=== PATIENT | male | born 1935 | race African-American/Black ===

== ENCOUNTER 2016-11-12 12:25 | Inpatient (IN) ==
[2016-11-12 12:58] LABS: Basophils % 0.1 % (0.0-0.8); Eosinophils % 0.3 % (0.00-10.9); Hematocrit 44.4 VOL% (42.0-52.0); Hemoglobin 14.1 GM/DL (14.0-18.0); Immature Granulocytes % 0.4 %; Immature Granulocytes Absolute 0.04 #; Lymphocytes # 0.4 10*3/uL (1.4-4.0); Lymphocytes % 3.9 % (21.2-54.2); Mean Corpuscular HGB Conc 31.8 GM/DL (32-36); Mean Corpuscular Hemoglobin 29 PG (27-34); Mean Corpuscular Volume 91.9 FL (87-102); Mean Platelet Volume 12.4 FL (9.6-12.0); Monocytes # 0.7 10*3/uL (0.11-0.8); Monocytes % 7.2 % (1.7-12.7); NRBC # 0.03 10*3/uL; Neutrophils # 8.7 10*3/uL (1.4-7.4); Neutrophils % 88.1 % (38.7-73.9); Platelet Count 130 T/CUMM (130-400); Red Blood Count 4.83 MC/CUMM (3.8-5.5); Red Cell Distribution Width 16.9 % (9.3-17.3); White Blood Count 9.9 T/CUMM (4-12)
[2016-11-12] MEDS ORDERED: SODIUM CHLORIDE 0.9% 1,500 ML IV ONE (12:59)
--- NOTE | 2016-11-12 13:06 | XRay Report ---
XR chest 1V portable Indication: Altered level of consciousness. Fever. Comparison: Chest x-ray 01/05/2013 Technique: Portable AP chest was performed. Findings: Right-sided pleural effusion is resolved. The right lung demonstrates minimal residual reticular and linear interstitial markings and perhaps minimal bronchiectasis within the right infrahilar lung. Lungs otherwise appear clear for degree of inspiration. Bones and soft tissues appear stable. Impression: 1. Improved appearance of the right lower chest with resolution of right-sided pleural effusion and minimal residual stranding interstitial markings that may in part reflect scarring. 2. Minimal bronchiectasis is suggested within the right infrahilar lung. 11/12/2016 1:02 PM PROCEDURE INTERPRETED AT [facility] DEPARTMENT OF RADIOLOGY Final Report Signed by: Dr. Pascual Ca
--- NOTE | 2016-11-12 13:22 | CT Report ---
CT head/brain wo con Indication: Altered level of consciousness. Comparison: CT brain 12/02/2012. Technique: CT of the brain was performed without administration of intravenous contrast. The CT examination was performed using one or more of the following dose reduction techniques: Automatic exposure control, adjustment of the mA and kV according to patient size, use of acute or iterative reconstruction techniques. Findings: There is no evidence of acute intracranial mass, hemorrhage, or infarction. Large focus of low attenuation involving cortex and subcortical white matter of the left parietal lobe is present with minimal to no ex vacuo dilatation of the left lateral ventricle. Additional more focal area of subcortical white matter hypoattenuation involving parietal cortex is present. Generalized cerebral atrophy is present. Areas of decreased attenuation within the periventricular white matter and cerebral white matter are present which could be compatible with microvascular ischemia. The basal cisterns are patent. No significant abnormality is demonstrated to involve the posterior fossa or cerebellum. Orbits and globes demonstrate no evidence of acute pathology. Bilateral cataracts are suggested. The paranasal sinuses are clear. No significant abnormality is demonstrated to involve the mastoid air cells. The calvarium and overlying soft tissues demonstrate no evidence of acute pathology. Impression: 1. 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 Generalized atrophy and findings compatible with microvascular ischemia additionally remain present. 11/12/2016 1:12 PM PROCEDURE INTERPRETED AT [facility] DEPARTMENT OF RADIOLOGY Final Report Signed by: Dr. Pascual Ca
--- NOTE | 2016-11-12 13:26 | XRay Report ---
XR foot 2V RT Indication: Discomfort involving second toe. Comparison: None. Technique: AP and lateral images of the right foot were submitted. Findings: There is no evidence of acute pathology affecting the bony structure of the right foot. Soft tissues appear intact. Extensive arterial calcifications present throughout the interdigital branches of the arteries as well as lower anterior posterior tibial arteries and dorsalis pedis artery. Impression: 1. No acute osseous findings are demonstrated. 2. Extensive atherosclerotic calcification is present throughout the lower leg and foot. 11/12/2016 1:23 PM PROCEDURE INTERPRETED AT [facility] DEPARTMENT OF RADIOLOGY Final Report Signed by: Dr. Pascual Ca
[2016-11-12 13:34] LABS: Albumin 3.2 G/DL (3.4-5.0); Calcium 9.3 MG/DL (8.5-10.1); Magnesium 2.8 MG/DL (1.8-2.4); Osmolality,Calculated 318.7 MOS/KG (273-304); Potassium 4.3 MMOL/L (3.5-5.1); Total Protein 6.8 G/DL (6.4-8.3)
[2016-11-12 13:35] LABS: Lactic Acid 3.3 MMOL/L (0.4-2.0)
[2016-11-12] MEDS ORDERED: PIPERACILLIN/TAZOBACTAM 3,375 MG VIAL IV ONE (13:36)
[2016-11-12] MEDS: PIPERACILLIN/TAZOBACTAM 3,375 MG in SODIUM CHLORIDE 0.9% 100 ML IV SCH ×2 (13:40→21:04)
--- NOTE | 2016-11-12 13:44 | Emergency Department Note ---
Fernanda Fields Brittany, am scribing for, and in the presence of, John Cortes MD 13:18. Sophia Fields Phillip K, MD, personally performed the services described in this documentation, ascribed by Elana Michael in my presence, and it is both accurate and complete 344 . Arrival - Arrival Chief Complaint: Altered Mental Status Stated Complaint: altered LOC/fever ED Nursing Triage Note: Brought in by EMS, [facility] for further evaluation of altered LOC and fever-unknown onset. Nursing staff reports that they found patient slumped over in his wheelchair, but are unsure of how long he has been like this. Family reports patient was normal last night. Mode of Arrival: Stretcher Limitations: Altered Mental Status Source: Family Time Seen by Provider: 11/12/16 12:45 - History of Present Illness HPI Narrative: This will be limited secondary to pt's current mental status and dementia. This is an 81 y/o black male,who presents to the ED by EMS for further neurological evaluation. His family reports pt is a current resident of [facility]. Per halfway staff, pt was found slumped over in his wheelchair. The halfway staff is unsure of how long pt was this way. His family reports pt' s Last Known Well Time was last night. senior living staff report a fever which started last night. Pt's family denies a cough. His family states 2 weeks ago, pt had a debridment of the right great toe at [facility]. No other complaints/pain in the ED at this time. Pt has a PMHx of dementia, HI, CAD, COPD, PE, and renal failure. Pt denies a surgical Hx. Pt denies a family medical Hx. Pt denies a social Hx. Onset (ago): hour(s) (Started earlier this morning) Consistency: constant Severity: moderate, severe Allergies/Adverse Reactions: Allergies Allergy/AdvReac Type Severity Reaction Status Date / Time No Known Allergies Allergy Verified 11/03/16 09:39 Review of System - Review of System 12 point system: reviewed and no additional remarkable complaints except as stated - Review of System Constitutional: Present: fever Respiratory: Absent: cough Neurological: Present: other (AMS) Medical,Surgical,& Family Hx - Medical History Cardio: History of: CAD, [place] Neurology: History of: Dementia Respiratory: History of: COPD, Pulmonary Embolism - Social History Smoking Status: Unknown if ever smoked Frequency of Alcohol Use: Unknown Type of Drug Use: Unknown Exam Vital Signs: Vital Signs Temperature 101.3 F H 11/12/16 12:33 Pulse Rate 89 11/12/16 12:33 Respiratory Rate 19 11/12/16 12:33 Blood Pressure 81/42 11/12/16 12:33 O2 Sat by Pulse Oximetry 99 11/12/16 12:33 - General General appearance: in no apparent distress, other (Does not follow commands) - Head Head exam: Present: atraumatic, normocephalic, normal inspection - Eye Eye exam: Present: normal appearance, PERRL, EOMI. Absent: nystagmus, miosis, mydriasis - ENT ENT exam: Present: mucous membranes dry, TM's normal bilaterally, normal external ear exam - Neck Neck exam: Present: normal inspection, full ROM, trachea midline. Absent: tenderness, meningismus, lymphadenopathy, thyromegaly - Chest Chest inspection: Present: normal inspection, symmetric chest wall rise. Absent : tenderness, rash, abscess - Respiratory Respiratory exam: Present: rales (Rales noted in the right base) - Cardiovascular Cardiovascular exam: Present: regular rate, normal rhythm, normal heart sounds. Absent: murmur, rubs, gallop, clicks, JVD - Abdominal Exam Abdominal exam: Present: soft, normal bowel sounds. Absent: distention, tenderness, guarding, rebound, rigidity - Rectal Exam Rectal exam: Present: deferred - Extremities Exam Extremities exam: Present: normal capillary refill, other (Ulcer noted to the dorsal middle index toe, as well as a dark discoloration noted to the plantar aspect of the right foot. ) - Back Exam Back exam: Present: normal inspection, full ROM. Absent: tenderness, muscle spasm, rashes - Neurological Exam Neurological exam: Absent: motor sensory deficit - Psychiatric Psychiatric exam: Present: normal affect, normal mood. Absent: depressed, agitated, anxious, flat affect, manic - Skin Skin exam: Present: warm, dry, intact, normal color. Absent: rash, cyanosis, diaphoresis, erythema, pallor, mottled Results - Labs CBC & BMP: 11/12/16 12:48 11/12/16 12:48 Lab Results: I have reviewed the patients labs Labs: Laboratory Tests 11/12/16 11/12/16 12:48 12:48 WBC 9.9 RBC 4.83 Hgb 14.1 Hct 44.4 MCV 91.9 MCH 29 MCHC 31.8 L RDW 16.9 Plt Count 130 MPV 12.4 H Neut % (Auto) 88.1 H Lymph % (Auto) 3.9 L Washburn % (Auto) 7.2 Eos % (Auto) 0.3 Baso % (Auto) 0.1 Neut # (Auto) 8.7 H Lymph # (Auto) 0.4 L [place]burn # (Auto) 0.7 Eos # (Auto) 0.0 Baso # (Auto) 0.0 Immature Gran % 0.4 Nucleated RBC % 0.3 Immature Gran # 0.04 Nucleated RBCs # 0.03 Sodium 152 H Potassium 4.3 Chloride 113 H Carbon Dioxide 31 Anion Gap 12.3 BUN 61 H Creatinine 2.70 H GFR Calculation 22 BUN/Creatinine Ratio 22.00 H Glucose 115 H Calculated Osmolality 318.7 H Lactic Acid 3.3 H Calcium 9.3 Magnesium 2.8 H Total Bilirubin 2.00 H AST 45 H ALT 49 Alkaline Phosphatase 151 H Total Protein 6.8 Albumin 3.2 L Globulin 3.6 H Albumin/Globulin Ratio 0.8 L - Diagnostic Findings Procedure: Chest x-ray: report reviewed by me (Improved appearance of the right lower chest with resolution of right-sided pleural effusion and minimal residual stranding interstitial markings that may in part reflect scarring. 2. Minimal bronchiectasis is suggested with the right infrahilar lung. ), CT: report reviewed by me (Head CT: 1. Remote infarcts involving the left parietal lobe and right parietal lobe have changed little since the comparison study. Generalized atrophy and findings compatible with microvascular ischemia additionally remain present. ), X-ray: report reviewed by me (Right foot X-ray: No acute osseous findings are demonstrated. 2. Extensive atherosclertoic calcification is present throughtout the lower leg and foot. ) Disposition Clinical Impression: Sepsis, Hypernatremia, Altered mental status, Ulcer of left second toe Case discussed with: patient, patient's family Disposition: Still a Patient Condition: Guarded Additional Instructions: Admit to the hospitalist service for IV fluids and antibiotics Sepsis - Sepsis Classification of Sepsis: Sepsis
[2016-11-12 13:54] LABS: Band Neutrophils 2 % (0-10); Hypochromasia 2+; Lymphocytes 2 % (20-55); Microcytosis Slight; Platelet Estimate Decreased; Segmented Neutrophils 89 % (50-85); Total Cells Counted 100
[2016-11-12 14:09] LABS: Apearance,Urine CLEAR (Clear); Bilirubin,Urine Negative (Negative); Blood, Urine Negative (Negative); Glucose,Urine (UA) Negative (Negative); Hyaline Casts,Urine 5 /LPF (0-3); Ketones,Urine Negative (Negative); Mucus,Urine Occasional /LPF (Occasional); Nitrite,Urine Negative (Negative); Protein,Urine Negative; RBC,Urine 1 /HPF (0-4); Squamous Epithelial Cell,Urine Occasional /HPF (0-10); Urine Color Yellow (Yellow); Urine Specific Gravity 1.011 (1.001-1.035); WBC,Urine 1 /HPF (0-6)
[2016-11-12] MEDS: DOPamine 800 MG/250 ML PREMIX IV SCH (15:06)
[2016-11-12] MEDS ORDERED: DOPamine 800 MG/250 ML PREMIX IV ONE (15:06)
--- NOTE | 2016-11-12 15:12 | XRay Report ---
History: Line placement Date: 11/12/2016 at 3:01 PM Study: Chest x-ray AP portable Comparison exam: 11/12/2016 at 12:21 PM The right IJ central line is well positioned with its tip at the atriocaval junction level. There is no pneumothorax. There is mild cardiomegaly. The mediastinal contour is unchanged. The pulmonary vasculature is not engorged. The lungs are unchanged with some mild subsegmental atelectasis in right lung base. There is no gross pleural effusion. Osseous structures are unchanged. Impression: There is no evidence of pneumothorax following placement of the right IJ central line. Otherwise unchanged from the earlier study PROCEDURE INTERPRETED AT [facility] DEPARTMENT OF RADIOLOGY Final Report Signed by: Dr. Venus Hoffman
--- NOTE | 2016-11-12 15:14 | Event Note ---
Central line procedure note-placement of internal jugular triple-lumen catheter. The patient is an 81-year-old -[place] male with sepsis and hypotension. A triple-lumen IJ was placed using maximum barrier precautions. The patient was seen and examined. The site was marked. A timeout was taken. The patient's identity, procedure, consent and location were identified. The patient was prepped and draped in sterile fashion. Local anesthesia was given with 1% lidocaine plain. The internal jugular vein was accessed and the guide wire placed without difficulty. After using the tissue dilator, the triple lumen catheter was placed over the wire and the wire removed intact. All ports were flushed with normal saline and functioned well. The central line was secured with the enclosed suture. A chest x-ray was reviewed by me to confirm placement. The patient tolerated the procedure well. The nurse will place the appropriate dressing according to the hospital protocols.
[2016-11-12] MEDS ORDERED: SODIUM CHLORIDE 0.9% 1,000 ML IV STA (15:24)
--- NOTE | 2016-11-12 15:24 | Hospitalist History & Physical ---
<Luis Daniel Hernández - Last Filed: 11/12/16 15:55> Assessment and Plan (1) Altered mental status Status: Acute Assessment and plan: Admit to ICU for close monitoring. Pt. is septic and has dementia. Sepsis etiology unclear. Blood cultures obtained, CXR obtained. Repeat bmp, cbc, lactic acid, ammonia in am. Current Visit: Yes (2) Hypernatremia Status: Acute Assessment and plan: Pt. receiving IVF. Will recheck in am. Current Visit: Yes (3) Sepsis Status: Acute Assessment and plan: Admit to ICU for close monitoring. Pt was hypotensive with fever. Sepsis protocol in place. IVF hydration. Blood culture obtained stat. CXR performed ( RLL). Check pt/inr, cbc, lactic acid in am. Urine obtained. Current Visit: Yes Qualifiers: Sepsis type: sepsis due to unspecified organism Qualified Code(s): A41.9 - Sepsis, unspecified organism (4) Ulcer of left second toe Status: Acute Assessment and plan: Consult wound care to evaluate. Culture wound to r/o any infection source Current Visit: Yes Qualifiers: Non-pressure ulcer stage: unspecified non-pressure ulcer stage Qualified Code(s): L97.529 - Non-pressure chronic ulcer of other part of left foot with unspecified severity (5) Acute kidney injury superimposed on chronic kidney disease Status: Acute Assessment and plan: Pt's bun/creatinine are 61/2.70. Pt. has received fluid boluses in ED. Will recheck labs in am. Monitor strict I&Os for patient. [place] cath has been instructed. Current Visit: Yes (6) Hyperbilirubinemia Status: Acute Assessment and plan: Recheck lab in am. Obtain abdominal US. Current Visit: Yes (7) RLL pneumonia Status: Acute Assessment and plan: CXR revealed pneumonia. Pt. will be treated with Levaquin and Zosyn. Continous pulse ox monitoring. Current Visit: Yes Qualifiers: Pneumonia type: due to unspecified organism Qualified Code(s): J18.1 - Lobar pneumonia, unspecified organism (8) Dementia Status: Chronic Assessment and plan: Chronic issue. Restart medications. Current Visit: Yes Qualifiers: Dementia type: Alzheimer's disease History of Present Illness History of present illness: Mr. Jensen is a 81 year old black male with a history of htn, afib, CHF, [place], stroke, dementia, and renal failure that presents to the ED via EMS for further evaluation of altered mental status. The patient is a resident at the [facility]. He has been a resident there since last January when one of his granddaughters (who is POA) was unable to handle his care. Pt. was found at the facility this morning "slumped over" in a wheelchair and EMS was called. His granddaughters are present at bedside and report that his condition today is significantly different from his normal state. They report that the patient ambulates independently and is alert. On examination in the ED, pt is clearly altered. He is arousable but not very responsive. Facial expressions exhibit pain when assessed but pt is unable to verbalize location. Pt. is also noted to be hypotensive (systolic in 70s) with a fever noted above 100. CXR revealed right lower pneumonia. Significant labs are Na 152, bun and creatinine of 61/ 2.7 (respectively), lactic acid 3.3, and a Bilirubin 2. Urine is clean. Patient' s case was discussed with Dr. Hernandez and the patient will be admitted to the hospitalist service and placed in the ICU for close monitoring. Home Medications Medication Instructions Recorded Confirmed Type Acetaminophen 650 mg PO Q4H PRN 11/12/16 11/12/16 History Albuterol Sulfate [Proair Hfa] 2 puffs INH Q4H PRN 11/12/16 11/12/16 History Aspirin EC Tab 81 mg PO DAILY 11/12/16 11/12/16 History Dextromethorph/Quinidine 20-10 1 capsule PO BID 11/12/16 11/12/16 History [Nuedexta] Digoxin Tab [Lanoxin Tab] 0.125 mg PO 1200 11/12/16 11/12/16 History Donepezil HCl [Donepezil HCl] 10 mg PO BEDTIME 11/12/16 11/12/16 History Ferrous Sulfate 325 mg PO BID 11/12/16 11/12/16 History Fluticasone/Salmeterol 250-50 2 puff INH BID 11/12/16 11/12/16 History [Advair 250-50] Furosemide [Furosemide] 80 mg PO BID 11/12/16 11/12/16 History HydrOXYzine PAMOATE CAP [Vistaril 50 mg PO Q1H PRN 11/12/16 11/12/16 History Cap] Magnesium Hydroxide Susp [Milk of 30 ml PO DAILY 11/12/16 11/12/16 History Magnesia] Memantine HCl [Namenda XR] 28 mg PO BEDTIME 11/12/16 11/12/16 History Metoprolol Tartrate Tab [Lopressor 12.5 mg PO BID 11/12/16 11/12/16 History Tab] Multivit-Min/FA/Lycopen/Lutein 1 each PO DAILY 11/12/16 11/12/16 History [Centrum Silver Tablet] Nitroglycerin [Nitro-Bid 2% Oint] 1 applic TOP 0800,1400 11/12/16 11/12/16 History Omeprazole 20 mg PO DAILY 11/12/16 11/12/16 History Sacubitril/Valsartan [Entresto 49 1 tablet PO BID 11/12/16 11/12/16 History mg-51 mg Tablet] Simvastatin [Simvastatin] 10 mg PO BEDTIME 11/12/16 11/12/16 History Warfarin Sodium [Warfarin Sodium] 3 mg PO SUTUTHSA 11/12/16 11/12/16 History Warfarin Sodium [Warfarin Sodium] 4 mg PO MOWEFR 11/12/16 11/12/16 History Allergies Allergy/AdvReac Type Severity Reaction Status Date / Time No Known Allergies Allergy Verified 11/03/16 09:39 Medical,Surgical,& Family Hx - Medical History Cardio: History of: CAD, IL Neurology: History of: Dementia Respiratory: History of: COPD, Pulmonary Embolism - Social History Smoking Status: Unknown if ever smoked Frequency of Alcohol Use: Unknown Type of Drug Use: Unknown Marital Status: Unknown 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 Absent: laceration to eyelids Pupils: Present: ROHINI - Neck Neck exam: Present: normal inspection - Respiratory Respiratory exam: Present: other (coarse) - Cardiovascular Cardiovascular exam: Present: regular rate and rhythm. Absent: JVD - GI/Abdominal GI/Abdominal exam: Present: normal bowel sounds, tenderness, soft - Extremities Exam Extremities exam: Present: other. Absent: edema - Expanded Right Lower Foot/Toe exam: Present: tenderness (2nd toe where ulcer is located) - Neurological Exam Neurological exam: Present: altered, other. Absent: alert - Psychiatric Psychiatric exam: Present: other (unable to fully assess due to mental status) - Skin Skin exam: Present: warm, dry, other (pt has open wound to 2nd toe on right toe) Results - Labs CBC & BMP: 11/12/16 12:48 11/12/16 12:48 Lab Results: I have reviewed the past 24 hour labs Sepsis - Sepsis Classification of Sepsis: Sepsis - Physical Exam Respiratory exam: decreased breath sounds, other (coarse) Capillary Refill: Less Than 3 Seconds Peripheral pulses: Radial (L): 3+/4+, Radial (R): 3+/4+, Dorsalis Pedis (L) PM: 3+/4+, Dorsalis Pedis (R) PM: 3+/4+, Posterior Tibialis (L): 3+/4+, Posterior Tibialis (R): 3+/4+ Cardiovascular exam: regular rate and rhythm Skin exam: normal color <Rui Hernandez - Last Filed: 11/17/16 10:10> Assessment and Plan - Time spent with patient Time spent with patient: Greater than 30 minutes (1) RLL pneumonia Status: Acute Current Visit: Yes Qualifiers: Pneumonia type: due to unspecified organism Qualified Code(s): J18.1 - Lobar pneumonia, unspecified organism (2) Lactic acidosis Status: Acute Current Visit: Yes (3) Metabolic encephalopathy Status: Acute Current Visit: Yes (4) Dementia Status: Chronic Current Visit: Yes Qualifiers: Dementia type: Alzheimer's disease (5) Hyperbilirubinemia Status: Acute Current Visit: Yes (6) Sepsis Status: Acute Current Visit: Yes Qualifiers: Sepsis type: sepsis due to unspecified organism Qualified Code(s): A41.9 - Sepsis, unspecified organism (7) Hypernatremia Status: Acute Current Visit: Yes (8) Ulcer of left second toe Status: Acute Current Visit: Yes Qualifiers: Non-pressure ulcer stage: unspecified non-pressure ulcer stage Qualified Code(s): L97.529 - Non-pressure chronic ulcer of other part of left foot with unspecified severity (9) Acute kidney injury superimposed on chronic kidney disease Problem details: Improving BUN and creatinine. Monitor BUN/Cr in am. Status: Acute Current Visit: Yes History of Present Illness Chief complaint: altered mental status History of present illness: Mr. Jensen is a 81 year old male that resides at the alf due to history of dementia. He was found with altered mental status, leaning over in the chair. He was last seen well yesterday. He had complained of not feeling well but had no specific complaints. In the emergency department he is accompanied by his granddaughters who are involved in his daily care. One granddaughter works at the alf the other granddaughter is a brim plater here at the hospital. They report that despite his dementia he ambulates and converses without difficulty. Today he has a significantly altered and minimally responsive. There is no lateralizing deficit noted. He is being admitted with sepsis. A source has not yet presented itself. His urine does not look infected. He does have evidence of right lower lobe pneumonia. I have personally seen and examined this patient today. I agree with the above note as prepared by the advanced practice provider. I agree with the assessment and plan. The patient was seen with Luis Daniel Hernández NP in the emergency department in room 8. The patient is a full code. His granddaughter is his legal power of commercial litigation attorney and surrogate decision maker. His home medications have been reviewed and reconciled. 12 point system: reviewed and no additional remarkable complaints except as stated Exam - Constitutional Vitals: Period Temp Pulse Resp BP Sys/Grimm Pulse Ox Last 24 Hr 101.3 F-101.3 F 85-93 19-25 73-81/40-43 90-99 Results - Labs CBC & BMP: 11/17/16 04:10 11/17/16 04:15 Lab Results: I have reviewed the past 24 hour labs Sepsis - Sepsis Classification of Sepsis: Sepsis Sepsis documentation within 6 hours of presentation: fluid change - Physical Exam Respiratory exam: decreased breath sounds Capillary Refill: Less Than 3 Seconds Peripheral pulses: Radial (L): 3+/4+, Radial (R): 3+/4+, Dorsalis Pedis (L) PM: 3+/4+, Dorsalis Pedis (R) PM: 3+/4+, Posterior Tibialis (L): 3+/4+, Posterior Tibialis (R): 3+/4+ Cardiovascular exam: regular rate and rhythm Skin exam: normal color
[2016-11-12] MEDS ORDERED: LACTULOSE 20 GM/30 ML UDCUP PO PRN (15:52)
[2016-11-12] MEDS ORDERED: ALBUTEROL 2.5 MG/3 ML NEB RESP TX PRN ×2 (15:52→19:00)
[2016-11-12] MEDS ORDERED: LEVOFLOXACIN INJ 500 MG in PREMIX 1 EACH IV SCH (15:52)
[2016-11-12] MEDS ORDERED: ONDANSETRON 4 MG/2 ML VIAL IV PRN (15:52)
[2016-11-12 16:23] LABS: INR 1.9; PT Patient Result 20.6 SECS
--- NOTE | 2016-11-12 16:38 | Ultrasound Report ---
History: Abdominal pain Date: 11/12/2016 Study: Abdominal ultrasound complete Comparison exam: No previous abdominal ultrasound Real-time ultrasound images are captured and archived. The IVC is patent. The abdominal aorta is normal, though the distal aorta is obscured by bowel gas. There is hepatopedal flow in the portal vein. The liver measures normal length of 13.8 cm and is without focal mass. There is no abnormal intrahepatic biliary dilatation. The common bile duct measures 6.5 mm diameter. Numerous highly echogenic foci with posterior acoustic shadowing compatible with gallstones are noted in the lumen of the gallbladder. The pancreas appears normal. There is no renal abnormality. The right kidney measures 9.0 cm length; the left kidney measures 9.2 cm. The spleen measures 84 x 25 x 32 mm and is without focal mass lesion. Impression: Cholelithiasis without wall thickening or sonographic Gregg sign. PROCEDURE INTERPRETED AT [facility] DEPARTMENT OF RADIOLOGY Final Report Signed by: Dr. eVnus Hoffman
[2016-11-12] MEDS: PANTOPRAZOLE 40 MG VIAL IV SCH (16:50)
[2016-11-12 17:05] LABS: Lactic Acid 2.1 MMOL/L (0.4-2.0)
[2016-11-12] MEDS ORDERED: SODIUM CHLORIDE 0.9% 1,000 ML IV ONE (17:36)
[2016-11-12] MEDS: SODIUM CHLORIDE 0.9% 1,000 ML IV SCH (18:53)
[2016-11-12] MEDS ORDERED: NOREPINEPHRINE 4 MG/4 ML VIAL IV ONE (19:40)
[2016-11-12] MEDS: NOREPINEPHRINE 8 MG in SODIUM CHLORIDE 0.9% 242 ML IV SCH (19:42)
[2016-11-12] MEDS: SIMVASTATIN 10 MG TABLET PO SCH (21:04)
[2016-11-12] MEDS: DONEPEZIL 10 MG TABLET PO SCH (21:04)
[2016-11-12] MEDS: MEMANTINE 10 MG TABLET PO SCH (21:04)
[2016-11-12] MEDS: FLUTICASONE/SALMETEROL 250-50 DISKUS 14 DOSE INH SCH ×2 (21:08→21:27)
[2016-11-12] MEDS: ACETAMINOPHEN 325 MG TABLET PO PRN (23:38)
[2016-11-13 03:01] LABS: ABG Base Excess 0.4 MMOL/L (-2.5-2.5); ABG HCO3 24.8 MMOL/L (20-26); ABG Oxygen Saturation 98.6 % (95-100); ABG PCO2 28.8 MM HG (35-48); ABG PH 7.501 (7.35-7.45); ABG TCO2 19.6 MMOL/L (23-27); Allen Test Positive
[2016-11-13 03:12] LABS: Basophils % 0.2 % (0.0-0.8); Hematocrit 40.3 VOL% (42.0-52.0); Hemoglobin 12.5 GM/DL (14.0-18.0); Immature Granulocytes % 1.1 %; Immature Granulocytes Absolute 0.18 #; Lymphocytes # 1.2 10*3/uL (1.4-4.0); Lymphocytes % 7.3 % (21.2-54.2); Mean Corpuscular Hemoglobin 29 PG (27-34); Mean Corpuscular Volume 93.5 FL (87-102); Mean Platelet Volume 11.7 FL (9.6-12.0); Neutrophils # 13.4 10*3/uL (1.4-7.4); Neutrophils % 79.4 % (38.7-73.9); Platelet Count 154 T/CUMM (130-400); Red Blood Count 4.31 MC/CUMM (3.8-5.5); Red Cell Distribution Width 17.2 % (9.3-17.3); White Blood Count 16.9 T/CUMM (4-12)
[2016-11-13 03:26] LABS: INR 2.7
[2016-11-13 03:27] LABS: PT Patient Result 30.5 SECS
[2016-11-13 03:43] LABS: Osmolality,Calculated 322.2 MOS/KG (273-304)
[2016-11-13 03:49] LABS: Band Neutrophils 4 % (0-10); Lymphocytes 9 % (20-55); Metamyelocytes 3 %; Myelocytes 1 %; Segmented Neutrophils 74 % (50-85)
[2016-11-13 03:51] LABS: Lactic Acid 2.9 MMOL/L (0.4-2.0); Ovalocytes 1+; Platelet Estimate Adequate
[2016-11-13 03:52] LABS: Total Cells Counted 100
[2016-11-13 03:55] LABS: Risk Ratio 1.38; Thyroid Stimulating Hormone 0.707 uIU/ml (0.358-3.74)
[2016-11-13] MEDS: PIPERACILLIN/TAZOBACTAM 3,375 MG in SODIUM CHLORIDE 0.9% 100 ML IV SCH ×3 (05:40→21:14)
--- NOTE | 2016-11-13 06:02 | XRay Report ---
XR chest 1V portable Indication: Shortness of breath Comparison: Chest x-ray 11/12/2016 Technique: Portable AP chest was performed. Findings: New opacity in the lower right chest suggests developing infectious process. The interstitial pattern is minimally prominent within the lower chest bilaterally. This pattern of interstitial opacification has changed little since comparison. The upper lungs are clear. Chest otherwise demonstrates no change. Impression: 1. Infectious process is suggested within the lower right chest. Emphysematous changes are not excluded. 11/13/2016 5:59 AM PROCEDURE INTERPRETED AT [facility] DEPARTMENT OF RADIOLOGY Final Report Signed by: Dr. Pascual Ca
[2016-11-13] MEDS: ACETAMINOPHEN 325 MG TABLET PO PRN ×2 (06:20→21:13)
[2016-11-13] MEDS: SODIUM CHLORIDE 0.9% 1,000 ML IV SCH ×2 (07:47→18:42)
[2016-11-13] MEDS: NOREPINEPHRINE 8 MG in SODIUM CHLORIDE 0.9% 242 ML IV SCH ×2 (07:49→12:53)
[2016-11-13] MEDS: ASPIRIN CHEW 81 MG TABLET PO SCH (08:09)
[2016-11-13] MEDS: FLUTICASONE/SALMETEROL 250-50 DISKUS 14 DOSE INH SCH ×2 (08:09→21:15)
[2016-11-13] MEDS: MEMANTINE 10 MG TABLET PO SCH ×2 (08:09→21:14)
[2016-11-13] MEDS ORDERED: ASPIRIN EC 81 MG TABLET PO SCH (09:00)
--- NOTE | 2016-11-13 09:35 | Physician Query Form ---
CLICK EDIT DOCUMENT TO SELECT QUERY ANSWER --> OK --> SIGN Heidy Henry RN Clinical Worm Sorter W) [phone] (f) [phone] [email or web address]: Make your selection(s) from the choices in EACH section by typing an "x" and enter comments in the comment section. Please use your independent medical judgment in providing your response. This request does not imply that any particular answer is desired or expected. CLINICAL INDICATORS: (Providers should not edit this section) Based on documentation of "Acute sepsis" "Lactic acidosis" "Acute kidney injury on CKD" BP of 81/42. IJ triple lumen catheter placed. Treated with IV Levophed and NS boluses. Please clarify which, if any, of the following is the etiology of the above symptoms and treatment rendered: ( ) Sepsis due to a localized infection, please specify infection: ( ) Severe Sepsis (sepsis with acute organ failure) - Please specify type acute organ failure: (X ) Septic Shock (severe sepsis with hypotension) ( ) SIRS of noninfectious origin ( ) Sepsis due to a device, implant or graft, please specify: ( ) Localized infection only, without systemic illness, please specify infection : ( ) Bacteremia (abnormal lab finding only, does not indicate systemic illness) ( ) Other condition, please specify: ( ) Clinically unable to determine Criteria for Sepsis (SIRS due to an infection) should be based on 2 or more of the following being present: Temperature > 101F or < 96.8F WBC > 12,000 or < 4,000, or > 10% bands Tachycardia HR > 90 beats/minute Tachypnea RR > 20 breaths/minute or PaCO2 > 32mmHg Lactate level > 2.0 mmol/L (>4 is equivalent to severe sepsis) Altered Mental Status Mottling of skin or prolonged capillary refill Non-diabetic hyperglycemia (blood sugar >120 mg/dl) Other evidence of acute organ failure associated with sepsis ( severe sepsis) COMMENTS: PLEASE ALSO DOCUMENT RESPONSE IN PROGRESS NOTES AND/OR DISCHARGE SUMMARY Use of terms such as suspected, likely, or probable (associated with a specific diagnosis that is being evaluated, monitored, or treated as if it exists) are acceptable and can be restated in the discharge summary if not ruled out. MTDD
--- NOTE | 2016-11-13 09:40 | Physician Query Form ---
CLICK EDIT DOCUMENT TO SELECT QUERY ANSWER --> OK --> SIGN Heidy Henry RN Clinical Natural Sciences Professor W) [phone] (f) [phone] [email or web address] PROVIDERS: Make your selection(s) from the choices in EACH section by typing an "x" and enter comments in the comment section. Please use your independent medical judgment in providing your response. This request does not imply that any particular answer is desired or expected. CLINICAL INDICATORS: (Providers should not edit this section) Based on documentation of "Altered mental status" "Chronic dementia" "Acute sepsis" "Acute hypernatremia" "Acute kidney injury" "Acute hypernatremia" serum sodium as high as 156. Treated with NS boluses, IV Zosyn, and IV Levaquin. ACUITY: ( ) Acute ( X) Acute on Chronic ( ) Chronic ( ) Clinically unable to determine NATURE: ( ) Delirium due to general medical condition ( ) Dementia ( ) Encephalopathy ( ) Unconscious ( X) Transient level of awareness ( ) Comatose ( ) Locked-in State ( ) Persistent Vegetative State ( ) Other, please specify: ( ) Clinically unable to determine Please indicate the underlying cause of the altered mental status (CHECK ALL THAT APPLY): ( X) Baseline dementia ( ) Alzheimer's disease ( ) Parkinson's disease ( ) Lewy body dementia ( ) Acute stroke ( ) Late effect of stroke ( ) Reactive (from emotional stress, psychological trauma) ( ) Due to narcotics/other drugs ( ) Post procedural delirium ( ) Transient ischemic attack ( ) Generalized cerebral edema ( ) Normal pressure hydrocephalus ( ) Psychiatric illness ( X) Other, please specify: sepsis ( ) Clinically unable to determine Please indicate if there is an infection, sepsis, dehydration or specific organ failure that is causing the dementia. Be specific with clarifying the relationship between that process and the mental status change. COMMENTS: PLEASE ALSO DOCUMENT RESPONSE IN PROGRESS NOTES AND/OR DISCHARGE SUMMARY Use of terms such as suspected, likely, or probable (associated with a specific diagnosis that is being evaluated, monitored, or treated as if it exists) are acceptable and can be restated in the discharge summary if not ruled out. MTDD
--- NOTE | 2016-11-13 09:55 | Gastrointestinal Consult Note ---
<Ada Chavez - Last Filed: 11/13/16 09:40> Assessment and Plan (1) Elevated LFTs Status: Acute Assessment and plan: 11/13-One day history of changes in mental status from baseline, admitted with findings of sepsis, pneumonia and elevated LFT and cholelithiasis with dilated CBD on US. Febrile with gram positive cocci on preliminary wound culture. Currently on pressor support. Plan and addendum to follow by Dr Tavarez. Current Visit: Yes History of Present Illness Chief complaint: Elevated LFT, cholelithiasis History of present illness: Mr. Jensen is a 81 year old male who was admitted to the hospital with changes in mental status. Pt is unable to provide history therefore information is obtained from chart review and nursing staff. He has a prior history of CVA, heart failure, HTN. Pt lives in a [facility] where he is reported to have been active and ambulating, independent in many of his ADLs despite his history of dementia. He was noted as of last on Thursday to be in his usual state of health however on yesterday he was found slumped over in his chair and was minimally responsive. He was brought to our facility for further evaluation. He was found on admission to have sepsis as well as RLL pneumonia. Pt has a wound to his left second toe as well that has been receiving wound care with no outward evidence of infection however today his preliminary culture is noted to show gram positive cocci, which nursing staff states the wound was cleaned well prior to culturing. He has ran up to 104 temp overnight however this is down to 98 at present. He is also noted to be on pressor support with Levophed and Dopamine. He was found also on admission to have elevated LFT with bilirubin at 2 and AST 45, alk phos 151. His last known LFT was checked in September of this year with no elevated results. Lactic acid is 2.9. He was on Coumadin prior to admission for atrial fibrillation however this is currently held with INR at 2.7. He also has leukocytosis at 16.9. Ultrasound shows cholelithiasis with several possible stones in the gallbladder lumen. CBD also noted at 6.5mm with no evidence of cholecystitis. Home Medications Medication Instructions Recorded Confirmed Type Acetaminophen 650 mg PO Q4H PRN 11/12/16 11/12/16 History Albuterol Sulfate [Proair Hfa] 2 puffs INH Q4H PRN 11/12/16 11/12/16 History Aspirin EC Tab 81 mg PO DAILY 11/12/16 11/12/16 History Dextromethorph/Quinidine 20-10 1 capsule PO BID 11/12/16 11/12/16 History [Nuedexta] Digoxin Tab [Lanoxin Tab] 0.125 mg PO 1200 11/12/16 11/12/16 History Donepezil HCl [Donepezil HCl] 10 mg PO BEDTIME 11/12/16 11/12/16 History Ferrous Sulfate 325 mg PO BID 11/12/16 11/12/16 History Fluticasone/Salmeterol 250-50 2 puff INH BID 11/12/16 11/12/16 History [Advair 250-50] Furosemide [Furosemide] 80 mg PO BID 11/12/16 11/12/16 History HydrOXYzine PAMOATE CAP [Vistaril 50 mg PO Q1H PRN 11/12/16 11/12/16 History Cap] Magnesium Hydroxide Susp [Milk of 30 ml PO DAILY 11/12/16 11/12/16 History Magnesia] Memantine HCl [Namenda XR] 28 mg PO BEDTIME 11/12/16 11/12/16 History Metoprolol Tartrate Tab [Lopressor 12.5 mg PO BID 11/12/16 11/12/16 History Tab] Multivit-Min/FA/Lycopen/Lutein 1 each PO DAILY 11/12/16 11/12/16 History [Centrum Silver Tablet] Nitroglycerin [Nitro-Bid 2% Oint] 1 applic TOP 0800,1400 11/12/16 11/12/16 History Omeprazole 20 mg PO DAILY 11/12/16 11/12/16 History Sacubitril/Valsartan [Entresto 49 1 tablet PO BID 11/12/16 11/12/16 History mg-51 mg Tablet] Simvastatin [Simvastatin] 10 mg PO BEDTIME 11/12/16 11/12/16 History Warfarin Sodium [Warfarin Sodium] 3 mg PO SUTUTHSA 11/12/16 11/12/16 History Warfarin Sodium [Warfarin Sodium] 4 mg PO MOWEFR 11/12/16 11/12/16 History Allergies Allergy/AdvReac Type Severity Reaction Status Date / Time No Known Allergies Allergy Verified 11/03/16 09:39 Medical,Surgical,& Family Hx - Medical History Cardio: History of: Cardiac Dysrhythmia (A. Fib), CHF, CAD, Hypertension, [place] Neurology: History of: Cerebrovascular Accident, Dementia HEENT: History of: Dental Problems (Missing uppers and lowers), Glaucoma Endocrine: History of: Dyslipidemia No history of: Diabetes Mellitus (IDDM), Diabetes Mellitus (NIDDM), Thyroid Disorder Respiratory: History of: COPD, Pulmonary Embolism Renal: History of: Renal Failure - Surgical History HEENT Surgeries: Patient denies: Tonsilectomy & Adenoidectomy Abdominal Surgeries: Patient denies: Appendectomy, Cholecystectomy - Social History Smoking Status: Unknown if ever smoked Frequency of Alcohol Use: Unknown Type of Drug Use: Unknown ROS unobtainable: due to mental status Exam - Constitutional Vitals: Period Temp Pulse Resp BP Sys/Grimm Pulse Ox Last 24 Hr 98.0 F-104.3 F 75-118 1-30 55-122/28-75 90-100 General appearance: no acute distress, under weight - Head Head exam: Present: normal inspection, normocephalic - Eye Eye exam: Present: other (lids and conjunctiva unremarkable). Absent: scleral icterus - ENT ENT exam: Present: normal exam, normal oropharynx - Neck Neck exam: Present: normal inspection - Respiratory Respiratory exam: Present: clear to auscultation bilaterally. Absent: rales, rhonchi, wheezes - Cardiovascular Cardiovascular exam: Present: regular rate and rhythm. Absent: diastolic murmur , JVD, systolic murmur - GI/Abdominal GI/Abdominal exam: Present: normal bowel sounds, soft. Absent: ascites, distended, mass, organomegaly, tenderness - Extremities Exam Extremities exam: Present: normal inspection, full ROM - Back Exam Back exam: Present: normal inspection - Neurological Exam Neurological exam: Present: alert, altered - Psychiatric Psychiatric exam: Present: normal affect, normal mood - Skin Skin exam: Present: normal color, warm, dry Results - Labs CBC & BMP: 11/13/16 03:00 11/13/16 03:00 Lab Results: I have reviewed the past 24 hour labs <Michelet Tavarez - Last Filed: 11/13/16 18:04> History of Present Illness History of present illness: Mr. Jensen is a 81 year old male Exam - Constitutional Vitals: Period Temp Pulse Resp BP Sys/Grimm Pulse Ox Last 24 Hr 98.0 F-104.3 F 75-124 1-30 55-130/28-76 90-97 Results - Labs CBC & BMP: 11/13/16 03:00 11/13/16 03:00
--- NOTE | 2016-11-13 14:33 | ECHO Report ---
Xavier Jensen Exam Date: 11/13/2016 07:30 Referring Physician: Technologist: Trinidad Jarrell RDCS Age: 81 Ht (in): 66 Wt (lb): 110 Gender: M Exam Location: [facility] Echo Indications: Altered mental status, RLL pneumonia, Lactic acidosis, Metabolic encephalopathy, Dementia, Sepsis, COPD, CAD, Hyperbilirubinemia, Hypernatremia, Chronic kidney disease, unspecified BP: 82 / 37 HR: 76 Rhythm: Atrial fibrillation Technical Quality: IMPRESSIONS Normal left ventricular cavity size. Mild concentric hypertrophy. Abnormal septal motion, with normal systolic thickening. Estimated left ventricular ejection fraction 50%. Grade 3 diastolic dysfunction. Severe right atrial enlargement. Moderate left atrial enlargement. Mitral annular calcification. Thickened mitral valve. Mild mitral insufficiency. Aortic valve sclerosis, without stenosis. Mild aortic valve regurgitation. Moderate tricuspid regurgitation. Severe pulmonary hypertension. Mild pulmonic valve insufficiency. MEASUREMENTS (Male / Female) Normal Values 2D ECHO LV Diastolic Diameter PLAX 4.5 cm 4.2 - 5.9 / 3.9 - 5.3 cm LV Systolic Diameter PLAX 3.3 cm LV Fractional Shortening PLAX 28.6 % IVS Diastolic Thickness 1.1 cm 0.6 - 1.0 / 0.6 - 0.9 cm LVPW Diastolic Thickness 1.1 cm 0.6 - 1.0 / 0.6 - 0.9 cm RV Internal Dim ED PLAX 3.8 cm Aortic Root Diameter 3.6 cm LA Systolic Diameter LX 4.5 cm 3.0 - 4.0 / 2.7 - 3.8 cm DOPPLER TR Peak Velocity 448.0 cm/s TR Peak Gradient 80.3 mmHg FINDINGS Left Ventricle Normal left ventricular cavity size. Mild concentric hypertrophy. Abnormal septal motion, with normal systolic thickening. Estimated left ventricular ejection fraction 50%. Grade 3 diastolic dysfunction. Right Ventricle Mildly dilated right ventricle, with normal systolic function. Right Atrium Severely increased right atrial size. Left Atrium Moderately dilated left atrium. Mitral Valve Mitral annular calcification. Thickened mitral valve. Mild concentric insufficiency, no stenosis. Aortic Valve Aortic valve sclerosis, without stenosis. Mild aortic valve regurgitation. Tricuspid Valve Morphologically normal tricuspid valve. Moderate tricuspid valve regurgitation. Tricuspid regurgitation velocities suggest a PAP of 80 mmHg plus RA pressure. Pulmonic Valve Morphologically normal pulmonic valve. Mild pulmonary valve regurgitation. Pericardium Normal pericardium without effusion. Aorta Normal ascending aorta dimension. Sumeet Lorie (Electronically Signed) Final Date: 13 November 2016 14:32
[2016-11-13] MEDS: PANTOPRAZOLE 40 MG VIAL IV SCH (15:55)
[2016-11-13] MEDS: LEVOFLOXACIN INJ 250 MG in PREMIX 1 EACH IV SCH (16:18)
[2016-11-13] MEDS: DOPamine 800 MG/250 ML PREMIX IV SCH (16:37)
--- NOTE | 2016-11-13 17:43 | Hospitalist Progress Note ---
Assessment and Plan - Time spent with patient Time spent with patient: Greater than 30 minutes (1) HCAP (healthcare-associated pneumonia) Status: Acute Current Visit: Yes (2) Metabolic encephalopathy Status: Acute Current Visit: Yes (3) Dementia Status: Acute Current Visit: Yes (4) Toe ulcer Problem details: Left dorsal second toe distal segment Status: Chronic Current Visit: Yes (5) Acute kidney injury superimposed on chronic kidney disease Status: Acute Current Visit: Yes Hospitalist: Subjective Interval history: Patient is an 81-year-old black male resident of a local correction. alf staff reported that patient was less responsive than usual. They arrange for transfer to this hospital for additional testing. Patient has a history of dementia. His baseline cognitive ability and physical function are not well documented. Patient's granddaughter is his surrogate for medical decision- making she is an employee of this hospital. I am trying to arrange a family meeting tomorrow to review patient's current status and clarify treatment goals. Exam - Constitutional Vitals: Period Temp Pulse Resp BP Sys/Grimm Pulse Ox Last 24 Hr 98.0 F-104.3 F 75-124 1-30 55-130/28-76 90-97 General appearance: under weight - Head Head exam: Present: normal inspection - Neck Neck exam: Absent: meningismus, tenderness - Respiratory Respiratory exam: Present: clear to auscultation bilaterally, decreased breath sounds. Absent: rales, wheezes - Cardiovascular Cardiovascular exam: Present: regular rate and rhythm - GI/Abdominal GI/Abdominal exam: Present: hypoactive bowel sounds, soft. Absent: mass, rebound - Extremities Exam Extremities exam: Present: normal inspection. Absent: calf tenderness, edema - Expanded Right Lower Lower leg exam: Present: normal inspection. Absent: palpable cord (Right second toe dorsal surface distal segment ulcer) - Neurological Exam Neurological exam: Present: other (Arousable; patient answers simple questions and can follow simple instructions) - Psychiatric Psychiatric exam: Present: other (Sleepy) - Skin Skin exam: Present: normal color, dry Results - Labs CBC & BMP: 11/13/16 03:00 11/13/16 03:00
[2016-11-13] MEDS: NOREPINEPHRINE 16 MG in SODIUM CHLORIDE 0.9% 234 ML IV SCH (18:00)
[2016-11-13] MEDS: DONEPEZIL 10 MG TABLET PO SCH (21:13)
[2016-11-13] MEDS: SIMVASTATIN 10 MG TABLET PO SCH (21:14)
[2016-11-14] MEDS: ACETAMINOPHEN 325 MG TABLET PO PRN ×2 (01:12→05:37)
[2016-11-14] MEDS: NOREPINEPHRINE 16 MG in SODIUM CHLORIDE 0.9% 234 ML IV SCH ×3 (01:12→20:10)
[2016-11-14 03:24] LABS: ABG Base Excess 1.3 MMOL/L (-2.5-2.5); ABG HCO3 25.6 MMOL/L (20-26); ABG Oxygen Saturation 99.2 % (95-100); ABG PCO2 24.4 MM HG (35-48); ABG PH 7.564 (7.35-7.45); ABG TCO2 19.1 MMOL/L (23-27)
[2016-11-14] MEDS: PIPERACILLIN/TAZOBACTAM 3,375 MG in SODIUM CHLORIDE 0.9% 100 ML IV SCH ×3 (04:26→20:32)
[2016-11-14 05:23] LABS: Basophils # 0.1 10*3/uL (0.0-0.2); Basophils % 0.2 % (0.0-0.8); Eosinophils % 0.1 % (0.00-10.9); Hematocrit 40.5 VOL% (42.0-52.0); Hemoglobin 12.2 GM/DL (14.0-18.0); Immature Granulocytes % 6.4 %; Immature Granulocytes Absolute 1.64 #; Lymphocytes # 1.3 10*3/uL (1.4-4.0); Lymphocytes % 5.2 % (21.2-54.2); Mean Corpuscular HGB Conc 30.1 GM/DL (32-36); Mean Corpuscular Hemoglobin 29 PG (27-34); Mean Corpuscular Volume 95.7 FL (87-102); Mean Platelet Volume 12.9 FL (9.6-12.0); Monocytes # 2.8 10*3/uL (0.11-0.8); Monocytes % 10.9 % (1.7-12.7); Neutrophils # 19.9 10*3/uL (1.4-7.4); Neutrophils % 77.2 % (38.7-73.9); Platelet Count 128 T/CUMM (130-400); Red Blood Count 4.23 MC/CUMM (3.8-5.5); Red Cell Distribution Width 17.2 % (9.3-17.3); White Blood Count 25.8 T/CUMM (4-12)
[2016-11-14 06:15] LABS: Calcium 8.3 MG/DL (8.5-10.1); Magnesium 2.5 MG/DL (1.8-2.4); Potassium 3.8 MMOL/L (3.5-5.1)
[2016-11-14 06:19] LABS: Band Neutrophils 29 % (0-10); Lymphocytes 6 % (20-55); Metamyelocytes 5 %; Myelocytes 2 %; Platelet Estimate Adequate; Segmented Neutrophils 51 % (50-85); Total Cells Counted 100
--- NOTE | 2016-11-14 06:47 | XRay Report ---
XR chest 1V portable Indication: Shortness of breath Comparison: Chest x-ray 11/13/2016 Technique: Portable AP chest was performed. Findings: Emphysematous changes of the lungs are suggested. The heart size is stable. Right IJ central venous catheter is stable. Small right-sided pleural effusion is not excluded. This been interval partial clearing of lung parenchyma within the mid to lateral aspect of the right lung base. Bones and soft tissues appear stable. Impression: 1. Some improvement in the appearance of the lower right lung parenchyma is suggested. Small right-sided pleural effusion is not excluded. 11/14/2016 6:44 AM PROCEDURE INTERPRETED AT [facility] DEPARTMENT OF RADIOLOGY Final Report Signed by: Dr. Pascual Ca
[2016-11-14] MEDS: ASPIRIN CHEW 81 MG TABLET PO SCH (09:20)
[2016-11-14] MEDS: FLUTICASONE/SALMETEROL 250-50 DISKUS 14 DOSE INH SCH ×2 (09:20→20:32)
[2016-11-14] MEDS: MEMANTINE 10 MG TABLET PO SCH ×2 (09:20→20:32)
--- NOTE | 2016-11-14 09:39 | Gastrointestinal Progress Note ---
<Ada Chavez Janis - Last Filed: 11/14/16 09:36> Assessment and Plan (1) Elevated LFTs Status: Acute Assessment and plan: 11/14-no repeat LFTs today. Continued fever and elevation in WBCs noted. Gram- negative rods on preliminary UA. No complaints of pain. Recheck LFTs today continue to monitor at present time. Plan an addendum to follow by Dr. Tavarez. 11/13-One day history of changes in mental status from baseline, admitted with findings of sepsis, pneumonia and elevated LFT and cholelithiasis with dilated CBD on US. Febrile with gram positive cocci on preliminary wound culture. Currently on pressor support. Plan and addendum to follow by Dr Tavarez. Current Visit: Yes Gastroenterology - PN: Subj Interval history: CC: Elevated LFTs Patient is seen, sitting up in bed, easily arouses to verbal stimuli. He states he is feeling well today and denies any abdominal pain. He continued to run fever throughout the night up to 102.6. He remains on Levophed for pressor support at this time. He is noted on his preliminary UA at this time as well to have gram-negative rods noted. Abdomen is soft, nontender. WBCs have increased at 25,000. No repeat LFTs noted today. ROS: Denies shortness of breath or chest pain Exam (Progress Note) - Constitutional Vitals: Period Temp Pulse Resp BP Sys/Grimm Pulse Ox Last 24 Hr 98.6 F-102.6 F 79-402 12-32 71-148/41-84 91-100 General appearance: normal weight, no acute distress - Head Head exam: Present: normal inspection, normocephalic - Eye Eye exam: Present: other (Lids and conjunctivae unremarkable). Absent: scleral icterus - ENT ENT exam: Present: normal exam, normal oropharynx - Neck Neck exam: Present: normal inspection - Respiratory Respiratory exam: Present: clear to auscultation bilaterally. Absent: rales, rhonchi, wheezes - Cardiovascular Cardiovascular exam: Present: regular rate and rhythm. Absent: diastolic murmur , JVD, systolic murmur - GI/Abdominal GI/Abdominal exam: Present: normal bowel sounds, soft. Absent: ascites, distended, mass, organomegaly, tenderness - Extremities Exam Extremities exam: Present: normal inspection, full ROM - Back Exam Back exam: Present: normal inspection - Neurological Exam Neurological exam: Present: alert, altered - Psychiatric Psychiatric exam: Present: normal affect, normal mood - Skin Skin exam: Present: normal color, warm, dry Results - Labs CBC & BMP: 11/14/16 04:00 11/14/16 04:35 Lab Results: I have reviewed the past 24 hour labs <Michelet Tavarez - Last Filed: 11/14/16 15:30> Exam (Progress Note) - Constitutional Vitals: Period Temp Pulse Resp BP Sys/Grimm Pulse Ox Last 24 Hr 98.1 F-102.6 F 82-402 12-32 66-148/40-84 90-100 Results - Labs CBC & BMP: 11/14/16 04:00 11/14/16 04:35
[2016-11-14 10:14] LABS: Albumin 2.4 G/DL (3.4-5.0); Bilirubin,Direct 1.4 MG/DL (0.0-0.20); Bilirubin,Indirect 0.5 MG/DL (0.0-1.0); Bilirubin,Total 1.9 MG/DL (0.2-1.0); Total Protein 5.5 G/DL (6.4-8.3)
[2016-11-14] MEDS: SODIUM CHLORIDE 0.9% 1,000 ML IV SCH ×2 (12:45→20:12)
--- NOTE | 2016-11-14 13:11 | Hospitalist Progress Note ---
Assessment and Plan - Time spent with patient Time spent with patient: Greater than 30 minutes Time spent discussing smoking cessation with patient: (Conference with patient' s granddaughter to review current status and clarify treatment goals. Also clarify advanced directives.) (1) HCAP (healthcare-associated pneumonia) Problem details: Worsening leukocytosis. Gram-positive cocci reported in right second toe wound. E. coli growth and urine culture. No growth in 11/12/2016 blood cultures. Patient is receiving Levaquin and Zosyn empiric antibiotic therapy. Status: Acute Current Visit: Yes (2) Metabolic encephalopathy Status: Acute Current Visit: Yes (3) Dementia Status: Acute Current Visit: Yes (4) Toe ulcer Problem details: Left dorsal second toe distal segment. Wound management strategies reviewed. Status: Chronic Current Visit: Yes (5) Acute kidney injury superimposed on chronic kidney disease Status: Acute Current Visit: Yes (6) Septic shock Problem details: Patient requires IV fluid hydration and pressor agents for blood pressure support. He required Levophed and dopamine all day yesterday. Dopamine has been weaned and he is maintaining systolic above 90 receiving low flow levophed only. Status: Acute Current Visit: Yes (7) Cholelithiasis Problem details: Moderate common bile duct dilatation reported on ultrasound exam (6.5 mm). Gallbladder wall thickening not reported. Status: Acute Current Visit: Yes (8) Stroke Problem details: Remote infarcts reported on head CT scan without IV contrast. These involve left parietal lobe and right parietal lobe similar changes reported on brain CT 12/02/2012. Status: Chronic Current Visit: Yes Hospitalist: Subjective Interval history: Patient is more somnolent less responsive today compared with yesterday's exam. He appears to be sleeping and does not follow simple commands. Exam - Constitutional Vitals: Period Temp Pulse Resp BP Sys/Grimm Pulse Ox Last 24 Hr 98.1 F-102.6 F 80-402 12-32 66-148/40-84 90-100 General appearance: no acute distress, under weight - Head Head exam: Present: normal inspection - ENT ENT exam: Present: other (Right internal jugular catheter insertion site remains clean and dry) - Respiratory Respiratory exam: Present: clear to auscultation bilaterally. Absent: accessory muscle use, rales, wheezes - Cardiovascular Cardiovascular exam: Present: regular rate and rhythm. Absent: carotid bruit - GI/Abdominal GI/Abdominal exam: Present: normal bowel sounds, soft. Absent: tenderness - Extremities Exam Extremities exam: Present: normal inspection. Absent: edema - Neurological Exam Neurological exam: Present: other (Spontaneous limb movement) - Psychiatric Psychiatric exam: Absent: agitated - Skin Skin exam: Present: normal color, warm, dry. Absent: rash Results - Labs CBC & BMP: 11/14/16 04:00 11/14/16 04:35
[2016-11-14] MEDS ORDERED: DIGOXIN 0.5 MG/2 ML AMP IV ONE (13:24)
--- NOTE | 2016-11-14 14:15 | EKG Report ---
Stationary ECG Study [facility] Test Date: 11/14/2016 2:14:30 PM Pat Name: JAD ARGUELLES Department: Room: 126 Gender: M Installation Drafter: ABBY : 1935 Requested by: Denia Langston Order Number: [id number] Reading MD: LISA SHARMA Intervals [place] Rate: 118 P: 999 OK: 0 QRS: 118 QRSD: 94 T: 0 QT: 187 QTc: 257 Interpretive Statements Atypical atrial flutter with variable conduction and rate dependent aberrancy LOW QRS VOLTAGE IN EXTREMITY LEADS Electronically Signed On 11-14-16 14:16:43 CDT by LISA SHARMA [id number]
[2016-11-14] MEDS ORDERED: POTASSIUM CHLORIDE RIDER 10 MEQ in PREMIX 1 EACH IV PRN (14:43)
[2016-11-14] MEDS ORDERED: POTASSIUM CHLORIDE RIDER 20 MEQ in PREMIX 1 EACH IV PRN (14:43)
[2016-11-14] MEDS ORDERED: DEXTROSE 5% IV ONE (16:06)
[2016-11-14] MEDS ORDERED: AMIODARONE IV ONE (16:06)
[2016-11-14] MEDS ORDERED: AMIODARONE 150 MG/3 ML VIAL ONE ×2 (16:09→16:10)
[2016-11-14] MEDS: DOPamine 800 MG/250 ML PREMIX IV SCH ×2 (16:45→18:09)
[2016-11-14] MEDS: LEVOFLOXACIN INJ 250 MG in PREMIX 1 EACH IV SCH (17:48)
[2016-11-14] MEDS: PANTOPRAZOLE 40 MG VIAL IV SCH (17:48)
[2016-11-14] MEDS: AMIODARONE INJ 450 MG in DEXTROSE 5% 241 ML IV SCH (20:12)
[2016-11-14] MEDS: DONEPEZIL 10 MG TABLET PO SCH (20:32)
[2016-11-14] MEDS: SIMVASTATIN 10 MG TABLET PO SCH (20:32)
[2016-11-15] MEDS: AMIODARONE INJ 450 MG in DEXTROSE 5% 241 ML IV SCH ×3 (02:44→18:19)
[2016-11-15] MEDS: ACETAMINOPHEN 325 MG TABLET PO PRN ×4 (05:00→20:05)
[2016-11-15] MEDS: PIPERACILLIN/TAZOBACTAM 3,375 MG in SODIUM CHLORIDE 0.9% 100 ML IV SCH ×3 (05:00→20:05)
[2016-11-15 05:33] LABS: Basophils # 0.1 10*3/uL (0.0-0.2); Basophils % 0.2 % (0.0-0.8); Eosinophils # 0.1 10*3/uL (0.0-0.87); Eosinophils % 0.4 % (0.00-10.9); Immature Granulocytes % 0.8 %; Immature Granulocytes Absolute 0.18 #; Lymphocytes # 1.4 10*3/uL (1.4-4.0); Lymphocytes % 6.4 % (21.2-54.2); Mean Corpuscular HGB Conc 29.3 GM/DL (32-36); Mean Corpuscular Hemoglobin 29 PG (27-34); Mean Corpuscular Volume 98.3 FL (87-102); Mean Platelet Volume 11.8 FL (9.6-12.0); Monocytes # 1.7 10*3/uL (0.11-0.8); Monocytes % 7.8 % (1.7-12.7); NRBC # 0.02 10*3/uL; Neutrophils # 18.6 10*3/uL (1.4-7.4); Neutrophils % 84.4 % (38.7-73.9); Platelet Count 114 T/CUMM (130-400); Red Blood Count 4.24 MC/CUMM (3.8-5.5); Red Cell Distribution Width 16.7 % (9.3-17.3); White Blood Count 22.1 T/CUMM (4-12)
[2016-11-15 05:41] LABS: Hematocrit 40.8 VOL% (42.0-52.0); Hemoglobin 12.5 GM/DL (14.0-18.0)
[2016-11-15 06:28] LABS: Calcium 8.3 MG/DL (8.5-10.1); Magnesium 2.3 MG/DL (1.8-2.4); Osmolality,Calculated 327.7 MOS/KG (273-304); Potassium 4.5 MMOL/L (3.5-5.1)
[2016-11-15 07:49] LABS: Band Neutrophils 8 % (0-10); Hypochromasia 1+; Lymphocytes 7 % (20-55); Myelocytes 2 %; Platelet Estimate Decreased; Segmented Neutrophils 79 % (50-85); Total Cells Counted 100
[2016-11-15] MEDS: MEMANTINE 10 MG TABLET PO SCH ×2 (09:00→20:05)
[2016-11-15] MEDS: ASPIRIN CHEW 81 MG TABLET PO SCH (09:00)
[2016-11-15] MEDS: FLUTICASONE/SALMETEROL 250-50 DISKUS 14 DOSE INH SCH ×2 (09:00→20:06)
--- NOTE | 2016-11-15 12:44 | Hospitalist Progress Note ---
Assessment and Plan (1) HCAP (healthcare-associated pneumonia) Problem details: Worsening leukocytosis. MRSE growth reported in right second toe wound culture 11/12/2016. E. coli growth in 11/12/2016 urine culture. No growth in 11/12/2016 blood cultures. Patient is receiving Levaquin and Zosyn empiric antibiotic therapy. Patient's condition is worsening. He is less responsive. Leukocytosis persists. Fever continues. Status: Acute Current Visit: Yes (2) Metabolic encephalopathy Status: Acute Current Visit: Yes (3) Dementia Status: Acute Current Visit: Yes (4) Toe ulcer Problem details: Left dorsal second toe distal segment. Wound management strategies reviewed. Status: Chronic Current Visit: Yes (5) Acute kidney injury superimposed on chronic kidney disease Problem details: Improving BUN and creatinine. Today measures 39 and 1.9 respectively. Status: Acute Current Visit: Yes (6) Septic shock Problem details: Patient requires IV fluid hydration and pressor agents for blood pressure support. He required Levophed and dopamine all day 11/13/16. Yesterday patient received Levophed only. Today patient is receiving dopamine only to maintain systolic blood pressure consistently above 90 mmHg. Status: Acute Current Visit: Yes (7) Cholelithiasis Problem details: Moderate common bile duct dilatation reported on ultrasound exam (6.5 mm). Gallbladder wall thickening not reported. Low clinical suspicion for acute cholecystitis. Status: Acute Current Visit: Yes (8) Stroke Problem details: Remote infarcts reported on head CT scan without IV contrast. These involve left parietal lobe and right parietal lobe similar changes reported on brain CT 12/02/2012. Status: Chronic Current Visit: Yes (9) Tachycardia Problem details: Likely related to sepsis. Patient has alternated rhythm between MAT A flutter ST and atrial fibrillation. His ventricular rate is better controlled today. Yesterday he received an IV digoxin dose and IV amiodarone loading dose and infusion. Status: Acute Current Visit: Yes Hospitalist: Subjective Interval history: Patient is unresponsive this morning. I reviewed his clinical status, treatment plan, and patient's poor prognosis with several family members at patient's bedside morning. Exam - Constitutional Vitals: Period Temp Pulse Resp BP Sys/Grimm Pulse Ox Last 24 Hr 97.7 F-101.4 F 77-124 13-29 76-131/38-72 92-100 General appearance: under weight - Head Head exam: Present: normal inspection - Neck Neck exam: Present: other (No resistance to passive neck flexion or hyperextension). Absent: meningismus - Respiratory Respiratory exam: Present: decreased breath sounds. Absent: rales, wheezes - Cardiovascular Cardiovascular exam: Present: regular rate and rhythm - GI/Abdominal GI/Abdominal exam: Present: hypoactive bowel sounds, soft. Absent: distended, rebound - Extremities Exam Extremities exam: Absent: edema - Neurological Exam Neurological exam: Present: other (Unresponsive) - Skin Skin exam: Present: warm, dry. Absent: rash Results - Labs CBC & BMP: 11/15/16 05:20 11/15/16 05:20
[2016-11-15] MEDS: DOPamine 800 MG/250 ML PREMIX IV SCH ×2 (13:22→18:19)
[2016-11-15] MEDS: PANTOPRAZOLE 40 MG VIAL IV SCH (15:46)
[2016-11-15] MEDS: LEVOFLOXACIN INJ 250 MG in PREMIX 1 EACH IV SCH (15:47)
[2016-11-15] MEDS: NOREPINEPHRINE 16 MG in SODIUM CHLORIDE 0.9% 234 ML IV SCH (18:18)
[2016-11-15] MEDS: SODIUM CHLORIDE 0.9% 1,000 ML IV SCH (18:22)
[2016-11-15] MEDS: SIMVASTATIN 10 MG TABLET PO SCH (20:05)
[2016-11-15] MEDS: DONEPEZIL 10 MG TABLET PO SCH (20:05)
[2016-11-16] MEDS: AMIODARONE INJ 450 MG in DEXTROSE 5% 241 ML IV SCH (00:25)
[2016-11-16] MEDS: PIPERACILLIN/TAZOBACTAM 3,375 MG in SODIUM CHLORIDE 0.9% 100 ML IV SCH ×3 (05:22→20:29)
--- NOTE | 2016-11-16 09:22 | Hospitalist Progress Note ---
Assessment and Plan - Time spent with patient Time spent with patient: Greater than 30 minutes (1) Septic shock Problem details: 11/16/16: Off IV levophed, but still on IV dopamin. Continue IV antibiotics and IVF. Status: Acute Current Visit: Yes (2) Metabolic encephalopathy Status: Acute Current Visit: Yes (3) HCAP (healthcare-associated pneumonia) Problem details: 11/16/16: Mental status appeared to be no significant change when compared to yesterday. Continue current IV antibiotics treatment regimen. Consult ID in am. Per Dr. Langston's note on 11/15/16: Worsening leukocytosis. MRSE growth reported in right second toe wound culture 11/12/2016. E. coli growth in 11/12/2016 urine culture. No growth in 11/12/2016 blood cultures. Patient is receiving Levaquin and Zosyn empiric antibiotic therapy. Patient's condition is worsening. He is less responsive. Leukocytosis persists. Fever continues. Status: Acute Current Visit: Yes (4) Acute kidney injury superimposed on chronic kidney disease Problem details: Improving BUN and creatinine. Monitor BUN/Cr in am. Status: Acute Current Visit: Yes (5) Elevated LFTs Status: Acute Assessment and plan: Monitor LFP in am. Current Visit: Yes (6) Dementia Status: Acute Current Visit: Yes (7) Toe ulcer Problem details: Left dorsal second toe distal segment. Wound management strategies reviewed. Status: Chronic Current Visit: Yes (8) Cholelithiasis Problem details: Moderate common bile duct dilatation reported on ultrasound exam (6.5 mm). Gallbladder wall thickening not reported. Low clinical suspicion for acute cholecystitis. Status: Acute Current Visit: Yes Hospitalist: Subjective Interval history: No overnight acute event. On IV pressor and IV antibiotics. Has Pneumonia,and R 2nd toe wound. No fever or diarrhea. Exam - Constitutional Vitals: Period Temp Pulse Resp BP Sys/Grimm Pulse Ox Last 24 Hr 97.5 F-101.1 F 57-118 11-74 76-124/38-72 92-100 Exam: GENERAL: Lying in bed supine. Can use hands to squeeze my hand. HEENT: Pupils equally round and reactive to light, conjunctivae clear. TMs marcos and translucent. Normal lips, teeth and gums. NECK: Supple without mass. HEART: RRR, no murmur. CHEST: Normal shape, fair air movement, no retractions. CV: RRR, no murmurs, 2+ peripheral pulses LUNGS: Decreased breath sound at b/l lower lobes. ABDOMEN: Soft, nontender, and no hepatosplenomegaly. SKIN: No rash or edema. Pale. NEURO: Awake. Can follow very simple command. Results - Labs CBC & BMP: 11/15/16 05:20 11/15/16 05:20
[2016-11-16] MEDS: ASPIRIN CHEW 81 MG TABLET PO SCH (09:52)
[2016-11-16] MEDS: MEMANTINE 10 MG TABLET PO SCH ×2 (09:52→20:29)
[2016-11-16] MEDS: FLUTICASONE/SALMETEROL 250-50 DISKUS 14 DOSE INH SCH ×2 (09:53→20:30)
[2016-11-16] MEDS: PANTOPRAZOLE 40 MG VIAL IV SCH (15:52)
[2016-11-16] MEDS: LEVOFLOXACIN INJ 250 MG in PREMIX 1 EACH IV SCH (15:53)
[2016-11-16] MEDS: NOREPINEPHRINE 16 MG in SODIUM CHLORIDE 0.9% 234 ML IV SCH (17:30)
[2016-11-16] MEDS: DOPamine 800 MG/250 ML PREMIX IV SCH (18:11)
[2016-11-16] MEDS: SODIUM CHLORIDE 0.9% 1,000 ML IV SCH (18:46)
[2016-11-16] MEDS: SIMVASTATIN 10 MG TABLET PO SCH (20:29)
[2016-11-16] MEDS: DONEPEZIL 10 MG TABLET PO SCH (20:29)
[2016-11-16] MEDS: ACETAMINOPHEN 325 MG TABLET PO PRN (20:30)
[2016-11-17] MEDS: AMIODARONE INJ 450 MG in DEXTROSE 5% 241 ML IV SCH ×2 (04:46→20:19)
[2016-11-17 05:19] LABS: Basophils % 0.2 % (0.0-0.8); Eosinophils # 0.6 10*3/uL (0.0-0.87); Eosinophils % 6.8 % (0.00-10.9); Hematocrit 38.8 VOL% (42.0-52.0); Hemoglobin 11.6 GM/DL (14.0-18.0); Immature Granulocytes Absolute 0.08 #; Lymphocytes # 1.3 10*3/uL (1.4-4.0); Lymphocytes % 15.2 % (21.2-54.2); Mean Corpuscular HGB Conc 29.9 GM/DL (32-36); Mean Corpuscular Hemoglobin 29 PG (27-34); Mean Platelet Volume 12.4 FL (9.6-12.0); Monocytes # 1.2 10*3/uL (0.11-0.8); Monocytes % 14.3 % (1.7-12.7); NRBC # 0.03 10*3/uL; Neutrophils # 5.1 10*3/uL (1.4-7.4); Neutrophils % 62.5 % (38.7-73.9); Platelet Count 112 T/CUMM (130-400); Red Blood Count 3.96 MC/CUMM (3.8-5.5); Red Cell Distribution Width 15.7 % (9.3-17.3); White Blood Count 8.2 T/CUMM (4-12)
[2016-11-17] MEDS: PIPERACILLIN/TAZOBACTAM 3,375 MG in SODIUM CHLORIDE 0.9% 100 ML IV SCH ×3 (05:40→20:17)
[2016-11-17 05:53] LABS: Calcium 7.8 MG/DL (8.5-10.1); Magnesium 2.4 MG/DL (1.8-2.4); Osmolality,Calculated 310.4 MOS/KG (273-304)
[2016-11-17 05:56] LABS: Albumin 1.9 G/DL (3.4-5.0); Bilirubin,Direct 0.9 MG/DL (0.0-0.20); Bilirubin,Indirect 0.5 MG/DL (0.0-1.0); Bilirubin,Total 1.4 MG/DL (0.2-1.0); Total Protein 5.1 G/DL (6.4-8.3)
[2016-11-17] MEDS: FLUTICASONE/SALMETEROL 250-50 DISKUS 14 DOSE INH SCH ×2 (10:07→20:18)
[2016-11-17] MEDS: ASPIRIN CHEW 81 MG TABLET PO SCH (10:08)
[2016-11-17] MEDS: LANSOPRAZOLE ODT 30 MG TABLET PER TUBE SCH (10:08)
[2016-11-17] MEDS: MEMANTINE 10 MG TABLET PO SCH ×2 (10:15→20:18)
--- NOTE | 2016-11-17 10:17 | Hospitalist Progress Note ---
Assessment and Plan (1) RLL pneumonia Status: Acute Assessment and plan: - Time spent with patient Time spent with patient: Greater than 30 minutes (1) Septic shock Problem details: 11/16/16: Off levophed, but still on IV dopamine. Continue IV antibiotics and IVF. Status: Acute Current Visit: Yes (2) Metabolic encephalopathy Status: Acute Current Visit: Yes (3) HCAP (healthcare-associated pneumonia) Problem details: 11/16/16: Mental status has improved when compared to yesterday. Continue current IV antibiotics treatment regimen. Per Dr. Langston's note on 11/15/16: Worsening leukocytosis. MRSE growth reported in right second toe wound culture 11/12/2016. E. coli growth in 11/12/2016 urine culture. No growth in 11/12/2016 blood cultures. Patient is receiving Levaquin and Zosyn empiric antibiotic therapy. Status: Acute Current Visit: Yes (4) Acute kidney injury superimposed on chronic kidney disease Problem details: Improving BUN and creatinine. Monitor BUN/Cr in am. Status: Acute Current Visit: Yes (5) Elevated LFTs Status: Acute Assessment and plan: Monitor LFT's in am. Current Visit: Yes (6) Dementia Status: Acute Current Visit: Yes (7) Toe ulcer Problem details: Left dorsal second toe distal segment. Wound management strategies reviewed. Status: Chronic Current Visit: Yes (8) Cholelithiasis Problem details: Moderate common bile duct dilatation reported on ultrasound exam (6.5 mm). Gallbladder wall thickening not reported. Low clinical suspicion for acute cholecystitis. Status: Acute Current Visit: Yes Current Visit: Yes Qualifiers: Pneumonia type: due to unspecified organism Qualified Code(s): J18.1 - Lobar pneumonia, unspecified organism (2) Lactic acidosis Status: Acute Current Visit: Yes (3) Metabolic encephalopathy Status: Acute Current Visit: Yes (4) Dementia Status: Chronic Current Visit: Yes Qualifiers: Dementia type: Alzheimer's disease (5) Hyperbilirubinemia Status: Acute Current Visit: Yes (6) Sepsis Status: Acute Current Visit: Yes Qualifiers: Sepsis type: sepsis due to unspecified organism Qualified Code(s): A41.9 - Sepsis, unspecified organism (7) Hypernatremia Status: Acute Current Visit: Yes (8) Ulcer of left second toe Status: Acute Current Visit: Yes Qualifiers: Non-pressure ulcer stage: unspecified non-pressure ulcer stage Qualified Code(s): L97.529 - Non-pressure chronic ulcer of other part of left foot with unspecified severity (9) Acute kidney injury superimposed on chronic kidney disease Problem details: Improving BUN and creatinine. Monitor BUN/Cr in am. Status: Acute Current Visit: Yes Hospitalist: Subjective Interval history: Patient seen and examined. No acute events overnight. Case discussed with nursing staff. Labs reviewed. Patient is improving. He remains on dopamine at 8 mcg per minute. He is awake and alert and responsive. He was pleasant and cooperative. Exam - Constitutional Vitals: Period Temp Pulse Resp BP Sys/Grimm Pulse Ox Last 24 Hr 98.1 F-99.5 F 71-112 11-35 79-130/43-78 91-100 Exam: Constitutional System: No distress. No tremulousness. Head: Normocephalic, atraumatic. Ears, Nose and Throat System: No pain or tenderness. No epistaxis or discharge Eyes System: Pupils equal, round, and reactive. Extraocular muscles intact. Neck: Supple, without adenopathy, No jugular venous distention. No thyromegaly, neck mass, or prior surgery apparent. Respiratory System: Chest rhonchi right lower lobe to auscultation. Cardiovascular System: Heart with regular rate and rhythm. No murmur. GI System: Abdomen soft, nontender. Normo active bowel sounds present. Musculoskeletal System: limbs with no pedal edema. Full distal pulses. Heel protectors on. Bandage to the ulcerated second toe intact. Neurological System: No discernable sensory deficit. No aphasia Psychiatric System: Conversation is rational. Patient is hard of hearing. Results - Labs CBC & BMP: 11/17/16 04:10 11/17/16 04:15 Lab Results: I have reviewed the past 24 hour labs - Diagnostic Findings Procedure: Chest x-ray: image reviewed by me, report reviewed by me
--- NOTE | 2016-11-17 10:24 | Gastrointestinal Progress Note ---
<Ada Chavez Janis - Last Filed: 11/17/16 10:17> Assessment and Plan (1) Elevated LFTs Status: Acute Assessment and plan: 11/17-LFTs are trending down slowly at this time. No complaints of abdominal pain. NG tube is in place to start tube feedings following dietitian consult. Afebrile. Continue to monitor present time. Plan an addendum to follow by Dr. Tavarez. 11/14-no repeat LFTs today. Continued fever and elevation in WBCs noted. Gram- negative rods on preliminary UA. No complaints of pain. Recheck LFTs today continue to monitor at present time. Plan an addendum to follow by Dr. Tavarez. 11/13-One day history of changes in mental status from baseline, admitted with findings of sepsis, pneumonia and elevated LFT and cholelithiasis with dilated CBD on US. Febrile with gram positive cocci on preliminary wound culture. Currently on pressor support. Plan and addendum to follow by Dr Tavarez. Current Visit: Yes Gastroenterology - PN: Subj Interval history: CC: Elevated LFTs Patient is seen, more awake and alert sitting up in bed. He is denying abdominal pain, nausea or vomiting at this time. States he is resting comfortably. He is noted to be off Levophed however continues on dopamine at this time. An NG tube has been placed at this time so that patient can start tube feedings. Appears they are currently waiting dietitian consultation prior to starting these. Abdomen is soft, nontender. Patient's bilirubin is noted to be trending downward at 1.4 with transaminases trending downward as well. His leukocytosis is improved with WBCs 8000. ROS: Denies shortness of breath or chest pain Exam (Progress Note) - Constitutional Vitals: Period Temp Pulse Resp BP Sys/Grimm Pulse Ox Last 24 Hr 98.1 F-99.5 F 71-112 11-35 79-130/43-78 91-100 General appearance: no acute distress, under weight - Head Head exam: Present: normal inspection, normocephalic - Eye Eye exam: Present: other (Lids and conjunctivae are unremarkable). Absent: scleral icterus - ENT ENT exam: Present: normal exam, normal oropharynx - Neck Neck exam: Present: normal inspection - Respiratory Respiratory exam: Present: clear to auscultation bilaterally. Absent: rales, rhonchi, wheezes - Cardiovascular Cardiovascular exam: Present: regular rate and rhythm. Absent: diastolic murmur , JVD, systolic murmur - GI/Abdominal GI/Abdominal exam: Present: normal bowel sounds, soft. Absent: ascites, distended, mass, organomegaly, tenderness - Extremities Exam Extremities exam: Present: normal inspection, full ROM - Back Exam Back exam: Present: normal inspection - Neurological Exam Neurological exam: Present: alert, oriented X3 - Psychiatric Psychiatric exam: Present: normal affect, normal mood - Skin Skin exam: Present: normal color, warm, dry Results - Labs CBC & BMP: 11/17/16 04:10 11/17/16 04:15 Lab Results: I have reviewed the past 24 hour labs <Michelet Tavarez - Last Filed: 11/17/16 18:00> Exam (Progress Note) - Constitutional Vitals: Period Temp Pulse Resp BP Sys/Grimm Pulse Ox Last 24 Hr 98.1 F-98.9 F 71-103 11-25 76-157/39-139 91-100 Results - Labs CBC & BMP: 11/17/16 04:10 11/17/16 04:15
--- NOTE | 2016-11-17 10:56 | Infectious Disease Consult ---
Assessment and Plan (1) Acute kidney injury superimposed on chronic kidney disease Problem details: Improving BUN and creatinine. Monitor BUN/Cr in am. Status: Acute Assessment and plan: Acute on chronic renal insufficiency likely due to hypotension. Renal function improved since admission. Current Visit: Yes (2) Altered mental status Status: Acute Current Visit: Yes (3) Dementia Status: Acute Current Visit: Yes (4) RLL pneumonia Status: Acute Assessment and plan: Healthcare associated pneumonia involving right lower lobe. X-ray reports improving infiltrate on current antibiotics, that is Zosyn and levofloxacin. Plan is to continue current therapy. Current Visit: Yes Qualifiers: Pneumonia type: due to unspecified organism Qualified Code(s): J18.1 - Lobar pneumonia, unspecified organism (5) Toe ulcer Problem details: Left dorsal second toe distal segment. Wound management strategies reviewed. Status: Chronic Assessment and plan: At least stage III ulcer to right second toe. MRSE cultured which may or may not be a colonizer. Patient may have underlying peripheral vascular disease. Recommendations: Local wound care is most important. Patient is on levofloxacin for the pneumonia and this will cover the MRSE as well. Current Visit: Yes (6) Bacteriuria Status: Acute Assessment and plan: 2000 CFU's of E. coli with a negative urinalysis. This is asymptomatic bacteriuria. Treatment is not indicated. Current Visit: Yes (7) Hypotension Status: Acute Assessment and plan: Patient has persisting hypotension on vasopressors. Not sure if cardiogenic, hypovolemic or septic. Patient's blood cultures have been negative, fever and leukocytosis have resolved, so doubt sepsis as a cause. We will continue to monitor closely and follow blood cultures on the finalized. Current Visit: Yes History of Present Illness Chief complaint: Positive urine culture, positive wound culture History of present illness: History obtained from review of records as patient is confused. Mr. Jensen is a 81 year old male with dementia who resides in a residential. He was admitted to hospital 5 days ago after he was found slumped over in his wheelchair. He is noted to be febrile on and off since admission and is required vasopressor support due to persistent hypotension. Patient was found to have an ulcer over the dorsum of the right second toe and it was cultured and came up positive for MRSE. Urine cultures on admission also positive. I am asked to assist with management. Home Medications Medication Instructions Recorded Confirmed Type Acetaminophen 650 mg PO Q4H PRN 11/12/16 11/12/16 History Albuterol Sulfate [Proair Hfa] 2 puffs INH Q4H PRN 11/12/16 11/12/16 History Aspirin EC Tab 81 mg PO DAILY 11/12/16 11/12/16 History Dextromethorph/Quinidine 20-10 1 capsule PO BID 11/12/16 11/12/16 History [Nuedexta] Digoxin Tab [Lanoxin Tab] 0.125 mg PO 1200 11/12/16 11/12/16 History Donepezil HCl [Donepezil HCl] 10 mg PO BEDTIME 11/12/16 11/12/16 History Ferrous Sulfate 325 mg PO BID 11/12/16 11/12/16 History Fluticasone/Salmeterol 250-50 2 puff INH BID 11/12/16 11/12/16 History [Advair 250-50] Furosemide [Furosemide] 80 mg PO BID 11/12/16 11/12/16 History HydrOXYzine PAMOATE CAP [Vistaril 50 mg PO Q1H PRN 11/12/16 11/12/16 History Cap] Magnesium Hydroxide Susp [Milk of 30 ml PO DAILY 11/12/16 11/12/16 History Magnesia] Memantine HCl [Namenda XR] 28 mg PO BEDTIME 11/12/16 11/12/16 History Metoprolol Tartrate Tab [Lopressor 12.5 mg PO BID 11/12/16 11/12/16 History Tab] Multivit-Min/FA/Lycopen/Lutein 1 each PO DAILY 11/12/16 11/12/16 History [Centrum Silver Tablet] Nitroglycerin [Nitro-Bid 2% Oint] 1 applic TOP 0800,1400 11/12/16 11/12/16 History Omeprazole 20 mg PO DAILY 11/12/16 11/12/16 History Sacubitril/Valsartan [Entresto 49 1 tablet PO BID 11/12/16 11/12/16 History mg-51 mg Tablet] Simvastatin [Simvastatin] 10 mg PO BEDTIME 11/12/16 11/12/16 History Warfarin Sodium [Warfarin Sodium] 3 mg PO SUTUTHSA 11/12/16 11/12/16 History Warfarin Sodium [Warfarin Sodium] 4 mg PO MOWEFR 11/12/16 11/12/16 History Allergies Allergy/AdvReac Type Severity Reaction Status Date / Time No Known Allergies Allergy Verified 11/03/16 09:39 ROS unobtainable: due to mental status Medical,Surgical,& Family Hx - Medical History Cardio: History of: Cardiac Dysrhythmia (A. Fib), CHF, CAD, Hypertension, CT Neurology: History of: Cerebrovascular Accident, Dementia HEENT: History of: Dental Problems (Missing uppers and lowers), Glaucoma Endocrine: History of: Dyslipidemia No history of: Diabetes Mellitus (IDDM), Diabetes Mellitus (NIDDM), Thyroid Disorder Respiratory: History of: COPD, Pulmonary Embolism Renal: History of: Renal Failure - Surgical History HEENT Surgeries: Patient denies: Tonsilectomy & Adenoidectomy Abdominal Surgeries: Patient denies: Appendectomy, Cholecystectomy - Social History Smoking Status: Unknown if ever smoked Frequency of Alcohol Use: Unknown Type of Drug Use: Unknown Infectious Disease Exam H&P - Constitutional Vitals: Vital Signs Temp Pulse Resp BP Pulse Ox 98.1 F 92 H 17 99/61 96 11/17/16 08:00 11/17/16 09:00 11/17/16 09:00 11/17/16 09:00 11/17/16 09:00 Intake and Output 11/16/16 11/17/16 11/17/16 23:59 07:59 15:59 Intake Total 288 / 288 100 / 100 240 / 240 Output Total 685 / 685 470 / 470 110 / 110 Balance -397 / -397 -370 / -370 130 / 130 Intake: IV 288 / 288 100 / 100 DOPamine 800 MG/250 ML800 138 / 138 mg In 250 ml @ 5 MCG/KG/ MIN 4.676 mls/hr IV TITRATE CARL[facility] Rx#: [id number] Levaquin Inj 250 mg In 50 / 50 Premix 1 Each @ 100 mls/ hr IV Q24H CARLOS Rx#: [id number] Zosyn 3,375 mg In Ns 100 100 / 100 100 / 100 ml @ 25 mls/hr IV Q8H CARLOS Rx#:[id number] Oral 240 / 240 Output: Urine 585 / 585 470 / 470 110 / 110 Stool 100 / 100 Other: Tube Feeding 200 200 200 Voiding Method Indwelling Catheter Indwelling Catheter # Bowel Movements 0 0 Weight 54.476 kg Patient Weight 11/17/16 23:59 Weight 54.476 kg Exam: General: Patient chronically ill looking, arousable and says a few words, he is quite thin HEENT: Mucous membranes pink and moist, anicteric acyanotic, ROHINI, no oral exudates but mouth very dry Neck: Supple, no thyroid gland enlargement Respiratory system: Breath sounds vesicular, no crepitations or wheezes Cardiovascular: Normal S1 and S2, no murmurs appreciated Abdomen: Normal bowel sounds, soft nontender throughout, no organomegaly or mass Genitourinary: No suprapubic pain or bladder distention, clear urine from [place] catheter Extremities: no edema, also noted to dorsum of right second toe with serous drainage, that toe is diffusely hyperpigmented Skin: No rash Reports - Labs CBC & BMP: 11/17/16 04:10 11/17/16 04:15 Labs: Laboratory Results - last 24 hr 11/17/16 11/17/16 11/17/16 04:10 04:15 04:15 WBC 8.2 D RBC 3.96 Hgb 11.6 L Hct 38.8 L MCV 98.0 MCH 29 MCHC 29.9 L RDW 15.7 Plt Count 112 L MPV 12.4 H Neut % (Auto) 62.5 Lymph % (Auto) 15.2 L Grimes % (Auto) 14.3 H Eos % (Auto) 6.8 Baso % (Auto) 0.2 Neut # (Auto) 5.1 Lymph # (Auto) 1.3 L Grimes # (Auto) 1.2 H Eos # (Auto) 0.6 Baso # (Auto) 0.0 Immature Gran % 1.0 Nucleated RBC % 0.4 Immature Gran # 0.08 Nucleated RBCs # 0.03 Sodium 154 H Potassium 4.0 Chloride 119 H Carbon Dioxide 29 Anion Gap 10.0 BUN 32 H Creatinine 1.20 GFR Calculation 60 BUN/Creatinine Ratio 26.00 H Glucose 79 Calculated Osmolality 310.4 H Calcium 7.8 L Magnesium 2.4 Total Bilirubin 1.40 H Direct Bilirubin 0.90 H Indirect Bilirubin 0.5 AST 42 H ALT 31 Alkaline Phosphatase 118 H Total Protein 5.1 L Albumin 1.9 L - Diagnostic Findings Procedure: Chest x-ray: image reviewed by me, report reviewed by me (Small infiltrate in right lung base)
[2016-11-17] MEDS: LEVOFLOXACIN INJ 250 MG in PREMIX 1 EACH IV SCH (17:42)
[2016-11-17] MEDS: SODIUM CHLORIDE 0.9% 1,000 ML IV SCH (18:00)
[2016-11-17] MEDS: NOREPINEPHRINE 16 MG in SODIUM CHLORIDE 0.9% 234 ML IV SCH (19:46)
[2016-11-17] MEDS: DONEPEZIL 10 MG TABLET PO SCH (20:18)
[2016-11-17] MEDS: SIMVASTATIN 10 MG TABLET PO SCH (20:18)
[2016-11-18] MEDS: DOPamine 800 MG/250 ML PREMIX IV SCH ×2 (05:37→21:11)
[2016-11-18] MEDS: PIPERACILLIN/TAZOBACTAM 3,375 MG in SODIUM CHLORIDE 0.9% 100 ML IV SCH ×3 (06:12→21:03)
[2016-11-18 06:13] LABS: Albumin 1.9 G/DL (3.4-5.0); Calcium 7.6 MG/DL (8.5-10.1); Osmolality,Calculated 309.6 MOS/KG (273-304); Potassium 3.9 MMOL/L (3.5-5.1)
[2016-11-18 06:15] LABS: Magnesium 2.5 MG/DL (1.8-2.4); Phosphorous 2.1 MG/DL (2.5-4.9); Prealbumin 7.2 MG/DL (20-40)
[2016-11-18 06:51] LABS: Basophils % 0.4 % (0.0-0.8); Eosinophils # 0.5 10*3/uL (0.0-0.87); Eosinophils % 6.6 % (0.00-10.9); Hematocrit 36.9 VOL% (42.0-52.0); Hemoglobin 10.9 GM/DL (14.0-18.0); Immature Granulocytes Absolute 0.08 #; Lymphocytes # 1.2 10*3/uL (1.4-4.0); Mean Corpuscular HGB Conc 29.5 GM/DL (32-36); Mean Corpuscular Hemoglobin 29 PG (27-34); Mean Corpuscular Volume 97.9 FL (87-102); Mean Platelet Volume 12.7 FL (9.6-12.0); Monocytes # 1.3 10*3/uL (0.11-0.8); Monocytes % 15.6 % (1.7-12.7); NRBC # 0.02 10*3/uL; Neutrophils # 5.1 10*3/uL (1.4-7.4); Neutrophils % 62.4 % (38.7-73.9); Platelet Count 123 T/CUMM (130-400); Red Blood Count 3.77 MC/CUMM (3.8-5.5); Red Cell Distribution Width 15.8 % (9.3-17.3); White Blood Count 8.2 T/CUMM (4-12)
[2016-11-18 07:17] LABS: Band Neutrophils 1 % (0-10); Eosinophils 4 % (0-10); Hypochromasia 1+; Lymphocytes 13 % (20-55); Platelet Estimate Adequate; Segmented Neutrophils 69 % (50-85); Total Cells Counted 100
--- NOTE | 2016-11-18 09:59 | Gastrointestinal Progress Note ---
<Ada Chavez Janis - Last Filed: 11/18/16 09:56> Assessment and Plan (1) Elevated LFTs Status: Acute Assessment and plan: 11/18-LFTs essentially unchanged with bilirubin trending down slightly at 1.0. Tolerating tube feedings at present time. Continue to monitor. Plan addendum follow Dr. Tavarez 11/17-LFTs are trending down slowly at this time. No complaints of abdominal pain. NG tube is in place to start tube feedings following dietitian consult. Afebrile. Continue to monitor present time. Plan an addendum to follow by Dr. Tavarez. 11/14-no repeat LFTs today. Continued fever and elevation in WBCs noted. Gram- negative rods on preliminary UA. No complaints of pain. Recheck LFTs today continue to monitor at present time. Plan an addendum to follow by Dr. Tavarez. 11/13-One day history of changes in mental status from baseline, admitted with findings of sepsis, pneumonia and elevated LFT and cholelithiasis with dilated CBD on US. Febrile with gram positive cocci on preliminary wound culture. Currently on pressor support. Plan and addendum to follow by Dr Tavarez. Current Visit: Yes Gastroenterology - PN: Subj Interval history: CC: Elevated LFTs Patient is seen, awake and alert receiving his morning routine care by nursing staff. He is denying any pain at present time. He has had tube feedings initiated he is tolerating these well. BMS system noted to be in place with dark brown runny stool. Abdomen is soft, nontender. LFTs with mild changes at present time however bilirubin is down at 1.0. ROS: Denies shortness of breath or chest pain Exam (Progress Note) - Constitutional Vitals: Period Temp Pulse Resp BP Sys/Grimm Pulse Ox Last 24 Hr 98.0 F-98.7 F 65-115 11-25 76-119/39-85 88-100 General appearance: normal weight, no acute distress - Head Head exam: Present: normal inspection, normocephalic - Eye Eye exam: Present: other (Lids and conjunctive are unremarkable). Absent: scleral icterus - ENT ENT exam: Present: normal exam, normal oropharynx - Neck Neck exam: Present: normal inspection - Respiratory Respiratory exam: Present: clear to auscultation bilaterally. Absent: rales, rhonchi, wheezes - Cardiovascular Cardiovascular exam: Present: regular rate and rhythm. Absent: diastolic murmur , JVD, systolic murmur - GI/Abdominal GI/Abdominal exam: Present: normal bowel sounds, soft. Absent: ascites, distended, mass, organomegaly, tenderness - Extremities Exam Extremities exam: Present: normal inspection, full ROM - Back Exam Back exam: Present: normal inspection - Neurological Exam Neurological exam: Present: alert, oriented X3 - Psychiatric Psychiatric exam: Present: normal affect, normal mood - Skin Skin exam: Present: normal color, warm, dry Results - Labs CBC & BMP: 11/18/16 04:10 11/18/16 04:10 Lab Results: I have reviewed the past 24 hour labs <Michelet Tavarez - Last Filed: 11/18/16 11:34> Exam (Progress Note) - Constitutional Vitals: Period Temp Pulse Resp BP Sys/Grimm Pulse Ox Last 24 Hr 98.0 F-98.7 F 65-115 11-25 79-119/43-85 88-100 Results - Labs CBC & BMP: 11/18/16 04:10 11/18/16 04:10
[2016-11-18] MEDS: LANSOPRAZOLE ODT 30 MG TABLET PER TUBE SCH (10:22)
[2016-11-18] MEDS: ASPIRIN CHEW 81 MG TABLET PO SCH (10:22)
[2016-11-18] MEDS: MEMANTINE 10 MG TABLET PO SCH ×2 (10:23→21:02)
[2016-11-18] MEDS: FLUTICASONE/SALMETEROL 250-50 DISKUS 14 DOSE INH SCH ×2 (10:24→21:11)
[2016-11-18] MEDS: WARFARIN 3 MG TABLET PO SCH (10:50)
[2016-11-18] MEDS: SODIUM CHLORIDE 0.45% 1,000 ML IV SCH (10:58)
[2016-11-18] MEDS: LEVOFLOXACIN INJ 500 MG in PREMIX 1 EACH IV SCH (11:04)
--- NOTE | 2016-11-18 14:03 | Hospitalist Progress Note ---
Assessment and Plan (1) RLL pneumonia Status: Acute Assessment and plan: - Time spent with patient Time spent with patient: Greater than 30 minutes (1) Septic shock Problem details: 11/16/16: Off levophed, but still on IV dopamine. Continue IV antibiotics and IVF. Dopamine dose reduced to 2 mcg/min. Continue to wean until off Status: Acute Current Visit: Yes (2) Metabolic encephalopathy resolved Status: Acute Current Visit: Yes (3) HCAP (healthcare-associated pneumonia) Problem details: 11/16/16: Mental status has improved when compared to yesterday. Continue current IV antibiotics treatment regimen. Per Dr. Langston's note on 11/15/16: Worsening leukocytosis. MRSE growth reported in right second toe wound culture 11/12/2016. E. coli growth in 11/12/2016 urine culture. No growth in 11/12/2016 blood cultures. Patient is receiving Levaquin and Zosyn empiric antibiotic therapy. Repeat chest x-ray to evaluate right lower lobe pneumonia Status: Acute Current Visit: Yes (4) Acute kidney injury superimposed on chronic kidney disease Problem details: Improving BUN and creatinine. Monitor BUN/Cr in am. Status: Acute Current Visit: Yes (5) Elevated LFTs Status: Acute Assessment and plan: Monitor LFT's in am. Bilirubin is improving. Hold Zocor. Current Visit: Yes (6) Dementia Status: Acute Current Visit: Yes (7) Toe ulcer Problem details: Left dorsal second toe distal segment. Wound management strategies reviewed. Status: Chronic Current Visit: Yes (8) Cholelithiasis Problem details: Moderate common bile duct dilatation reported on ultrasound exam (6.5 mm). Gallbladder wall thickening not reported. Low clinical suspicion for acute cholecystitis. Status: Acute Current Visit: Yes Current Visit: Yes Qualifiers: Pneumonia type: due to unspecified organism Qualified Code(s): J18.1 - Lobar pneumonia, unspecified organism (2) Lactic acidosis Status: Acute Current Visit: Yes (3) Metabolic encephalopathy Status: Acute Current Visit: Yes (4) Dementia Status: Chronic Current Visit: Yes Qualifiers: Dementia type: Alzheimer's disease (5) Hyperbilirubinemia Status: Acute Current Visit: Yes (6) Sepsis Status: Acute Current Visit: Yes Qualifiers: Sepsis type: sepsis due to unspecified organism Qualified Code(s): A41.9 - Sepsis, unspecified organism (7) Hypernatremia Status: Acute Current Visit: Yes (8) Ulcer of left second toe Status: Acute Current Visit: Yes Qualifiers: Non-pressure ulcer stage: unspecified non-pressure ulcer stage Qualified Code(s): L97.529 - Non-pressure chronic ulcer of other part of left foot with unspecified severity (9) Acute kidney injury superimposed on chronic kidney disease Problem details: Improving BUN and creatinine. Monitor BUN/Cr in am. Status: Acute Current Visit: Yes Hospitalist: Subjective Interval history: Patient seen and examined. No acute events overnight. Case discussed with nursing staff. Labs reviewed. Patient continues to improve. Case discussed with Dr. Fierro on rounds Exam - Constitutional Vitals: Period Temp Pulse Resp BP Sys/Grimm Pulse Ox Last 24 Hr 98.0 F-98.7 F 65-103 11-24 79-119/36-85 88-100 Exam: Constitutional System: No distress. No tremulousness. Head: Normocephalic, atraumatic. Ears, Nose and Throat System: No pain or tenderness. No epistaxis or discharge Eyes System: Pupils equal, round, and reactive. Extraocular muscles intact. Neck: Supple, without adenopathy, No jugular venous distention. No thyromegaly, neck mass, or prior surgery apparent. Respiratory System: Chest rhonchi right lower lobe to auscultation. Cardiovascular System: Irregular rate and rhythm. GI System: Abdomen soft, nontender. Normo active bowel sounds present. Musculoskeletal System: limbs with no pedal edema. Full distal pulses. Heel protectors on. Bandage to the ulcerated second toe intact. Neurological System: No discernable sensory deficit. No aphasia Psychiatric System: Conversation is rational. Patient is hard of hearing. Results - Labs CBC & BMP: 11/18/16 04:10 11/18/16 04:10 Lab Results: I have reviewed the past 24 hour labs - Diagnostic Findings Procedure: Chest x-ray: image reviewed by me, report reviewed by me
[2016-11-18] MEDS: DIGOXIN 0.125 MG TABLET PO SCH (15:22)
--- NOTE | 2016-11-18 16:44 | Infectious Disease Progress ---
Assessment and Plan (1) Acute kidney injury superimposed on chronic kidney disease Problem details: Improving BUN and creatinine. Monitor BUN/Cr in am. Status: Acute Assessment and plan: Acute on chronic renal insufficiency likely due to hypotension. Renal function improved since admission. Current Visit: Yes (2) Altered mental status Status: Acute Current Visit: Yes (3) Dementia Status: Acute Current Visit: Yes (4) RLL pneumonia Status: Acute Assessment and plan: Healthcare associated pneumonia involving right lower lobe. X-ray reports improving infiltrate on current antibiotics, that is Zosyn and levofloxacin. Plan is to continue current therapy for total of about 7 days. Current Visit: Yes Qualifiers: Pneumonia type: due to unspecified organism Qualified Code(s): J18.1 - Lobar pneumonia, unspecified organism (5) Toe ulcer Problem details: Left dorsal second toe distal segment. Wound management strategies reviewed. Status: Chronic Assessment and plan: At least stage III ulcer to right second toe. MRSE cultured which may or may not be a colonizer. Patient may have underlying peripheral vascular disease. Recommendations: Continue local wound care Current Visit: Yes (6) Bacteriuria Status: Acute Assessment and plan: 2000 CFU's of E. coli with a negative urinalysis. This is asymptomatic bacteriuria. Treatment is not indicated. Current Visit: Yes (7) Hypotension Status: Acute Assessment and plan: Hypertension better today patient almost off pressors. We will continue to monitor closely and follow blood cultures on the finalized. Current Visit: Yes Infectious Disease - PN: Subj Interval history: Patient was seen this morning, no acute events over the past 24 hours. No fever. He indicates that he is feeling fine. Infectious Disease Exam (PN) - Constitutional Vitals: Temp Pulse Resp BP Pulse Ox 98.1 F 87 16 114/73 93 L 11/18/16 15:00 11/18/16 15:22 11/18/16 16:00 11/18/16 15:15 11/18/16 15:15 General appearance: normal weight, no acute distress Exam: General appearance: no acute distress - Eye Eye exam: Present: EOMI. no icterus Pupils: Present: ROHINI - ENT ENT exam: no oral exudates - Respiratory Respiratory exam: vesicular BS, no crepitations or wheezes - Cardiovascular Cardiovascular exam: regular rate and rhythm, no murmurs - GI/Abdominal GI/Abdominal exam: normal bowel sounds, soft, non-tender, no organomegaly or mass - Extremities Exam Extremities exam: no edema - Skin Skin exam: no rash Results - Labs CBC & BMP: 11/18/16 04:10 11/18/16 04:10 Lab Results: I have reviewed the past 24 hour labs (Stool 3 negative for C. difficile)
[2016-11-18] MEDS: DONEPEZIL 10 MG TABLET PO SCH (21:02)
[2016-11-18] MEDS: FERROUS SULFATE 325 MG TABLET PO SCH (21:02)
[2016-11-19 04:46] LABS: Basophils % 0.2 % (0.0-0.8); Eosinophils # 0.5 10*3/uL (0.0-0.87); Eosinophils % 4.4 % (0.00-10.9); Hematocrit 32.3 VOL% (42.0-52.0); Immature Granulocytes % 1.2 %; Immature Granulocytes Absolute 0.13 #; Lymphocytes # 1.3 10*3/uL (1.4-4.0); Lymphocytes % 12.8 % (21.2-54.2); Mean Corpuscular Hemoglobin 30 PG (27-34); Mean Corpuscular Volume 95.6 FL (87-102); Mean Platelet Volume 12.3 FL (9.6-12.0); Monocytes # 1.2 10*3/uL (0.11-0.8); Monocytes % 11.8 % (1.7-12.7); Neutrophils # 7.3 10*3/uL (1.4-7.4); Neutrophils % 69.6 % (38.7-73.9); Platelet Count 163 T/CUMM (130-400); Red Blood Count 3.38 MC/CUMM (3.8-5.5); Red Cell Distribution Width 15.5 % (9.3-17.3); White Blood Count 10.4 T/CUMM (4-12)
[2016-11-19 04:58] LABS: Calcium 7.6 MG/DL (8.5-10.1); Magnesium 2.4 MG/DL (1.8-2.4); Osmolality,Calculated 301.3 MOS/KG (273-304)
[2016-11-19 05:24] LABS: Hypochromasia 1+
[2016-11-19 05:26] LABS: Ovalocytes Slight
[2016-11-19 05:27] LABS: Microcytosis Slight; Platelet Estimate Adequate
[2016-11-19] MEDS: PIPERACILLIN/TAZOBACTAM 3,375 MG in SODIUM CHLORIDE 0.9% 100 ML IV SCH ×3 (05:45→21:31)
[2016-11-19] MEDS: DOPamine 800 MG/250 ML PREMIX IV SCH ×2 (06:18→16:54)
[2016-11-19] MEDS: FERROUS SULFATE 325 MG TABLET PO SCH ×2 (09:25→21:30)
[2016-11-19] MEDS: ASPIRIN CHEW 81 MG TABLET PO SCH (09:25)
[2016-11-19] MEDS: MEMANTINE 10 MG TABLET PO SCH ×2 (09:25→21:30)
[2016-11-19] MEDS: LANSOPRAZOLE ODT 30 MG TABLET PER TUBE SCH (09:26)
[2016-11-19] MEDS: LEVOFLOXACIN INJ 500 MG in PREMIX 1 EACH IV SCH (09:33)
[2016-11-19] MEDS: FLUTICASONE/SALMETEROL 250-50 DISKUS 14 DOSE INH SCH ×2 (09:34→21:31)
[2016-11-19] MEDS ORDERED: SODIUM CHLORIDE 0.9% 500 ML IV ONE (10:00)
--- NOTE | 2016-11-19 11:21 | Infectious Disease Progress ---
Assessment and Plan (1) Acute kidney injury superimposed on chronic kidney disease Problem details: Improving BUN and creatinine. Monitor BUN/Cr in am. Status: Acute Assessment and plan: Acute on chronic renal insufficiency likely due to hypotension. Renal function improved since admission. Current Visit: Yes (2) Altered mental status Status: Acute Current Visit: Yes (3) Dementia Status: Acute Current Visit: Yes (4) RLL pneumonia Status: Acute Assessment and plan: Healthcare associated pneumonia involving right lower lobe with improving infiltrate on current antibiotics, that is Zosyn and levofloxacin. Plan is to continue current therapy for total of about 7 days. Current Visit: Yes Qualifiers: Pneumonia type: due to unspecified organism Qualified Code(s): J18.1 - Lobar pneumonia, unspecified organism (5) Toe ulcer Problem details: Left dorsal second toe distal segment. Wound management strategies reviewed. Status: Chronic Assessment and plan: At least stage III ulcer to right second toe. MRSE cultured which may or may not be a colonizer. Patient may have underlying peripheral vascular disease. Recommendations: Continue local wound care Current Visit: Yes (6) Bacteriuria Status: Acute Assessment and plan: 2000 CFU's of E. coli with a negative urinalysis. This is asymptomatic bacteriuria. Treatment is not indicated. Current Visit: Yes (7) Hypotension Status: Acute Assessment and plan: Hypotension better, patient still on a little dopamine. Blood cultures came back negative. Current Visit: Yes Infectious Disease - PN: Subj Interval history: Patient more lethargic today, no fever. Infectious Disease Exam (PN) - Constitutional Vitals: Temp Pulse Resp BP Pulse Ox 98 F 92 H 15 92/48 96 11/19/16 08:00 11/19/16 10:15 11/19/16 10:00 11/19/16 10:15 11/19/16 10:00 General appearance: normal weight, no acute distress Exam: General appearance: Lethargic, barely opens eyes with stimulation - Eye Eye exam: Present: EOMI. no icterus Pupils: Present: ROHINI - Respiratory Respiratory exam: vesicular BS, no crepitations or wheezes - Cardiovascular Cardiovascular exam: regular rate and rhythm, no murmurs - GI/Abdominal GI/Abdominal exam: normal bowel sounds, soft, non-tender, no organomegaly or mass - Extremities Exam Extremities exam: no edema, clean ulcer to right second toe - Skin Skin exam: no rash Results - Labs CBC & BMP: 11/19/16 04:00 11/19/16 04:00 Lab Results: I have reviewed the past 24 hour labs
--- NOTE | 2016-11-19 12:16 | Hospitalist Progress Note ---
Assessment and Plan (1) RLL pneumonia Status: Acute Assessment and plan: - Time spent with patient Time spent with patient: Greater than 30 minutes (1) Septic shock Problem details: 11/16/16: Off levophed, but still on IV dopamine. Continue IV antibiotics and IVF. Dopamine dose reduced to 2 mcg/min. Continue to wean until off Status: Acute Current Visit: Yes (2) Metabolic encephalopathy resolved Status: Acute Current Visit: Yes (3) HCAP (healthcare-associated pneumonia) Problem details: 11/16/16: Mental status has improved when compared to yesterday. Continue current IV antibiotics treatment regimen. Per Dr. Lagnston's note on 11/15/16: Worsening leukocytosis. MRSE growth reported in right second toe wound culture 11/12/2016. E. coli growth in 11/12/2016 urine culture. No growth in 11/12/2016 blood cultures. Patient is receiving Levaquin and Zosyn empiric antibiotic therapy. Repeat chest x-ray to evaluate right lower lobe pneumonia Status: Acute Current Visit: Yes (4) Acute kidney injury superimposed on chronic kidney disease Problem details: Improving BUN and creatinine. Monitor BUN/Cr in am. Status: Acute Current Visit: Yes (5) Elevated LFTs Status: Acute Assessment and plan: Monitor LFT's in am. Bilirubin is improving. Hold Zocor. Current Visit: Yes (6) Dementia Status: Acute Current Visit: Yes (7) Toe ulcer Problem details: Left dorsal second toe distal segment. Wound management strategies reviewed. Status: Chronic Current Visit: Yes (8) Cholelithiasis Problem details: Moderate common bile duct dilatation reported on ultrasound exam (6.5 mm). Gallbladder wall thickening not reported. Low clinical suspicion for acute cholecystitis. Status: Acute Current Visit: Yes Current Visit: Yes Qualifiers: Pneumonia type: due to unspecified organism Qualified Code(s): J18.1 - Lobar pneumonia, unspecified organism (2) Lactic acidosis Status: Resolved Current Visit: Yes (3) Metabolic encephalopathy Status: Resolved Current Visit: Yes (4) Dementia Status: Chronic Current Visit: Yes Qualifiers: Dementia type: Alzheimer's disease (5) Hyperbilirubinemia Status: Resolved Current Visit: Yes (6) Sepsis Status: Resolved Current Visit: Yes Qualifiers: Sepsis type: sepsis due to unspecified organism Qualified Code(s): A41.9 - Sepsis, unspecified organism (7) Hypernatremia Status: Resolved Current Visit: Yes (8) Ulcer of left second toe Status: Chronic Current Visit: Yes Qualifiers: Non-pressure ulcer stage: unspecified non-pressure ulcer stage Qualified Code(s): L97.529 - Non-pressure chronic ulcer of other part of left foot with unspecified severity (9) Acute kidney injury superimposed on chronic kidney disease Problem details: Improving BUN and creatinine. Monitor BUN/Cr in am. Status: Resolved Current Visit: Yes Hospitalist: Subjective Interval history: Patient seen and examined. No acute events overnight. Case discussed with nursing staff. Labs reviewed. Remains on low-dose dopamine Exam - Constitutional Vitals: Period Temp Pulse Resp BP Sys/Grimm Pulse Ox Last 24 Hr 97.8 F-99.3 F 77-96 12-28 75-119/32-78 89-100 Exam: Constitutional System: No distress. No tremulousness. Head: Normocephalic, atraumatic. Ears, Nose and Throat System: No pain or tenderness. No epistaxis or discharge Eyes System: Pupils equal, round, and reactive. Extraocular muscles intact. Neck: Supple, without adenopathy, No jugular venous distention. No thyromegaly, neck mass, or prior surgery apparent. Respiratory System: Chest rhonchi right lower lobe to auscultation. Cardiovascular System: Irregular rate and rhythm. GI System: Abdomen soft, nontender. Normo active bowel sounds present. Musculoskeletal System: limbs with no pedal edema. Full distal pulses. Heel protectors on. Bandage to the ulcerated second toe intact. Neurological System: No discernable sensory deficit. No aphasia Psychiatric System: Patient is hard of hearing. Results - Labs CBC & BMP: 11/19/16 04:00 11/19/16 04:00 Lab Results: I have reviewed the past 24 hour labs
[2016-11-19] MEDS: SODIUM CHLORIDE 0.45% 1,000 ML IV SCH (12:40)
[2016-11-19] MEDS: DIGOXIN 0.125 MG TABLET PO SCH (13:41)
[2016-11-19] MEDS: DONEPEZIL 10 MG TABLET PO SCH (21:30)
[2016-11-20 05:15] LABS: Basophils % 0.2 % (0.0-0.8); Eosinophils # 0.3 10*3/uL (0.0-0.87); Eosinophils % 2.4 % (0.00-10.9); Hematocrit 30.5 VOL% (42.0-52.0); Hemoglobin 9.4 GM/DL (14.0-18.0); Immature Granulocytes % 1.5 %; Immature Granulocytes Absolute 0.19 #; Lymphocytes # 1.4 10*3/uL (1.4-4.0); Lymphocytes % 10.9 % (21.2-54.2); Mean Corpuscular HGB Conc 30.8 GM/DL (32-36); Mean Corpuscular Hemoglobin 30 PG (27-34); Mean Corpuscular Volume 95.6 FL (87-102); Mean Platelet Volume 11.2 FL (9.6-12.0); Monocytes # 1.1 10*3/uL (0.11-0.8); Monocytes % 9.1 % (1.7-12.7); Neutrophils # 9.5 10*3/uL (1.4-7.4); Neutrophils % 75.9 % (38.7-73.9); Platelet Count 196 T/CUMM (130-400); Red Blood Count 3.19 MC/CUMM (3.8-5.5); Red Cell Distribution Width 15.3 % (9.3-17.3); White Blood Count 12.5 T/CUMM (4-12)
[2016-11-20 05:52] LABS: Calcium 7.6 MG/DL (8.5-10.1); Magnesium 2.5 MG/DL (1.8-2.4); Osmolality,Calculated 294.8 MOS/KG (273-304); Potassium 3.9 MMOL/L (3.5-5.1)
[2016-11-20] MEDS: PIPERACILLIN/TAZOBACTAM 3,375 MG in SODIUM CHLORIDE 0.9% 100 ML IV SCH ×3 (05:59→21:29)
[2016-11-20 06:12] LABS: Hypochromasia 2+; Lymphocytes 11 % (20-55); Microcytosis 1+; Platelet Estimate Adequate; Polychromasia Slight; Segmented Neutrophils 85 % (50-85); Target Cells Slight; Total Cells Counted 100
[2016-11-20] MEDS: LANSOPRAZOLE ODT 30 MG TABLET PER TUBE SCH (10:17)
[2016-11-20] MEDS: FERROUS SULFATE 325 MG TABLET PO SCH ×2 (10:18→21:29)
[2016-11-20] MEDS: FLUTICASONE/SALMETEROL 250-50 DISKUS 14 DOSE INH SCH ×2 (10:18→21:30)
[2016-11-20] MEDS: ASPIRIN CHEW 81 MG TABLET PO SCH (10:18)
[2016-11-20] MEDS: MEMANTINE 10 MG TABLET PO SCH ×2 (10:18→21:29)
--- NOTE | 2016-11-20 10:18 | Hospitalist Progress Note ---
Assessment and Plan (1) RLL pneumonia Status: Acute Assessment and plan: - Time spent with patient Time spent with patient: Greater than 30 minutes (1) Septic shock Problem details: 11/16/16: Off levophed, but still on IV dopamine. Continue IV antibiotics and IVF. Dopamine dose reduced to 2 mcg/min. Continue to wean until off Status: Acute Current Visit: Yes (2) Metabolic encephalopathy resolved Status: Acute Current Visit: Yes (3) HCAP (healthcare-associated pneumonia) Problem details: 11/16/16: Mental status has improved when compared to yesterday. Continue current IV antibiotics treatment regimen. Per Dr. Langston's note on 11/15/16: Worsening leukocytosis. MRSE growth reported in right second toe wound culture 11/12/2016. E. coli growth in 11/12/2016 urine culture. No growth in 11/12/2016 blood cultures. Patient is receiving Levaquin and Zosyn empiric antibiotic therapy. Repeat chest x-ray to evaluate right lower lobe pneumonia Status: Acute Current Visit: Yes (4) Acute kidney injury superimposed on chronic kidney disease Problem details: Improving BUN and creatinine. Monitor BUN/Cr in am. Status: Acute Current Visit: Yes (5) Elevated LFTs Status: Acute Assessment and plan: Monitor LFT's in am. Bilirubin is improving. Hold Zocor. Current Visit: Yes (6) Dementia Status: Acute Current Visit: Yes (7) Toe ulcer Problem details: Left dorsal second toe distal segment. Wound management strategies reviewed. Status: Chronic Current Visit: Yes (8) Cholelithiasis Problem details: Moderate common bile duct dilatation reported on ultrasound exam (6.5 mm). Gallbladder wall thickening not reported. Low clinical suspicion for acute cholecystitis. Status: Acute Current Visit: Yes Current Visit: Yes Qualifiers: Pneumonia type: due to unspecified organism Qualified Code(s): J18.1 - Lobar pneumonia, unspecified organism (2) Lactic acidosis Status: Resolved Current Visit: Yes (3) Metabolic encephalopathy Status: Resolved Current Visit: Yes (4) Dementia Status: Chronic Current Visit: Yes Qualifiers: Dementia type: Alzheimer's disease (5) Hyperbilirubinemia Status: Resolved Current Visit: Yes (6) Sepsis Status: Resolved Current Visit: Yes Qualifiers: Sepsis type: sepsis due to unspecified organism Qualified Code(s): A41.9 - Sepsis, unspecified organism (7) Hypernatremia Status: Resolved Current Visit: Yes (8) Ulcer of left second toe Status: Chronic Current Visit: Yes Qualifiers: Non-pressure ulcer stage: unspecified non-pressure ulcer stage Qualified Code(s): L97.529 - Non-pressure chronic ulcer of other part of left foot with unspecified severity (9) Acute kidney injury superimposed on chronic kidney disease Problem details: Improving BUN and creatinine. Monitor BUN/Cr in am. Status: Resolved Current Visit: Yes Hospitalist: Subjective Interval history: Patient seen and examined. No acute events overnight. Case discussed with nursing staff. Labs reviewed. Remains on dopamine at 4 mcgs per minute. Exam - Constitutional Vitals: Period Temp Pulse Resp BP Sys/Grimm Pulse Ox Last 24 Hr 97 F-99.9 F 83-108 12-21 68-134/32-64 94-100 Exam: Constitutional System: No distress. No tremulousness. Head: Normocephalic, atraumatic. Ears, Nose and Throat System: No pain or tenderness. No epistaxis or discharge Eyes System: Pupils equal, round, and reactive. Extraocular muscles intact. Neck: Supple, without adenopathy, No jugular venous distention. No thyromegaly, neck mass, or prior surgery apparent. Respiratory System: Chest rhonchi right lower lobe to auscultation. Cardiovascular System: Irregular rate and rhythm. GI System: Abdomen soft, nontender. Normo active bowel sounds present. Musculoskeletal System: limbs with no pedal edema. Full distal pulses. Heel protectors on. Bandage to the ulcerated second toe intact. Neurological System: No discernable sensory deficit. No aphasia Psychiatric System: Patient is hard of hearing. Results - Labs CBC & BMP: 11/20/16 04:30 11/20/16 04:30 Lab Results: I have reviewed the past 24 hour labs
[2016-11-20] MEDS: LEVOFLOXACIN INJ 500 MG in PREMIX 1 EACH IV SCH (10:22)
--- NOTE | 2016-11-20 10:24 | Gastrointestinal Progress Note ---
<SpencerjasperAda Janis - Last Filed: 11/20/16 10:18> Assessment and Plan (1) Elevated LFTs Status: Acute Assessment and plan: 11/20-No changes in current status. No c/o abd pain. Tolerating tube feedings. No recheck on LFT. Plan and addendum to follow by Dr Tavarez. 11/18-LFTs essentially unchanged with bilirubin trending down slightly at 1.0. Tolerating tube feedings at present time. Continue to monitor. Plan addendum follow Dr. Tavarez 11/17-LFTs are trending down slowly at this time. No complaints of abdominal pain. NG tube is in place to start tube feedings following dietitian consult. Afebrile. Continue to monitor present time. Plan an addendum to follow by Dr. Tavarez. 11/14-no repeat LFTs today. Continued fever and elevation in WBCs noted. Gram- negative rods on preliminary UA. No complaints of pain. Recheck LFTs today continue to monitor at present time. Plan an addendum to follow by Dr. Tavarez. 11/13-One day history of changes in mental status from baseline, admitted with findings of sepsis, pneumonia and elevated LFT and cholelithiasis with dilated CBD on US. Febrile with gram positive cocci on preliminary wound culture. Currently on pressor support. Plan and addendum to follow by Dr Tavarez. Current Visit: Yes Gastroenterology - PN: Subj Interval history: CC: Elevated LFTs, cholelithiasis Pt is seen awake and alert, lying in bed. States he is feeling about the same however complaining of chills. He is continuing with his tube feedings and tolerating this well. Nursing staff states they have been unable to keep him off the Dopamine and shortly after he is weaned it has to be restarted. Abdomen is soft, nontender. LFTs not rechecked today. ROS: Denies SOB or chest pain Exam (Progress Note) - Constitutional Vitals: Period Temp Pulse Resp BP Sys/Grimm Pulse Ox Last 24 Hr 97 F-99.9 F 83-108 12-21 68-134/32-64 94-100 General appearance: normal weight, no acute distress - Head Head exam: Present: normal inspection, normocephalic - Eye Eye exam: Present: other (lids and conjunctiva unremarakble). Absent: scleral icterus - ENT ENT exam: Present: normal exam, normal oropharynx - Neck Neck exam: Present: normal inspection - Respiratory Respiratory exam: Present: clear to auscultation bilaterally. Absent: rales, rhonchi, wheezes - Cardiovascular Cardiovascular exam: Present: regular rate and rhythm. Absent: diastolic murmur , JVD, systolic murmur - GI/Abdominal GI/Abdominal exam: Present: normal bowel sounds, soft. Absent: ascites, distended, mass, organomegaly, tenderness - Extremities Exam Extremities exam: Present: normal inspection, full ROM - Back Exam Back exam: Present: normal inspection - Neurological Exam Neurological exam: Present: alert, oriented X3 - Psychiatric Psychiatric exam: Present: normal affect, normal mood - Skin Skin exam: Present: normal color, warm, dry Results - Labs CBC & BMP: 11/20/16 04:30 11/20/16 04:30 Lab Results: I have reviewed the past 24 hour labs <Michelet Tavarez - Last Filed: 11/20/16 17:13> Exam (Progress Note) - Constitutional Vitals: Period Temp Pulse Resp BP Sys/Grimm Pulse Ox Last 24 Hr 98.4 F-100 F 81-108 13-21 68-122/32-64 97-100 Results - Labs CBC & BMP: 11/20/16 04:30 11/20/16 04:30
[2016-11-20] MEDS: WARFARIN 3 MG TABLET PO SCH (14:35)
[2016-11-20] MEDS: DIGOXIN 0.125 MG TABLET PO SCH (14:35)
[2016-11-20] MEDS: SODIUM CHLORIDE 0.45% 1,000 ML IV SCH (14:36)
--- NOTE | 2016-11-20 17:04 | Infectious Disease Progress ---
Assessment and Plan (1) Acute kidney injury superimposed on chronic kidney disease Problem details: Improving BUN and creatinine. Monitor BUN/Cr in am. Status: Resolved Assessment and plan: Acute on chronic renal insufficiency likely due to hypotension. Renal function almost normal now. Current Visit: Yes (2) Altered mental status Status: Acute Current Visit: Yes (3) Dementia Status: Acute Current Visit: Yes (4) RLL pneumonia Status: Acute Assessment and plan: Healthcare associated pneumonia involving right lower lobe with improving infiltrate on current antibiotics, that is Zosyn and levofloxacin. Plan is to continue current therapy for total of about 7 days. Current Visit: Yes Qualifiers: Pneumonia type: due to unspecified organism Qualified Code(s): J18.1 - Lobar pneumonia, unspecified organism (5) Toe ulcer Problem details: Left dorsal second toe distal segment. Wound management strategies reviewed. Status: Chronic Assessment and plan: At least stage III ulcer to right second toe. MRSE cultured which may or may not be a colonizer. Patient may have underlying peripheral vascular disease. Recommendations: Continue local wound care Current Visit: Yes (6) Bacteriuria Status: Acute Assessment and plan: 2000 CFU's of E. coli with a negative urinalysis. This is asymptomatic bacteriuria. Treatment is not indicated. Current Visit: Yes (7) Hypotension Status: Acute Assessment and plan: Hypotension better overall but patient still on a little dopamine. Blood cultures negative. Current Visit: Yes Infectious Disease - PN: Subj Interval history: Patient doing fair, dopamine stop last night but it was restarted again today. He has not had fever. Infectious Disease Exam (PN) - Constitutional Vitals: Temp Pulse Resp BP Pulse Ox 100 F H 83 19 95/39 99 11/20/16 15:30 11/20/16 15:30 11/20/16 15:00 11/20/16 15:30 11/20/16 15:00 General appearance: normal weight, no acute distress Exam: General appearance: A little more responsive today, try to talk but not able to understand him - Eye Eye exam: Present: EOMI. no icterus Pupils: Present: ROHINI - Respiratory Respiratory exam: vesicular BS, no crepitations or wheezes - Cardiovascular Cardiovascular exam: regular rate and rhythm, no murmurs - GI/Abdominal GI/Abdominal exam: normal bowel sounds, soft, non-tender, no organomegaly or mass - Extremities Exam Extremities exam: no edema, clean ulcer to right second toe - Skin Skin exam: no rash Results - Labs CBC & BMP: 11/20/16 04:30 11/20/16 04:30 Lab Results: I have reviewed the past 24 hour labs
[2016-11-20] MEDS: DOPamine 800 MG/250 ML PREMIX IV SCH (19:02)
[2016-11-20] MEDS: DONEPEZIL 10 MG TABLET PO SCH (21:29)
[2016-11-21 04:18] LABS: Basophils % 0.3 % (0.0-0.8); Eosinophils # 0.7 10*3/uL (0.0-0.87); Eosinophils % 4.8 % (0.00-10.9); Hematocrit 30.2 VOL% (42.0-52.0); Hemoglobin 9.5 GM/DL (14.0-18.0); Immature Granulocytes % 1.2 %; Immature Granulocytes Absolute 0.16 #; Lymphocytes # 1.5 10*3/uL (1.4-4.0); Lymphocytes % 11.1 % (21.2-54.2); Mean Corpuscular HGB Conc 31.5 GM/DL (32-36); Mean Corpuscular Hemoglobin 30 PG (27-34); Mean Corpuscular Volume 94.4 FL (87-102); Mean Platelet Volume 11.8 FL (9.6-12.0); Monocytes # 1.1 10*3/uL (0.11-0.8); Monocytes % 8.5 % (1.7-12.7); Neutrophils % 74.1 % (38.7-73.9); Platelet Count 229 T/CUMM (130-400); Red Cell Distribution Width 15.3 % (9.3-17.3); White Blood Count 13.5 T/CUMM (4-12)
[2016-11-21 04:50] LABS: Albumin 1.7 G/DL (3.4-5.0); Bilirubin,Total 0.8 MG/DL (0.2-1.0); Calcium 7.4 MG/DL (8.5-10.1); Osmolality,Calculated 284.4 MOS/KG (273-304); Potassium 4.4 MMOL/L (3.5-5.1); Total Protein 5.1 G/DL (6.4-8.3)
[2016-11-21 05:36] LABS: Magnesium 2.6 MG/DL (1.8-2.4); Phosphorous 2.8 MG/DL (2.5-4.9)
[2016-11-21] MEDS: PIPERACILLIN/TAZOBACTAM 3,375 MG in SODIUM CHLORIDE 0.9% 100 ML IV SCH ×3 (05:38→21:28)
[2016-11-21] MEDS: FLUTICASONE/SALMETEROL 250-50 DISKUS 14 DOSE INH SCH ×2 (09:29→21:39)
[2016-11-21] MEDS: FERROUS SULFATE 325 MG TABLET PO SCH ×2 (09:29→21:28)
[2016-11-21] MEDS: ASPIRIN CHEW 81 MG TABLET PO SCH (09:29)
[2016-11-21] MEDS: LANSOPRAZOLE ODT 30 MG TABLET PER TUBE SCH (09:29)
[2016-11-21] MEDS: MEMANTINE 10 MG TABLET PO SCH ×2 (09:29→21:28)
[2016-11-21] MEDS ORDERED: HYDROCORTISONE 100 MG VIAL IV ONE (09:37)
[2016-11-21] MEDS ORDERED: SODIUM CHLORIDE 0.9% 500 ML IV ONE (09:38)
[2016-11-21] MEDS: SODIUM CHLORIDE 0.45% 1,000 ML IV SCH (10:30)
[2016-11-21] MEDS: LEVOFLOXACIN INJ 500 MG in PREMIX 1 EACH IV SCH (10:46)
--- NOTE | 2016-11-21 11:42 | Infectious Disease Progress ---
Assessment and Plan (1) Acute kidney injury superimposed on chronic kidney disease Problem details: Improving BUN and creatinine. Monitor BUN/Cr in am. Status: Resolved Assessment and plan: Acute on chronic renal insufficiency likely due to hypotension. Renal function almost normal now. Current Visit: Yes (2) Altered mental status Status: Acute Current Visit: Yes (3) Dementia Status: Acute Current Visit: Yes (4) RLL pneumonia Status: Acute Assessment and plan: Healthcare associated pneumonia involving right lower lobe with improving infiltrate on current antibiotics, that is Zosyn and levofloxacin. Complete 10 days of Zosyn tomorrow; levofloxacin can be stopped and as well. I will sign off now. Call again prn. Current Visit: Yes Qualifiers: Pneumonia type: due to unspecified organism Qualified Code(s): J18.1 - Lobar pneumonia, unspecified organism (5) Toe ulcer Problem details: Left dorsal second toe distal segment. Wound management strategies reviewed. Status: Chronic Assessment and plan: At least stage III ulcer to right second toe. MRSE cultured which may or may not be a colonizer. Patient may have underlying peripheral vascular disease. Recommendations: Continue local wound care Current Visit: Yes (6) Bacteriuria Status: Acute Assessment and plan: 2000 CFU's of E. coli with a negative urinalysis. This is asymptomatic bacteriuria. Treatment is not indicated. Current Visit: Yes (7) Hypotension Status: Acute Assessment and plan: Hypotension better overall but patient still on a little dopamine; may be cardiogenic. Blood cultures negative. Current Visit: Yes Infectious Disease - PN: Subj Interval history: No new cyst since yesterday, afebrile. Infectious Disease Exam (PN) - Constitutional Vitals: Temp Pulse Resp BP Pulse Ox 97.5 F L 83 20 97/46 100 11/21/16 08:00 11/21/16 11:00 11/21/16 11:00 11/21/16 11:00 11/21/16 11:00 General appearance: normal weight, no acute distress Exam: General appearance: Arousable, appeared comfortable - Eye Eye exam: Present: EOMI. no icterus Pupils: Present: ROHINI - Respiratory Respiratory exam: vesicular BS, no crepitations or wheezes - Cardiovascular Cardiovascular exam: regular rate and rhythm, no murmurs - GI/Abdominal GI/Abdominal exam: normal bowel sounds, soft, non-tender, no organomegaly or mass - Extremities Exam Extremities exam: no edema, clean ulcer to right second toe - Skin Skin exam: no rash Results - Labs CBC & BMP: 11/21/16 02:51 11/21/16 02:51 Lab Results: I have reviewed the past 24 hour labs
--- NOTE | 2016-11-21 12:10 | Hospitalist Progress Note ---
Assessment and Plan (1) RLL pneumonia Status: Acute Assessment and plan: Continue Zosyn. Follow-up repeat chest x-ray Current Visit: Yes Qualifiers: Pneumonia type: due to unspecified organism Qualified Code(s): J18.1 - Lobar pneumonia, unspecified organism (2) Lactic acidosis Status: Resolved Current Visit: Yes (3) Metabolic encephalopathy Status: Resolved Current Visit: Yes (4) Dementia Status: Chronic Current Visit: Yes Qualifiers: Dementia type: Alzheimer's disease (5) Hyperbilirubinemia Status: Resolved Current Visit: Yes (6) Sepsis Status: Resolved Current Visit: Yes Qualifiers: Sepsis type: sepsis due to unspecified organism Qualified Code(s): A41.9 - Sepsis, unspecified organism (7) Hypernatremia Status: Resolved Current Visit: Yes (8) Ulcer of left second toe Status: Chronic Current Visit: Yes Qualifiers: Non-pressure ulcer stage: unspecified non-pressure ulcer stage Qualified Code(s): L97.529 - Non-pressure chronic ulcer of other part of left foot with unspecified severity (9) Acute kidney injury superimposed on chronic kidney disease Problem details: Improving BUN and creatinine. Monitor BUN/Cr in am. Status: Resolved Current Visit: Yes Hospitalist: Subjective Interval history: Patient seen and examined. No acute events overnight. Case discussed with nursing staff. Labs reviewed. The patient remains on dopamine. I am giving him a fluid bolus and a dose of Solu-Cortef in an attempt to wean off the dopamine. The infections are being treated appropriately with antibiotics and he is overall improved. He still has an NG tube in for continued tube feedings and I think we should consider PEG tube placement. I will discuss this with his family today. Exam - Constitutional Vitals: Period Temp Pulse Resp BP Sys/Grimm Pulse Ox Last 24 Hr 97.5 F-100.1 F 61-100 14-20 61-124/38-71 93-100 Exam: Constitutional System: No distress. No tremulousness. Head: Normocephalic, atraumatic. Ears, Nose and Throat System: No pain or tenderness. No epistaxis or discharge. NG tube in place Eyes System: Pupils equal, round, and reactive. Extraocular muscles intact. Neck: Supple, without adenopathy, No jugular venous distention. Respiratory System: Chest rhonchi right lower lobe to auscultation. Cardiovascular System: Irregular rate and rhythm. GI System: Abdomen soft, nontender. Normo active bowel sounds present. Musculoskeletal System: limbs with no pedal edema. Full distal pulses. Heel protectors on. Bandage to the ulcerated second toe intact. Neurological System: No discernable sensory deficit. No aphasia Psychiatric System: Patient is hard of hearing. Results - Labs CBC & BMP: 11/21/16 02:51 11/21/16 02:51 Lab Results: I have reviewed the past 24 hour labs
[2016-11-21] MEDS: DIGOXIN 0.125 MG TABLET PO SCH (13:29)
[2016-11-21] MEDS: DOPamine 800 MG/250 ML PREMIX IV SCH (17:13)
[2016-11-21] MEDS: HYDROCORTISONE 100 MG VIAL IV SCH (17:15)
[2016-11-21] MEDS: DONEPEZIL 10 MG TABLET PO SCH (21:28)
[2016-11-22] MEDS: HYDROCORTISONE 100 MG VIAL IV SCH ×2 (01:45→08:39)
[2016-11-22 06:07] LABS: Basophils % 0.1 % (0.0-0.8); Hematocrit 30.1 VOL% (42.0-52.0); Hemoglobin 9.6 GM/DL (14.0-18.0); Immature Granulocytes Absolute 0.15 #; Lymphocytes # 0.4 10*3/uL (1.4-4.0); Mean Corpuscular HGB Conc 31.9 GM/DL (32-36); Mean Corpuscular Hemoglobin 30 PG (27-34); Mean Corpuscular Volume 94.7 FL (87-102); Mean Platelet Volume 11.1 FL (9.6-12.0); Monocytes # 0.4 10*3/uL (0.11-0.8); Monocytes % 2.8 % (1.7-12.7); Neutrophils # 13.7 10*3/uL (1.4-7.4); Neutrophils % 93.1 % (38.7-73.9); Platelet Count 285 T/CUMM (130-400); Red Blood Count 3.18 MC/CUMM (3.8-5.5); Red Cell Distribution Width 15.2 % (9.3-17.3); White Blood Count 14.7 T/CUMM (4-12)
[2016-11-22] MEDS: PIPERACILLIN/TAZOBACTAM 3,375 MG in SODIUM CHLORIDE 0.9% 100 ML IV SCH ×3 (06:07→21:24)
[2016-11-22 06:16] LABS: INR 1.3; PT Patient Result 13.4 SECS
[2016-11-22 06:48] LABS: Albumin 1.8 G/DL (3.4-5.0); Bilirubin,Total 0.9 MG/DL (0.2-1.0); Calcium 7.8 MG/DL (8.5-10.1); Osmolality,Calculated 293.3 MOS/KG (273-304); Potassium 4.3 MMOL/L (3.5-5.1); Total Protein 5.4 G/DL (6.4-8.3)
[2016-11-22 06:49] LABS: Hypochromasia 1+; Lymphocytes 2 % (20-55); Segmented Neutrophils 95 % (50-85); Total Cells Counted 100
[2016-11-22 06:50] LABS: Microcytosis 1+; Platelet Estimate Normal
[2016-11-22] MEDS: ASPIRIN CHEW 81 MG TABLET PO SCH (08:41)
[2016-11-22] MEDS: FERROUS SULFATE 325 MG TABLET PO SCH ×2 (08:41→21:25)
[2016-11-22] MEDS: MEMANTINE 10 MG TABLET PO SCH ×2 (08:41→21:25)
[2016-11-22] MEDS: LANSOPRAZOLE ODT 30 MG TABLET PER TUBE SCH (08:41)
--- NOTE | 2016-11-22 08:44 | XRay Report ---
XR chest 1V portable Indication: Follow-up pneumonia. Chest one view: Comparison 11/14/2016. Central line is stable. There is now an NG tube present barely entering the stomach. Recommend advancing slightly. Cardiomegaly is more pronounced than previous, there is worsening obscuration of both lung bases. Haziness to the mid right lung is present but stable. Impression: Worsening bibasilar pneumonia, especially on the left. Mildly worsened cardiomegaly. NG tube as described, recommend advancing slightly. PROCEDURE INTERPRETED AT [facility] DEPARTMENT OF RADIOLOGY Final Report Signed by: Alcon Miller M.D.
[2016-11-22] MEDS: FLUTICASONE/SALMETEROL 250-50 DISKUS 14 DOSE INH SCH ×2 (09:37→21:27)
[2016-11-22] MEDS: MEROPENEM 1,000 MG in SODIUM CHLORIDE 0.9% 100 ML IV SCH ×2 (09:59→18:02)
[2016-11-22] MEDS ORDERED: methylPREDNISolone SOD SUC 40 MG/1 ML VIAL IV SCH (10:00)
[2016-11-22] MEDS: DOPamine 800 MG/250 ML PREMIX IV SCH (10:06)
--- NOTE | 2016-11-22 11:16 | Hospitalist Progress Note ---
Assessment and Plan (1) RLL pneumonia Status: Acute Assessment and plan: Add Merrem. Bilateral lower lobe infiltrates appear worse on chest x-ray performed this morning. Consider pulmonary consult. Current Visit: Yes Qualifiers: Pneumonia type: due to unspecified organism Qualified Code(s): J18.1 - Lobar pneumonia, unspecified organism (2) Lactic acidosis Status: Resolved Current Visit: Yes (3) Metabolic encephalopathy Status: Resolved Current Visit: Yes (4) Dementia Status: Chronic Current Visit: Yes Qualifiers: Dementia type: Alzheimer's disease (5) Hyperbilirubinemia Status: Resolved Current Visit: Yes (6) Sepsis Status: Resolved Current Visit: Yes Qualifiers: Sepsis type: sepsis due to unspecified organism Qualified Code(s): A41.9 - Sepsis, unspecified organism (7) Hypernatremia Status: Resolved Current Visit: Yes (8) Ulcer of left second toe Status: Chronic Current Visit: Yes Qualifiers: Non-pressure ulcer stage: unspecified non-pressure ulcer stage Qualified Code(s): L97.529 - Non-pressure chronic ulcer of other part of left foot with unspecified severity (9) Acute kidney injury superimposed on chronic kidney disease Problem details: Improving BUN and creatinine. Monitor BUN/Cr in am. Status: Resolved Current Visit: Yes Hospitalist: Subjective Interval history: Patient seen and examined. No acute events overnight. Case discussed with nursing staff. Labs reviewed. Remains on dopamine. Chest x-ray from today shows worsening bibasilar pneumonia. Will change antibiotics and continue ICU level care. I discussed the case with his granddaughter and POA yesterday. She has decided to go forward with PEG tube placement due to his poor nutritional state. He is currently receiving tube feeds through the NG tube. Exam - Constitutional Vitals: Period Temp Pulse Resp BP Sys/Grimm Pulse Ox Last 24 Hr 97.4 F-98.8 F 75-101 12-20 77-136/38-84 94-100 Exam: Constitutional System: No distress. No tremulousness. Head: Normocephalic, atraumatic. Ears, Nose and Throat System: No pain or tenderness. No epistaxis or discharge. NG tube in place Eyes System: Pupils equal, round, and reactive. Extraocular muscles intact. Neck: Supple, without adenopathy, No jugular venous distention. Respiratory System: Chest rhonchi right lower lobe to auscultation. Cardiovascular System: Irregular rate and rhythm. GI System: Abdomen soft, nontender. Normo active bowel sounds present. Musculoskeletal System: limbs with no pedal edema. Full distal pulses. Heel protectors on. Bandage to the ulcerated second toe intact. Neurological System: No discernable sensory deficit. No aphasia Psychiatric System: Patient is hard of hearing. Results - Labs CBC & BMP: 11/22/16 05:58 11/22/16 05:58 Lab Results: I have reviewed the past 24 hour labs
[2016-11-22] MEDS: LEVOFLOXACIN INJ 500 MG in PREMIX 1 EACH IV SCH (11:35)
[2016-11-22] MEDS: WARFARIN 3 MG TABLET PO SCH (11:44)
[2016-11-22] MEDS: DIGOXIN 0.125 MG TABLET PO SCH (11:53)
--- NOTE | 2016-11-22 13:46 | Pulmonology Consult Note ---
Assessment and Plan (1) Acute on chronic diastolic (congestive) heart failure Status: Acute Assessment and plan: Patient's weight is up 15 kg from admission. Creatinine has fallen from 2.7- 1.0 with hydration. I think he is ahead on fluids. Recheck BMP. Diuresed. Reduce IV fluids. Echo showed normal LV ejection fraction but with pulmonary hypertension and left atrial enlargement and atrial fibrillation this is likely diastolic dysfunction. Current Visit: Yes (2) Hypernatremia Status: Resolved Assessment and plan: This is been corrected with hydration. Current Visit: Yes (3) RLL pneumonia Status: Acute Assessment and plan: Healthcare facility acquired pneumonia. Seems to be clinically improved. No fever. Radiographic changes likely due to fluid. Current Visit: Yes Qualifiers: Pneumonia type: due to unspecified organism Qualified Code(s): J18.1 - Lobar pneumonia, unspecified organism (4) Lactic acidosis Status: Resolved Assessment and plan: This is improved since admission with hydration and correction of renal insufficiency Current Visit: Yes (5) Dementia Status: Chronic Assessment and plan: Patient not able to answer many healthcare questions Current Visit: Yes Qualifiers: Dementia type: Alzheimer's disease History of Present Illness Chief complaint: Shortness of breath History of present illness: Mr. Jensen is a 81 year old male who was admitted about 10 days ago with altered mental status hypernatremia and acute kidney injury. He also had a right lower lobe pneumonia. Echocardiogram has shown enlarged atria and pulmonary hypertension. LV ejection fraction was fairly normal at 50%. Patient's weight is now up 15 kg from admission and his creatinine has come down to normal. He said increased shortness of breath and infiltrate radiographically. I do think that he is now ahead on fluid Home Medications Medication Instructions Recorded Confirmed Type Acetaminophen 650 mg PO Q4H PRN 11/12/16 11/12/16 History Albuterol Sulfate [Proair Hfa] 2 puffs INH Q4H PRN 11/12/16 11/12/16 History Aspirin EC Tab 81 mg PO DAILY 11/12/16 11/12/16 History Dextromethorph/Quinidine 20-10 1 capsule PO BID 11/12/16 11/12/16 History [Nuedexta] Digoxin Tab [Lanoxin Tab] 0.125 mg PO 1200 11/12/16 11/12/16 History Donepezil HCl [Donepezil HCl] 10 mg PO BEDTIME 11/12/16 11/12/16 History Ferrous Sulfate 325 mg PO BID 11/12/16 11/12/16 History Fluticasone/Salmeterol 250-50 2 puff INH BID 11/12/16 11/12/16 History [Advair 250-50] Furosemide [Furosemide] 80 mg PO BID 11/12/16 11/12/16 History HydrOXYzine PAMOATE CAP [Vistaril 50 mg PO Q1H PRN 11/12/16 11/12/16 History Cap] Magnesium Hydroxide Susp [Milk of 30 ml PO DAILY 11/12/16 11/12/16 History Magnesia] Memantine HCl [Namenda XR] 28 mg PO BEDTIME 11/12/16 11/12/16 History Metoprolol Tartrate Tab [Lopressor 12.5 mg PO BID 11/12/16 11/12/16 History Tab] Multivit-Min/FA/Lycopen/Lutein 1 each PO DAILY 11/12/16 11/12/16 History [Centrum Silver Tablet] Nitroglycerin [Nitro-Bid 2% Oint] 1 applic TOP 0800,1400 11/12/16 11/12/16 History Omeprazole 20 mg PO DAILY 11/12/16 11/12/16 History Sacubitril/Valsartan [Entresto 49 1 tablet PO BID 11/12/16 11/12/16 History mg-51 mg Tablet] Simvastatin [Simvastatin] 10 mg PO BEDTIME 11/12/16 11/12/16 History Warfarin Sodium [Warfarin Sodium] 3 mg PO SUTUTHSA 11/12/16 11/12/16 History Warfarin Sodium [Warfarin Sodium] 4 mg PO MOWEFR 11/12/16 11/12/16 History Allergies Allergy/AdvReac Type Severity Reaction Status Date / Time No Known Allergies Allergy Verified 11/03/16 09:39 ROS unobtainable: due to mental status Exam (Pulmonay) H&P - Constitutional Vitals: Period Temp Pulse Resp BP Sys/Grimm Pulse Ox Last 24 Hr 97.4 F-98.8 F 75-101 12-20 77-136/39-84 94-100 Exam: Vital signs are normal except irregular pulse. Pupils react to light. Poor oral hygiene. Nasal oxygen in place. Neck is supple. Jugular venous distention is noted. Chest reveals some bibasilar rhonchi and rales. Heart normal rate irregular rhythm no murmurs. Abdomen soft nontender no masses. Extremities no clubbing or cyanosis she does have 1+ edema. Calves are nontender. Medical,Surgical,& Family Hx - Medical History Cardio: History of: Cardiac Dysrhythmia (A. Fib), CHF, CAD, Hypertension, SD Neurology: History of: Cerebrovascular Accident, Dementia HEENT: History of: Dental Problems (Missing uppers and lowers), Glaucoma Endocrine: History of: Dyslipidemia No history of: Diabetes Mellitus (IDDM), Diabetes Mellitus (NIDDM), Thyroid Disorder Respiratory: History of: COPD, Pulmonary Embolism Renal: History of: Renal Failure - Surgical History HEENT Surgeries: Patient denies: Tonsilectomy & Adenoidectomy Abdominal Surgeries: Patient denies: Appendectomy, Cholecystectomy - Social History Smoking Status: Unknown if ever smoked Frequency of Alcohol Use: Unknown Type of Drug Use: Unknown Results - Labs CBC & BMP: 11/22/16 05:58 11/22/16 05:58 Lab Results: I have reviewed the past 24 hour labs - Diagnostic Findings Procedure: Chest x-ray: image reviewed by me (Cardiomegaly. Small pleural effusions. Right lower lobe infiltrate)
[2016-11-22] MEDS: SODIUM CHLORIDE 0.45% 1,000 ML IV SCH (18:36)
[2016-11-22] MEDS: DONEPEZIL 10 MG TABLET PO SCH (21:25)
[2016-11-23] MEDS: MEROPENEM 1,000 MG in SODIUM CHLORIDE 0.9% 100 ML IV SCH ×3 (03:32→18:01)
[2016-11-23] MEDS: DOPamine 800 MG/250 ML PREMIX IV SCH ×2 (06:24→21:17)
[2016-11-23 07:35] LABS: Basophils % 0.1 % (0.0-0.8); Hematocrit 29.2 VOL% (42.0-52.0); Hemoglobin 9.2 GM/DL (14.0-18.0); Immature Granulocytes % 0.7 %; Immature Granulocytes Absolute 0.14 #; Lymphocytes # 0.7 10*3/uL (1.4-4.0); Lymphocytes % 3.5 % (21.2-54.2); Mean Corpuscular HGB Conc 31.5 GM/DL (32-36); Mean Corpuscular Hemoglobin 30 PG (27-34); Mean Corpuscular Volume 95.4 FL (87-102); Mean Platelet Volume 10.8 FL (9.6-12.0); Monocytes # 1.4 10*3/uL (0.11-0.8); Monocytes % 6.6 % (1.7-12.7); Neutrophils # 18.8 10*3/uL (1.4-7.4); Neutrophils % 89.1 % (38.7-73.9); Platelet Count 329 T/CUMM (130-400); Red Blood Count 3.06 MC/CUMM (3.8-5.5); Red Cell Distribution Width 15.4 % (9.3-17.3); White Blood Count 21.1 T/CUMM (4-12)
--- NOTE | 2016-11-23 07:51 | Pulmonology Progress Note ---
Pulmonary - PN: Subj Interval history: This 81-year-old man has dementia. He has congestive heart failure. We have diuresed him and his x-ray looks better. Oxygen saturation is improved as well. However patient remains somewhat hypotensive and is requiring low-dose dopamine. If that could be weaned he could be moved to the floor. Exam (Progress Note) - Constitutional Vitals: Period Temp Pulse Resp BP Sys/Grimm Pulse Ox Last 24 Hr 97.8 F-98.7 F 63-111 13-26 85-136/39-89 93-100 Exam: Patient is responsive but is difficult to understand what he saying. Systolic blood pressure is 120 on dopamine. Vital signs otherwise normal. Pupils react to light. Oral hygiene is poor. Neck is supple. Chest reveals a few basilar rhonchi otherwise clear. Heart normal rate, irregular rhythm no murmurs. Abdomen soft no masses. Liver edge is down. Extremities has 1+ peripheral edema. Has an NG tube and is tolerating feedings. Results - Labs CBC & BMP: 11/23/16 07:00 11/22/16 05:58 Lab Results: I have reviewed the past 24 hour labs - Diagnostic Findings Procedure: Chest x-ray: image reviewed by me (Cardiomegaly. Right infiltrate a little less. Pleural effusions a little less prominent.) Assessment and Plan (1) Acute on chronic diastolic (congestive) heart failure Status: Acute Assessment and plan: Patient's weight is up 15 kg from admission. Creatinine has fallen from 2.7- 1.0 with hydration. I think he is ahead on fluids. Recheck BMP. Diuresed. Reduce IV fluids. Echo showed normal LV ejection fraction but with pulmonary hypertension and left atrial enlargement and atrial fibrillation this is likely diastolic dysfunction. 11/23/2016 it appears that he diuresed yesterday although his weight is not different today. We will continue with Lasix alone longer. Current Visit: Yes (2) Hypernatremia Status: Resolved Assessment and plan: This is been corrected with hydration. 11/23/2016 sodium 141. Current Visit: Yes (3) RLL pneumonia Status: Acute Assessment and plan: Healthcare facility acquired pneumonia. Seems to be clinically improved. No fever. Radiographic changes likely due to fluid. 11/23/2016 continuing antibiotics. Reduce steroids Current Visit: Yes Qualifiers: Pneumonia type: due to unspecified organism Qualified Code(s): J18.1 - Lobar pneumonia, unspecified organism (4) Lactic acidosis Status: Resolved Assessment and plan: This is improved since admission with hydration and correction of renal insufficiency Current Visit: Yes (5) Dementia Status: Chronic Assessment and plan: Patient not able to answer many healthcare questions 11/23/2016 difficult to follow his speech. Current Visit: Yes Qualifiers: Dementia type: Alzheimer's disease
[2016-11-23 07:57] LABS: Albumin 1.8 G/DL (3.4-5.0); Bilirubin,Total 0.4 MG/DL (0.2-1.0); Calcium 7.3 MG/DL (8.5-10.1); Osmolality,Calculated 292.1 MOS/KG (273-304); Potassium 4.2 MMOL/L (3.5-5.1); Total Protein 5.1 G/DL (6.4-8.3)
[2016-11-23 08:27] LABS: Band Neutrophils 1 % (0-10); Hypochromasia 1+; Lymphocytes 4 % (20-55); Microcytosis 1+; Ovalocytes Slight; Platelet Estimate Normal; Polychromasia Slight; Segmented Neutrophils 89 % (50-85); Total Cells Counted 100
[2016-11-23] MEDS: FLUTICASONE/SALMETEROL 250-50 DISKUS 14 DOSE INH SCH ×2 (09:03→20:39)
[2016-11-23] MEDS: FUROSEMIDE 20 MG/2 ML VIAL IV SCH (09:04)
[2016-11-23] MEDS: MEMANTINE 10 MG TABLET PO SCH ×2 (09:09→20:38)
[2016-11-23] MEDS: ASPIRIN CHEW 81 MG TABLET PO SCH (09:09)
[2016-11-23] MEDS: FERROUS SULFATE 325 MG TABLET PO SCH ×2 (09:09→20:38)
[2016-11-23] MEDS: LANSOPRAZOLE ODT 30 MG TABLET PER TUBE SCH (09:09)
--- NOTE | 2016-11-23 09:35 | Hospitalist Progress Note ---
Assessment and Plan (1) RLL pneumonia Status: Acute Assessment and plan: Merrem added yesterday. Bilateral lower lobe infiltrates appear improved on chest x-ray performed this morning-after receiving Lasix. discussed with pulmonary, Dr. Barnes, on rounds.. Current Visit: Yes Qualifiers: Pneumonia type: due to unspecified organism Qualified Code(s): J18.1 - Lobar pneumonia, unspecified organism (2) Lactic acidosis Status: Resolved Current Visit: Yes (3) Metabolic encephalopathy Status: Resolved Current Visit: Yes (4) Dementia Status: Chronic Current Visit: Yes Qualifiers: Dementia type: Alzheimer's disease (5) Hyperbilirubinemia Status: Resolved Current Visit: Yes (6) Sepsis Status: Resolved Current Visit: Yes Qualifiers: Sepsis type: sepsis due to unspecified organism Qualified Code(s): A41.9 - Sepsis, unspecified organism (7) Hypernatremia Status: Resolved Current Visit: Yes (8) Ulcer of left second toe Status: Chronic Current Visit: Yes Qualifiers: Non-pressure ulcer stage: unspecified non-pressure ulcer stage Qualified Code(s): L97.529 - Non-pressure chronic ulcer of other part of left foot with unspecified severity (9) Acute kidney injury superimposed on chronic kidney disease Problem details: Improving BUN and creatinine. Monitor BUN/Cr in am. Status: Resolved Current Visit: Yes Hospitalist: Subjective Interval history: Patient seen and examined. No acute events overnight. Case discussed with nursing staff. Labs reviewed. Pulmonary consult reviewed. X-ray improved after Lasix administration yesterday. He remains on dopamine. Albumin has been added. Exam - Constitutional Vitals: Period Temp Pulse Resp BP Sys/Grimm Pulse Ox Last 24 Hr 97.8 F-98.7 F 77-111 13-26 85-136/39-77 93-100 Exam: Constitutional System: No distress. No tremulousness. Head: Normocephalic, atraumatic. Ears, Nose and Throat System: No pain or tenderness. No epistaxis or discharge. NG tube in place Eyes System: Pupils equal, round, and reactive. Extraocular muscles intact. Neck: Supple, without adenopathy, No jugular venous distention. Respiratory System: Chest clear bilaterally to auscultation. Cardiovascular System: Irregular rate and rhythm. GI System: Abdomen soft, nontender. Normo active bowel sounds present. Musculoskeletal System: limbs with no pedal edema. Full distal pulses. Heel protectors on. Bandage to the ulcerated second toe intact. Neurological System: No discernable sensory deficit. No aphasia Psychiatric System: Patient is hard of hearing. Results - Labs CBC & BMP: 11/23/16 07:00 11/23/16 07:00 Lab Results: I have reviewed the past 24 hour labs - Diagnostic Findings Procedure: Chest x-ray: image reviewed by me, report reviewed by me
[2016-11-23] MEDS ORDERED: methylPREDNISolone SOD SUC 40 MG/1 ML VIAL IV SCH ×2 (10:00)
--- NOTE | 2016-11-23 10:30 | XRay Report ---
Portable chest Date: 11/23/2016 Clinical history: Pneumonia, CHF Comparison: 11/22/2016 Technique: Portable AP sitting chest Findings: The heart is minimally enlarged with stable nasogastric tube and right IJ CVP line. Reduced parenchymal findings with smaller pleural effusions. Bilateral skinfolds are noted. Stable mediastinum and osseous structures. Impression: Improved CHF/pneumonia with smaller pleural effusions. PROCEDURE INTERPRETED AT [facility] DEPARTMENT OF RADIOLOGY Final Report Signed by: Dr. Clarissa Navarro
[2016-11-23] MEDS: ALBUMIN 25% 25 GM in PREMIX 1 EACH IV SCH ×2 (11:00→17:56)
[2016-11-23] MEDS: WARFARIN 3 MG TABLET PO SCH (11:00)
[2016-11-23] MEDS: DIGOXIN 0.125 MG TABLET PO SCH (11:42)
[2016-11-23] MEDS: DONEPEZIL 10 MG TABLET PO SCH (20:38)
[2016-11-24] MEDS: ALBUMIN 25% 25 GM in PREMIX 1 EACH IV SCH (02:04)
[2016-11-24] MEDS: MEROPENEM 1,000 MG in SODIUM CHLORIDE 0.9% 100 ML IV SCH ×3 (02:04→19:31)
[2016-11-24 03:49] LABS: Basophils % 0.1 % (0.0-0.8); Eosinophils % 0.1 % (0.00-10.9); Hematocrit 27.2 VOL% (42.0-52.0); Hemoglobin 8.5 GM/DL (14.0-18.0); Immature Granulocytes % 0.8 %; Immature Granulocytes Absolute 0.13 #; Lymphocytes % 6.5 % (21.2-54.2); Mean Corpuscular HGB Conc 31.3 GM/DL (32-36); Mean Corpuscular Hemoglobin 30 PG (27-34); Mean Corpuscular Volume 96.5 FL (87-102); Mean Platelet Volume 10.4 FL (9.6-12.0); Monocytes # 1.4 10*3/uL (0.11-0.8); Monocytes % 8.9 % (1.7-12.7); NRBC # 0.04 10*3/uL; Neutrophils # 12.9 10*3/uL (1.4-7.4); Neutrophils % 83.6 % (38.7-73.9); Platelet Count 333 T/CUMM (130-400); Red Blood Count 2.82 MC/CUMM (3.8-5.5); Red Cell Distribution Width 15.5 % (9.3-17.3); White Blood Count 15.4 T/CUMM (4-12)
[2016-11-24 04:00] LABS: INR 1.3
[2016-11-24 04:22] LABS: Calcium 8.1 MG/DL (8.5-10.1); Osmolality,Calculated 289.3 MOS/KG (273-304); Potassium 4.5 MMOL/L (3.5-5.1)
[2016-11-24 04:34] LABS: Phosphorous 2.2 MG/DL (2.5-4.9); Prealbumin 14.4 MG/DL (20-40)
--- NOTE | 2016-11-24 07:13 | Pulmonology Progress Note ---
Pulmonary - PN: Subj Interval history: This 81-year-old man has dementia. He has congestive heart failure. We have diuresed him and his x-ray looks better. Oxygen saturation is improved as well. However patient remains somewhat hypotensive and is requiring low-dose dopamine. If that could be weaned he could be moved to the floor. 11/24/2016 patient responsive but difficult to understanding. Breathing appears better. Oxygen saturations look good. He is continuing to require low-dose dopamine for decreased cardiac output. Perhaps needs cardiology to see. Exam (Progress Note) - Constitutional Vitals: Period Temp Pulse Resp BP Sys/Grimm Pulse Ox Last 24 Hr 97.7 F-99.6 F 85-116 10-25 87-134/48-84 92-100 Exam: Patient is responsive but is difficult to understand what he saying. Systolic blood pressure is 80 on dopamine. Vital signs otherwise normal. Pupils react to light. Oral hygiene is poor. Neck is supple. Chest reveals a few basilar rhonchi otherwise clear. Heart normal rate, irregular rhythm no murmurs. Abdomen soft no masses. Liver edge is down. Extremities has 1+ peripheral edema. Has an NG tube and is tolerating feedings. Results - Labs CBC & BMP: 11/24/16 03:36 11/24/16 03:36 Lab Results: I have reviewed the past 24 hour labs Assessment and Plan (1) Acute on chronic diastolic (congestive) heart failure Status: Acute Assessment and plan: Patient's weight is up 15 kg from admission. Creatinine has fallen from 2.7- 1.0 with hydration. I think he is ahead on fluids. Recheck BMP. Diuresed. Reduce IV fluids. Echo showed normal LV ejection fraction but with pulmonary hypertension and left atrial enlargement and atrial fibrillation this is likely diastolic dysfunction. 11/23/2016 it appears that he diuresed yesterday although his weight is not different today. We will continue with Lasix alone longer. 11/24/16 hypoxemia has improved. Patient remains hypotensive. I think he is having forward failure. Cardiology consult may be helpful. Current Visit: Yes (2) Hypernatremia Status: Resolved Assessment and plan: This is been corrected with hydration. 11/23/2016 sodium 141. 11/24/2016 this is improved. Current Visit: Yes (3) RLL pneumonia Status: Acute Assessment and plan: Healthcare facility acquired pneumonia. Seems to be clinically improved. No fever. Radiographic changes likely due to fluid. 11/23/2016 continuing antibiotics. Reduce steroids 11/24/2016 continuing antibiotics. Needs steroids to cover adrenal function. Current Visit: Yes Qualifiers: Pneumonia type: due to unspecified organism Qualified Code(s): J18.1 - Lobar pneumonia, unspecified organism (4) Lactic acidosis Status: Resolved Assessment and plan: This is improved since admission with hydration and correction of renal insufficiency Current Visit: Yes (5) Dementia Status: Chronic Assessment and plan: Patient not able to answer many healthcare questions 11/23/2016 difficult to follow his speech. 11/24/16 patient does respond but it is unclear what his answers are to questions. Current Visit: Yes Qualifiers: Dementia type: Alzheimer's disease
[2016-11-24] MEDS: HYDROCORTISONE 100 MG VIAL IV SCH ×2 (08:50→19:31)
[2016-11-24] MEDS: LANSOPRAZOLE ODT 30 MG TABLET PER TUBE SCH (08:53)
[2016-11-24] MEDS: ASPIRIN CHEW 81 MG TABLET PO SCH (08:53)
[2016-11-24] MEDS: FUROSEMIDE 20 MG/2 ML VIAL IV SCH (08:53)
[2016-11-24] MEDS: FERROUS SULFATE 325 MG TABLET PO SCH ×2 (08:53→21:15)
[2016-11-24] MEDS: MEMANTINE 10 MG TABLET PO SCH ×2 (08:53→21:15)
[2016-11-24] MEDS: FLUTICASONE/SALMETEROL 250-50 DISKUS 14 DOSE INH SCH ×2 (09:13→21:15)
[2016-11-24] MEDS ORDERED: SODIUM CHLORIDE 0.9% 250 ML IV PRN (09:54)
--- NOTE | 2016-11-24 09:58 | Hospitalist Progress Note ---
Assessment and Plan - Time spent with patient Time spent with patient: Greater than 30 minutes (1) RLL pneumonia Status: Acute Assessment and plan: Merrem added. Bilateral lower lobe infiltrates appear improved on chest x-ray performed this morning-after receiving Lasix. Current Visit: Yes Qualifiers: Pneumonia type: due to unspecified organism Qualified Code(s): J18.1 - Lobar pneumonia, unspecified organism (2) Lactic acidosis Status: Inactive Current Visit: Yes (3) Metabolic encephalopathy Status: Inactive Current Visit: Yes (4) Dementia Status: Chronic Current Visit: Yes Qualifiers: Dementia type: Alzheimer's disease (5) Hyperbilirubinemia Status: Resolved Current Visit: Yes (6) Sepsis Status: Resolved Current Visit: Yes Qualifiers: Sepsis type: sepsis due to unspecified organism Qualified Code(s): A41.9 - Sepsis, unspecified organism (7) Hypernatremia Status: Inactive Current Visit: Yes (8) Ulcer of left second toe Status: Chronic Current Visit: Yes Qualifiers: Non-pressure ulcer stage: unspecified non-pressure ulcer stage Qualified Code(s): L97.529 - Non-pressure chronic ulcer of other part of left foot with unspecified severity (9) Acute kidney injury superimposed on chronic kidney disease Problem details: Improving BUN and creatinine. Monitor BUN/Cr in am. Status: Resolved Current Visit: Yes Hospitalist: Subjective Interval history: Patient seen and examined. No acute events overnight. Case discussed with nursing staff. Labs reviewed. Patient remains on dopamine. Pulmonary consult reviewed. Cardiology consult placed. CVP ordered and is pending. Patient is arousable, answers questions appropriately, and reports pain on his backside. His hemoglobin has been trending down over the past several days. Aspirin and Coumadin are being held. I have ordered 2 units of packed red blood cell transfusion. I have spoken with the patient's POA/granddaughter, Ximena, in our lab department-on Thursday and Thursday. She wants to pursue continued aggressive medical management. She was offered comfort care and hospice but has elected to go the route of PEG tube placement for continued nutrition and medication administration. The case was also discussed with Neha Alfonso NP -regarding the cardiology consult for difficulties weaning dopamine. Exam - Constitutional Vitals: Period Temp Pulse Resp BP Sys/Grimm Pulse Ox Last 24 Hr 97.7 F-99.6 F 85-116 10-25 87-134/48-84 92-100 Exam: Constitutional System: No distress. No tremulousness. Head: Normocephalic, atraumatic. Ears, Nose and Throat System: No pain or tenderness. No epistaxis or discharge. NG tube in place Eyes System: Pupils equal, round, and reactive. Extraocular muscles intact. Neck: Supple, without adenopathy, No jugular venous distention. Respiratory System: Chest clear bilaterally to auscultation. Cardiovascular System: Irregular rate and rhythm. GI System: Abdomen soft, nontender. Normo active bowel sounds present. Musculoskeletal System: limbs with no pedal edema. Full distal pulses. Heel protectors on. Bandage to the ulcerated second toe intact. Neurological System: No discernable sensory deficit. No aphasia Psychiatric System: Patient is hard of hearing. Results - Labs CBC & BMP: 11/24/16 03:36 11/24/16 03:36 Lab Results: I have reviewed the past 24 hour labs
--- NOTE | 2016-11-24 11:23 | Gastrointestinal Progress Note ---
<KathyAda Janis - Last Filed: 11/24/16 11:19> Assessment and Plan (1) Elevated LFTs Status: Acute Assessment and plan: 11/24-on last check LFTs were trending downward. Nothing further to add at this time regarding this. Plan and addendum to follow by Dr Tavarez 11/20-No changes in current status. No c/o abd pain. Tolerating tube feedings. No recheck on LFT. Plan and addendum to follow by Dr Tavarez. 11/18-LFTs essentially unchanged with bilirubin trending down slightly at 1.0. Tolerating tube feedings at present time. Continue to monitor. Plan addendum follow Dr. Tavarez 11/17-LFTs are trending down slowly at this time. No complaints of abdominal pain. NG tube is in place to start tube feedings following dietitian consult. Afebrile. Continue to monitor present time. Plan an addendum to follow by Dr. Tavarez. 11/14-no repeat LFTs today. Continued fever and elevation in WBCs noted. Gram- negative rods on preliminary UA. No complaints of pain. Recheck LFTs today continue to monitor at present time. Plan an addendum to follow by Dr. Tavarez. 11/13-One day history of changes in mental status from baseline, admitted with findings of sepsis, pneumonia and elevated LFT and cholelithiasis with dilated CBD on US. Febrile with gram positive cocci on preliminary wound culture. Currently on pressor support. Plan and addendum to follow by Dr Tavarez. Current Visit: Yes (2) Failure to thrive Status: Acute Assessment and plan: 11/24-Continued NG tube feedings, tolerated well at this time. Reconsult for possible PEG placement due to DNR with family wishes for aggressive medical care at present. Continued required Dopamine at low dose with cardiology consult for recommendations. Will discuss PEG placement further with granddaughter. Plan and addendum to follow by Dr Tavarez. Current Visit: Yes Gastroenterology - PN: Subj Interval history: CC: Failure to thrive Patient is seen, awake and alert and conversant. He answers questions appropriately and is fairly oriented at this time. He continues with NG tube feedings due to he has continued lack of appetite and refusal to eat. Patient remains in the ICU at this time due to difficulty weaning off of the dopamine. Cardiology is noted to have been consulted for recommendations regarding this. GI has been reconsulted for possible PEG tube placement at this time. Patient is a DNR however comfort measures have not been initiated due to family wants to continue to treat the patient as aggressive as possible at this time. Upon further discussion with the patient's nurse, his granddaughter, who is an employee of the hospital, seems to have unrealistic expectations of the patient' s recovery at this time and has questions regarding his care however she has not been available for further discussion at times when the physicians are rounding. Will try to meet with patient's granddaughter today further discussion prior to proceeding with PEG tube placement. Abdomen is soft, nontender. Chest x-ray shows improved CHF/pneumonia with small pleural effusions. ROS: Patient denies any shortness of breath or chest pain Exam (Progress Note) - Constitutional Vitals: Period Temp Pulse Resp BP Sys/Grimm Pulse Ox Last 24 Hr 97.7 F-99.6 F 85-116 10-25 87-134/48-84 92-100 General appearance: normal weight, no acute distress - Head Head exam: Present: normal inspection, normocephalic - Eye Eye exam: Present: other (Lids and conjunctivae are unremarkable). Absent: scleral icterus - ENT ENT exam: Present: normal exam, normal oropharynx - Neck Neck exam: Present: normal inspection - Respiratory Respiratory exam: Present: clear to auscultation bilaterally. Absent: rales, rhonchi, wheezes - Cardiovascular Cardiovascular exam: Present: regular rate and rhythm. Absent: diastolic murmur , JVD, systolic murmur - GI/Abdominal GI/Abdominal exam: Present: normal bowel sounds, soft. Absent: ascites, distended, mass, organomegaly, tenderness - Extremities Exam Extremities exam: Present: normal inspection, full ROM - Back Exam Back exam: Present: normal inspection - Neurological Exam Neurological exam: Present: alert, oriented X3 - Psychiatric Psychiatric exam: Present: normal affect, normal mood - Skin Skin exam: Present: normal color, warm, dry Results - Labs CBC & BMP: 11/24/16 03:36 11/24/16 03:36 Lab Results: I have reviewed the past 24 hour labs <Michelet Tavarez - Last Filed: 11/24/16 20:27> Exam (Progress Note) - Constitutional Vitals: Period Temp Pulse Resp BP Sys/Grimm Pulse Ox Last 24 Hr 97 F-98.7 F 73-116 10-25 77-134/45-77 91-100 Results - Labs CBC & BMP: 11/24/16 03:36 11/24/16 03:36
[2016-11-24] MEDS: DIGOXIN 0.125 MG TABLET PO SCH (13:36)
[2016-11-24] MEDS: DOPamine 800 MG/250 ML PREMIX IV SCH (15:51)
--- NOTE | 2016-11-24 16:09 | Cardiology Consult Note ---
<Carrie Gomes - Last Filed: 11/24/16 16:05> Assessment and Plan - Time spent with patient Time spent with patient: Greater than 30 minutes (1) Hypotension Status: Acute Assessment and plan: See plan of care listed below. Current Visit: Yes (2) Anemia Status: Acute Assessment and plan: See plan of care listed below. Current Visit: Yes (3) History of atrial fibrillation Status: Chronic Assessment and plan: See plan of care listed below. Current Visit: Yes (4) Acute on chronic diastolic (congestive) heart failure Status: Acute Assessment and plan: See plan of care listed below. Current Visit: Yes (5) RLL pneumonia Status: Acute Assessment and plan: See plan of care listed below. Current Visit: Yes Qualifiers: Pneumonia type: due to unspecified organism Qualified Code(s): J18.1 - Lobar pneumonia, unspecified organism (6) Dementia Status: Chronic Assessment and plan: See plan of care listed below. Current Visit: Yes Qualifiers: Dementia type: Alzheimer's disease (7) Ulcer of left second toe Status: Chronic Assessment and plan: See plan of care listed below. Current Visit: Yes Qualifiers: Non-pressure ulcer stage: unspecified non-pressure ulcer stage Qualified Code(s): L97.529 - Non-pressure chronic ulcer of other part of left foot with unspecified severity (8) Acute kidney injury superimposed on chronic kidney disease Problem details: Improving BUN and creatinine. Monitor BUN/Cr in am. Status: Resolved Assessment and plan: See plan of care listed below. Current Visit: Yes (9) Sepsis Status: Resolved Assessment and plan: See plan of care listed below. 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 Matos in the hospital in the remote past, never followed up in clinic Mr. Jensen is a 81 year old black male with a history of htn, afib, CHF, MA, stroke, dementia, and renal failure that presents to the ED via EMS for further evaluation of altered mental status. shelter resident. Patient has dementia. Therefore, majority of this information was obtained from medical records and nursing staff as there is no family at bedside. Unable to obtain review of systems. It does not appear that patient has history of CAD. No previous records of heart catheterizations. He was admitted to the CCU and has been treated for sepsis, right lower lobe pneumonia and hypotension. Per nursing staff, he has been on dopamine infusion since November. Nursing staff has attempted to titrate dopamine infusion off several times. After several hours off infusion, apparently his blood pressure will drop in the 70s. Subsequently, dopamine infusion was reinitiated. Patient is a DNR. His condition has been discussed with family members. At this time, they have decided to continue current care and have denied comfort measures. GI has been consulted for PEG tube placement in order for patient to be transferred to [facility]. According to nursing staff, patient can be accepted to [facility] with dopamine infusion if needed. Cardiology has now been consulted to further assist in weaning patient off dopamine infusion. Patient was seen and examined in the CCU. Patient is demented and unable to obtain review of systems. Patient is without complaints of chest pain, heaviness and tightness. Patient's dopamine has been titrated off approximately 10 minutes ago per nursing staff. Current systolic blood pressure ranging in the 120s. Currently receiving blood transfusion. It appears that patient condition may be improving. We will continue to follow along, monitor blood pressure and make additional recommendations. I will further discuss with Dr. Soriano and await his additional recommendations. ASSESSMENT/PLAN 1. SEPSIS - Resolved. 2. RLL PNEUMONIA - Management per attending. 3. HYPOTENSION, DIFFICULTY WEANING DOPAMINE - Dopamine has now been titrated off per nursing staff. Nurse reports that it has been off for approximately 10 minutes. Current systolic blood pressure 120 noted. It appears that patient condition may be improving. We will continue to follow along, monitor blood pressure and make additional recommendations. I will further discuss with Dr. Soriano and await his additional recommendations. Could consider adding Midodrine. 4. ACUTE ON CHRONIC KIDNEY INJURY SUPERIMPOSED ON CHRONIC KIDNEY DISEASE - Acute on chronic renal insufficiency likely due to hypotension. Renal function now within normal limits. Daily BMP. 5. DEMENTIA - Continue current plan of care. 6. ULCER OF LEFT SECOND TOE - Management per attending. 7. ACUTE ON CHRONIC DIASTOLIC CONGESTIVE HEART FAILURE - Echocardiogram reveals ejection fraction of 50% with grade 3 diastolic dysfunction. Chest x- ray today reveals improved heart failure. BNP improved to 1690 from admission. At this point, we will continue with IV Lasix. I will further discuss with Dr. Soriano and await his additional recommendations. 8. ANEMIA - H&H today 0.5 and 27.2. Currently receiving blood transfusion. Management per attending. Coumadin on hold. 9. HISTORY OF A FIB - Patient has history of A. fib and has been chronically anticoagulated with Coumadin. This is currently on hold due to significant anemia. Patient is currently in normal sinus rhythm. At this point we will continue digoxin and monitor him on the awake overnight monitor and make further recommendations as needed. CC: Rui Hernandez MD - Home Medications and Allergies Home Medications: Home Medications Medication Instructions Recorded Confirmed Type Acetaminophen 650 mg PO Q4H PRN 11/12/16 11/12/16 History Albuterol Sulfate [Proair Hfa] 2 puffs INH Q4H PRN 11/12/16 11/12/16 History Aspirin EC Tab 81 mg PO DAILY 11/12/16 11/12/16 History Dextromethorph/Quinidine 20-10 1 capsule PO BID 11/12/16 11/12/16 History [Nuedexta] Digoxin Tab [Lanoxin Tab] 0.125 mg PO 1200 11/12/16 11/12/16 History Donepezil HCl [Donepezil HCl] 10 mg PO BEDTIME 11/12/16 11/12/16 History Ferrous Sulfate 325 mg PO BID 11/12/16 11/12/16 History Fluticasone/Salmeterol 250-50 2 puff INH BID 11/12/16 11/12/16 History [Advair 250-50] Furosemide [Furosemide] 80 mg PO BID 11/12/16 11/12/16 History HydrOXYzine PAMOATE CAP [Vistaril 50 mg PO Q1H PRN 11/12/16 11/12/16 History Cap] Magnesium Hydroxide Susp [Milk of 30 ml PO DAILY 11/12/16 11/12/16 History Magnesia] Memantine HCl [Namenda XR] 28 mg PO BEDTIME 11/12/16 11/12/16 History Metoprolol Tartrate Tab [Lopressor 12.5 mg PO BID 11/12/16 11/12/16 History Tab] Multivit-Min/FA/Lycopen/Lutein 1 each PO DAILY 11/12/16 11/12/16 History [Centrum Silver Tablet] Nitroglycerin [Nitro-Bid 2% Oint] 1 applic TOP 0800,1400 11/12/16 11/12/16 History Omeprazole 20 mg PO DAILY 11/12/16 11/12/16 History Sacubitril/Valsartan [Entresto 49 1 tablet PO BID 11/12/16 11/12/16 History mg-51 mg Tablet] Simvastatin [Simvastatin] 10 mg PO BEDTIME 11/12/16 11/12/16 History Warfarin Sodium [Warfarin Sodium] 3 mg PO SUTUTHSA 11/12/16 11/12/16 History Warfarin Sodium [Warfarin Sodium] 4 mg PO MOWEFR 11/12/16 11/12/16 History Allergies/Adverse Reactions: Allergies Allergy/AdvReac Type Severity Reaction Status Date / Time No Known Allergies Allergy Verified 11/03/16 09:39 ROS unobtainable: due to dementia Medical,Surgical,& Family Hx - Medical History Cardio: History of: Cardiac Dysrhythmia (A. Fib), CHF, Hypertension Neurology: History of: Cerebrovascular Accident, Dementia HEENT: History of: Dental Problems (Missing uppers and lowers), Glaucoma Endocrine: History of: Dyslipidemia Respiratory: History of: COPD, Pulmonary Embolism Renal: History of: Renal Failure - Social History Smoking Status: Unknown if ever smoked Frequency of Alcohol Use: Unknown Type of Drug Use: Unknown Physical Examination Vital Signs Temp Pulse Resp BP Pulse Ox 101.3 F H 89 19 81/42 99 11/12/16 12:33 11/12/16 12:33 11/12/16 12:33 11/12/16 12:33 11/12/16 12:33 Exam: General: Frail. Elderly. Ill-appearing. HEENT: PERRL, normocephalic, atraumatic. Mucous membranes moist. No jaundice noted. Conjunctiva moist and clear, sclerae anicteric Neck: No JVD/HJR, no thyromegaly or lymphadenopathy noted. Cardiac: Regular rate and rhythm. No murmur rub or gallop. Lungs: Decreased breath sounds with mild rhonchi noted in bilateral bases. Requiring oxygen. Abdomen: Soft, bowel sounds normoactive. Nontender and nondistended. Extremities: No clubbing, cyanosis noted. No edema noted. Upper extremity pulses 2+. Lower extremity pulses 1+. Dressing noted to left second toe. Neuro: Awake and responsive but difficult to understand response to questions. Able to follow commands. Result/EKG - Labs CBC & BMP: 11/24/16 03:36 11/24/16 03:36 Lab Results: I have reviewed the past 24 hour labs Labs: Laboratory Results - last 24 hr 11/24/16 11/24/16 11/24/16 03:36 03:36 03:36 WBC RBC Hgb Hct MCV MCH MCHC RDW Plt Count MPV Neut % (Auto) Lymph % (Auto) Butts % (Auto) Eos % (Auto) Baso % (Auto) Neut # (Auto) Lymph # (Auto) Butts # (Auto) Eos # (Auto) Baso # (Auto) Immature Gran % Nucleated RBC % Immature Gran # Nucleated RBCs # INR 1.3 PT Patient/Control Mix 14.0 Sodium 141 Potassium 4.5 Chloride 106 Carbon Dioxide 29 Anion Gap 10.5 BUN 41 H Creatinine 1.20 GFR Calculation 65 BUN/Creatinine Ratio 34.00 H Glucose 86 Calculated Osmolality 289.3 Lactic Acid Calcium 8.1 L Phosphorus 2.2 L Magnesium 3.0 H 3.0 H Prealbumin 14.4 L Blood Type Antibody Screen Crossmatch 11/24/16 11/24/16 11/24/16 03:36 03:36 13:10 WBC 15.4 H RBC 2.82 L Hgb 8.5 L Hct 27.2 L MCV 96.5 MCH 30 MCHC 31.3 L RDW 15.5 Plt Count 333 MPV 10.4 Neut % (Auto) 83.6 H Lymph % (Auto) 6.5 L Butts % (Auto) 8.9 Eos % (Auto) 0.1 Baso % (Auto) 0.1 Neut # (Auto) 12.9 H Lymph # (Auto) 1.0 L Butts # (Auto) 1.4 H Eos # (Auto) 0.0 Baso # (Auto) 0.0 Immature Gran % 0.8 Nucleated RBC % 0.3 Immature Gran # 0.13 Nucleated RBCs # 0.04 INR PT Patient/Control Mix Sodium Potassium Chloride Carbon Dioxide Anion Gap BUN Creatinine GFR Calculation BUN/Creatinine Ratio Glucose Calculated Osmolality Lactic Acid 1.3 Calcium Phosphorus Magnesium Prealbumin Blood Type O NEGATIVE Antibody Screen Negative Crossmatch See Detail 11/24/16 Unknown WBC RBC Hgb Hct MCV MCH MCHC RDW Plt Count MPV Neut % (Auto) Lymph % (Auto) Butts % (Auto) Eos % (Auto) Baso % (Auto) Neut # (Auto) Lymph # (Auto) Butts # (Auto) Eos # (Auto) Baso # (Auto) Immature Gran % Nucleated RBC % Immature Gran # Nucleated RBCs # INR PT Patient/Control Mix Sodium Potassium Chloride Carbon Dioxide Anion Gap BUN Creatinine GFR Calculation BUN/Creatinine Ratio Glucose Calculated Osmolality Lactic Acid Calcium Phosphorus Magnesium Prealbumin Blood Type O NEGATIVE Antibody Screen Crossmatch <rCisthian Soriano - Last Filed: 11/24/16 18:52> History of Present Illness - Consult Narrative History of present illness: Mr. Jensen is a 81 year old male CC: Rui Hernandez MD Physical Examination Vital Signs Temp Pulse Resp BP Pulse Ox 101.3 F H 89 19 81/42 99 11/12/16 12:33 11/12/16 12:33 11/12/16 12:33 11/12/16 12:33 11/12/16 12:33 Result/EKG - Labs CBC & BMP: 11/24/16 03:36 11/24/16 03:36 Labs: Laboratory Results - last 24 hr 11/24/16 11/24/16 11/24/16 03:36 03:36 03:36 WBC RBC Hgb Hct MCV MCH MCHC RDW Plt Count MPV Neut % (Auto) Lymph % (Auto) Butts % (Auto) Eos % (Auto) Baso % (Auto) Neut # (Auto) Lymph # (Auto) Butts # (Auto) Eos # (Auto) Baso # (Auto) Immature Gran % Nucleated RBC % Immature Gran # Nucleated RBCs # INR 1.3 PT Patient/Control Mix 14.0 Sodium 141 Potassium 4.5 Chloride 106 Carbon Dioxide 29 Anion Gap 10.5 BUN 41 H Creatinine 1.20 GFR Calculation 65 BUN/Creatinine Ratio 34.00 H Glucose 86 Calculated Osmolality 289.3 Lactic Acid Calcium 8.1 L Phosphorus 2.2 L Magnesium 3.0 H 3.0 H Prealbumin 14.4 L Blood Type Antibody Screen Crossmatch 11/24/16 11/24/16 11/24/16 03:36 03:36 13:10 WBC 15.4 H RBC 2.82 L Hgb 8.5 L Hct 27.2 L MCV 96.5 MCH 30 MCHC 31.3 L RDW 15.5 Plt Count 333 MPV 10.4 Neut % (Auto) 83.6 H Lymph % (Auto) 6.5 L Butts % (Auto) 8.9 Eos % (Auto) 0.1 Baso % (Auto) 0.1 Neut # (Auto) 12.9 H Lymph # (Auto) 1.0 L Butts # (Auto) 1.4 H Eos # (Auto) 0.0 Baso # (Auto) 0.0 Immature Gran % 0.8 Nucleated RBC % 0.3 Immature Gran # 0.13 Nucleated RBCs # 0.04 INR PT Patient/Control Mix Sodium Potassium Chloride Carbon Dioxide Anion Gap BUN Creatinine GFR Calculation BUN/Creatinine Ratio Glucose Calculated Osmolality Lactic Acid 1.3 Calcium Phosphorus Magnesium Prealbumin Blood Type O NEGATIVE Antibody Screen Negative Crossmatch See Detail 11/24/16 Unknown WBC RBC Hgb Hct MCV MCH MCHC RDW Plt Count MPV Neut % (Auto) Lymph % (Auto) Butts % (Auto) Eos % (Auto) Baso % (Auto) Neut # (Auto) Lymph # (Auto) Butts # (Auto) Eos # (Auto) Baso # (Auto) Immature Gran % Nucleated RBC % Immature Gran # Nucleated RBCs # INR PT Patient/Control Mix Sodium Potassium Chloride Carbon Dioxide Anion Gap BUN Creatinine GFR Calculation BUN/Creatinine Ratio Glucose Calculated Osmolality Lactic Acid Calcium Phosphorus Magnesium Prealbumin Blood Type O NEGATIVE Antibody Screen Crossmatch
[2016-11-24] MEDS: DONEPEZIL 10 MG TABLET PO SCH (21:15)
[2016-11-25] MEDS: MEROPENEM 1,000 MG in SODIUM CHLORIDE 0.9% 100 ML IV SCH ×3 (03:36→18:09)
[2016-11-25 04:08] LABS: Basophils % 0.1 % (0.0-0.8); Eosinophils % 0.1 % (0.00-10.9); Hematocrit 35.3 VOL% (42.0-52.0); Hemoglobin 11.4 GM/DL (14.0-18.0); Immature Granulocytes Absolute 0.15 #; Lymphocytes # 1.3 10*3/uL (1.4-4.0); Lymphocytes % 8.9 % (21.2-54.2); Mean Corpuscular HGB Conc 32.3 GM/DL (32-36); Mean Corpuscular Hemoglobin 29 PG (27-34); Mean Corpuscular Volume 90.1 FL (87-102); Mean Platelet Volume 10.4 FL (9.6-12.0); Monocytes # 1.6 10*3/uL (0.11-0.8); NRBC # 0.09 10*3/uL; Neutrophils # 11.4 10*3/uL (1.4-7.4); Neutrophils % 78.9 % (38.7-73.9); Platelet Count 337 T/CUMM (130-400); Red Blood Count 3.92 MC/CUMM (3.8-5.5); Red Cell Distribution Width 18.6 % (9.3-17.3); White Blood Count 14.5 T/CUMM (4-12)
[2016-11-25 04:35] LABS: Calcium 8.2 MG/DL (8.5-10.1); Magnesium 2.9 MG/DL (1.8-2.4); Osmolality,Calculated 291.3 MOS/KG (273-304); Potassium 4.6 MMOL/L (3.5-5.1)
--- NOTE | 2016-11-25 07:48 | Pulmonology Progress Note ---
Pulmonary - PN: Subj Interval history: This 81-year-old man has dementia. He has congestive heart failure. We have diuresed him and his x-ray looks better. Oxygen saturation is improved as well. However patient remains somewhat hypotensive and is requiring low-dose dopamine. If that could be weaned he could be moved to the floor. 11/24/2016 patient responsive but difficult to understanding. Breathing appears better. Oxygen saturations look good. He is continuing to require low-dose dopamine for decreased cardiac output. Perhaps needs cardiology to see. 11/25/2016 patient now talking answering questions making good sense. Blood pressure stable off dopamine. X-ray shows mild right lower lobe infiltrate. Overall much improved. His diastolic congestive heart failure is controlled. Sepsis is controlled. Could be moved to the floor. From pulmonary standpoint he is stable. I will sign off. Please call if needed further. Exam (Progress Note) - Constitutional Vitals: Period Temp Pulse Resp BP Sys/Grimm Pulse Ox Last 24 Hr 97 F-98.7 F 73-102 10-21 90-133/45-79 91-100 Exam: Patient is responsive and his speech is much more lucid today. Systolic blood pressure is 100 off dopamine. Vital signs otherwise normal. Pupils react to light. Oral hygiene is poor. Neck is supple. Chest reveals a few basilar rhonchi otherwise clear. Heart normal rate, irregular rhythm no murmurs. Abdomen soft no masses. Liver edge is down. Extremities has 1+ peripheral edema. Has an NG tube and is tolerating feedings. Results - Labs CBC & BMP: 11/25/16 03:57 11/25/16 03:57 Lab Results: I have reviewed the past 24 hour labs - Diagnostic Findings Procedure: Chest x-ray: image reviewed by me (Patchy right mid to lower lung infiltrate. Overall improved.) Assessment and Plan (1) Acute on chronic diastolic (congestive) heart failure Status: Acute Assessment and plan: Patient's weight is up 15 kg from admission. Creatinine has fallen from 2.7- 1.0 with hydration. I think he is ahead on fluids. Recheck BMP. Diuresed. Reduce IV fluids. Echo showed normal LV ejection fraction but with pulmonary hypertension and left atrial enlargement and atrial fibrillation this is likely diastolic dysfunction. 11/23/2016 it appears that he diuresed yesterday although his weight is not different today. We will continue with Lasix alone longer. 11/24/16 hypoxemia has improved. Patient remains hypotensive. I think he is having forward failure. Cardiology consult may be helpful. 11/25/2016 congestive heart failure controlled. Up to normal. Current Visit: Yes (2) RLL pneumonia Status: Acute Assessment and plan: Healthcare facility acquired pneumonia. Seems to be clinically improved. No fever. Radiographic changes likely due to fluid. 11/23/2016 continuing antibiotics. Reduce steroids 11/24/2016 continuing antibiotics. Needs steroids to cover adrenal function. 11/25/2016 continuing antibiotics. We do have him on Solu-Cortef which may be the main reason that his blood pressure has come up. Would wean this slowly. Current Visit: Yes Qualifiers: Pneumonia type: due to unspecified organism Qualified Code(s): J18.1 - Lobar pneumonia, unspecified organism (3) Dementia Status: Chronic Assessment and plan: Patient not able to answer many healthcare questions 11/23/2016 difficult to follow his speech. 11/24/16 patient does respond but it is unclear what his answers are to questions. 11/25/2016 mental status appears much better today. Current Visit: Yes Qualifiers: Dementia type: Alzheimer's disease
--- NOTE | 2016-11-25 09:22 | Discharge Summary ---
<Rui Hernandez - Last Filed: 11/25/16 09:16> Hospital Course - Hospital Course Hospital Course: 81-year-old male admitted to the hospital with sepsis and hypotension secondary to urinary tract infection and pneumonia. The patient was found to have E. coli in the urine sensitive to Levaquin Merrem and Zosyn. He was also noted to have pneumonia on chest x-ray. He was started on empiric antibiotic therapy and required dopamine infusion for hypotension. He has a history of atrial fibrillation and was anticoagulated with Coumadin. He had a drop in his hemoglobin and required blood transfusions. Over the course of his 13 day hospitalization, the patient's mental status improved. On admission he was severely encephalopathic secondary to metabolic derangements related to sepsis. This improved with IV antibiotics and blood pressure support with dopamine. He did not have much of an appetite and was difficult to arouse and required NG tube placement for tube feedings and medications. He has tolerated tube feeds well. He is now off pressor support for the last 24 hours. His Coumadin had been held secondary to his anemia. The patient was seen in consultation by infectious disease, pulmonary, GI, cardiology during the course of this hospitalization. He is currently receiving Merrem for treatment of his pneumonia which is improving. He completed treatment for his E. coli urinary tract infection. His mental status has improved. He is arousable and answers questions appropriately. He does have underlying dementia and was a resident of [facility] prior to this hospitalization. If his appetite does not improve and he is unable to maintain adequate caloric intake via oral route , the family has requested that we pursue PEG tube placement in the near future. The patient was followed by Dr. Tavarez during the course of this hospitalization. The goal will be to discharge him back to the [place] [facility] [place], [facility], once he has improved. His healthcare surrogate and primary decision maker is his granddaughter Soraya who works in the lab at [facility]. The patient is a DNR. His medications were reviewed and reconciled. Coumadin has been held in anticipation of possible PEG tube placement in the near future. Aspirin was continued. Addendum: This patient had been transferred from the intensive care unit on 26 November. I will been admitted to the intensive care unit with severe associated sepsis hypertension urinary tract infection. Please refer to the notes from the intensive care unit for those details. Is on 2 is the major issue was trying to optimize patient's nutritional status. On the he was poorly responsive had an NG tube that I decided to feeding with bolus feedings and supplemented with oral feedings. By the 20 face patient was much awake and very cantankerous refusing to have the NG tube in. Overnight he had pulled out NG tube and poor pulled out his IJ line. His white count is normal he is afebrile when he is cooperative was able to eat up to 50% of his meals. I discussed with him regarding need to have the PEG tube if nutrition no intake with oral feedings and inadequate, patient is clearly against this idea. I offered to discuss it with his granddaughter who is the on the patient on record a patient in the cussing way told me, "no; get out of here you m--- f----." I asked him to be able to eat you for sending back to the [place] [facility], he said "yes it can and I have been." Patient had a lot of cursing words to me and I am told to the male nurse that is taking care of him today. He is able to answer questions he is awake. Patient will therefore be sent back to the [place] [facility]. There will hold his bed there. Been living here today. - Time spent with patient Time with patient DS: Greater than 30 minutes (Total discharge time for this patient, including iupy-[id number] time, clinical documentation, medication reconciliation, and discharge planning was 42 minutes) Diagnosis - Discharge Diagnosis (1) RLL pneumonia Status: Acute (2) Dementia Status: Chronic (3) Hyperbilirubinemia Status: Resolved (4) Sepsis Status: Resolved (5) Ulcer of left second toe Status: Chronic (6) Acute kidney injury superimposed on chronic kidney disease Status: Resolved (8) Lactic acidosis Status: Inactive (9) Metabolic encephalopathy Status: Inactive (10) Hypernatremia Status: Inactive Discharge Plan - Discharge Data Disposition: Disch/Xfer to [facility] Condition at Discharge: Stable Discharge Diet: other (Continue tube feed diet and advance as tolerated) Activity: as per physical therapy Hygiene: no restrictions Contact your physician if you experience:: fever over 101, Shortness of breath - Discharge Medications New Albuterol Neb [Proventil Neb] 2.5 mg RESP TX RT Q1H PRN PRN Reason: Shortness Of Breath/Wheezing Albuterol Neb [Proventil Neb] 2.5 mg RESP TX RT Q4H PRN PRN Reason: Shortness Of Breath/Wheezing Digoxin Tab [Lanoxin Tab] 0.125 mg PO 1200 tablet Donepezil [Aricept] 10 mg PO BEDTIME tablet Fluticasone/Salmeterol 250-50 [Advair 250-50] 2 puff INH BID HYDROcodone/ACETAMIN 5-325 [Whiting 5-325] 1 tablet PO Q4H PRN tablet PRN Reason: Pain Moderate (4-7) Hydrocortisone Inj [SoluCORTEF] 50 mg IV Q12H vial Meropenem [Merrem] 1,000 mg IV Q8H vial Simvastatin [Zocor] 10 mg PO BEDTIME tablet Ferrous Sulfate Tab [Feosol Original Tab] 325 mg PO BID tablet Memantine [Namenda] 10 mg PO BID tablet Warfarin [Coumadin] 3 mg PO SUTUTHSA tablet Continue Multivit-Min/FA/Lycopen/Lutein [Centrum Silver Tablet] 1 each PO DAILY Aspirin EC Tab 81 mg PO DAILY Dextromethorph/Quinidine 20-10 [Nuedexta] 1 capsule PO BID Warfarin Sodium 4 mg PO MOWEFR Discontinued Albuterol Sulfate [Proair Hfa] 2 puffs INH Q4H PRN PRN Reason: Shortness Of Breath/Wheezing Donepezil HCl [Donepezil HCl] 10 mg PO BEDTIME Simvastatin [Simvastatin] 10 mg PO BEDTIME Nitroglycerin [Nitro-Bid 2% Oint] 1 applic TOP 0800,1400 HydrOXYzine PAMOATE CAP [Vistaril Cap] 50 mg PO Q1H PRN PRN Reason: Agitation Omeprazole 20 mg PO DAILY Sacubitril/Valsartan [Entresto 49 mg-51 mg Tablet] 1 tablet PO BID Furosemide [Furosemide] 80 mg PO BID Memantine HCl [Namenda XR] 28 mg PO BEDTIME Warfarin Sodium [Warfarin Sodium] 3 mg PO SUTUTHSA Digoxin Tab [Lanoxin Tab] 0.125 mg PO 1200 Fluticasone/Salmeterol 250-50 [Advair 250-50] 2 puff INH BID Metoprolol Tartrate Tab [Lopressor Tab] 12.5 mg PO BID Ferrous Sulfate 325 mg PO BID Magnesium Hydroxide Susp [Milk of Magnesia] 30 ml PO DAILY Acetaminophen 650 mg PO Q4H PRN PRN Reason: Fever, Headache, Mild Pain - Follow Up or Referral - Forms/Instructions Exam - Constitutional Vitals: Period Temp Pulse Resp BP Sys/Grimm Pulse Ox Last 24 Hr 97.9 F-98.6 F 65-89 16-20 105-110/58-70 92-98 DS: Provider Date of admission: 11/12/16 13:57 Primary care physician: . No PCP Attending physician on admission: Rui Hernandez MD Consults: 11/12/16 15:52 Consult to Pharmacy [CONS] Routine Reason for Pharmacy Consult: Adjust Meds Renal Funct Consult to Wound Care - [place] [CONS] Routine Reason for Wound Care: Wound Care Management 11/12/16 16:12 Consult to Dietitian [CONS] Routine Reason for Dietitian: Dietary Consult 11/12/16 17:39 Consult to Physician [CONS] Routine Comment: gallstones Consulting Provider: Michelet Tavarez When should Consulting Provider be notified: In am Person Notified: camille Date Notified: 11/13/16 Time Notified: 09:15 11/16/16 13:38 Consult to Dietitian [CONS] Routine Reason for Dietitian: TF-Initiate/Manage 11/16/16 13:39 Consult to Physician [CONS] Routine Comment: Consulting Provider: Zhanna Fierro Consulting Provider Notified: No When should Consulting Provider be notified: In am Person Notified: johana Date Notified: 11/17/16 Time Notified: 09:41 11/17/16 14:27 Consult to Dietitian [CONS] Routine Reason for Dietitian: TF-Initiate/Manage 11/21/16 08:28 Consult to Physical Therapy [CONS] Routine Reason for Physical Therapy: Evaluate and Treat 11/21/16 11:45 Consult to Pharmacy [CONS] Routine Reason for Pharmacy Consult: Other Comment: Discontinue levofloxacin and Zosyn tomorrow 11/22/16 11:16 Consult to Physician [CONS] Routine Comment: Worsening pneumonia Consulting Provider: Antonio Barnes 11/24/16 07:48 Consult to Physician [CONS] Routine Comment: hypotension requiring dopamine Consulting Provider: Cardiology - [facility] 11/24/16 09:56 Consult to Case Mgmt/Social Srvs [CONS] Routine Reason for Case Mgmt/Social Srvs: LTAC 11/27/16 10:46 Consult to Dietitian [CONS] Routine Reason for Dietitian: Dietary Consult Consult Comment: oral calorie count and advise 11/30/16 09:21 Consult to Case Mgmt/Social Srvs [CONS] Routine Reason for Case Mgmt/Social Srvs: Discharge Planning Discharging clinician: Rui Hernandez MD Expected date of discharge: 11/25/16 <Maik Warren - Last Filed: 11/30/16 10:22> Diagnosis - Discharge Diagnosis (1) Severe sepsis Status: Acute (2) Healthcare-associated pneumonia Status: Acute
--- NOTE | 2016-11-25 09:33 | Hospitalist Progress Note ---
Assessment and Plan (1) RLL pneumonia Status: Acute Assessment and plan: Merrem continued Current Visit: Yes Qualifiers: Pneumonia type: due to unspecified organism Qualified Code(s): J18.1 - Lobar pneumonia, unspecified organism (2) Dementia Status: Chronic Current Visit: Yes Qualifiers: Dementia type: Alzheimer's disease (3) Hyperbilirubinemia Status: Resolved Current Visit: Yes (4) Sepsis Status: Resolved Current Visit: Yes Qualifiers: Sepsis type: sepsis due to unspecified organism Qualified Code(s): A41.9 - Sepsis, unspecified organism (5) Ulcer of left second toe Status: Chronic Current Visit: Yes Qualifiers: Non-pressure ulcer stage: unspecified non-pressure ulcer stage Qualified Code(s): L97.529 - Non-pressure chronic ulcer of other part of left foot with unspecified severity (6) Acute kidney injury superimposed on chronic kidney disease Problem details: Improving BUN and creatinine. Monitor BUN/Cr in am. Status: Resolved Current Visit: Yes Hospitalist: Subjective Interval history: Patient seen and examined. No acute events overnight. Case discussed with nursing staff. Labs reviewed. The patient was successfully weaned off dopamine overnight. He reports improving appetite this morning. Exam - Constitutional Vitals: Period Temp Pulse Resp BP Sys/Grimm Pulse Ox Last 24 Hr 97.6 F-98.7 F 73-102 10-21 90-133/45-79 91-100 Exam: Constitutional System: No distress. No tremulousness. Head: Normocephalic, atraumatic. Ears, Nose and Throat System: No pain or tenderness. No epistaxis or discharge. NG tube in place Eyes System: Pupils equal, round, and reactive. Extraocular muscles intact. Neck: Supple, without adenopathy, No jugular venous distention. Respiratory System: Chest clear bilaterally to auscultation. Cardiovascular System: Irregular rate and rhythm. GI System: Abdomen soft, nontender. Normo active bowel sounds present. Musculoskeletal System: limbs with no pedal edema. Full distal pulses. Heel protectors on. Bandage to the ulcerated second toe intact. Neurological System: No discernable sensory deficit. No aphasia Psychiatric System: Patient is hard of hearing. Results - Labs CBC & BMP: 11/25/16 03:57 11/25/16 03:57 Lab Results: I have reviewed the past 24 hour labs
[2016-11-25] MEDS: FERROUS SULFATE 325 MG TABLET PO SCH ×2 (10:12→20:54)
[2016-11-25] MEDS: HYDROCORTISONE 100 MG VIAL IV SCH ×2 (10:12→18:41)
[2016-11-25] MEDS: MEMANTINE 10 MG TABLET PO SCH ×2 (10:12→20:55)
[2016-11-25] MEDS: LANSOPRAZOLE ODT 30 MG TABLET PER TUBE SCH (10:12)
[2016-11-25] MEDS: FLUTICASONE/SALMETEROL 250-50 DISKUS 14 DOSE INH SCH ×2 (10:12→20:54)
[2016-11-25] MEDS: DIGOXIN 0.125 MG TABLET PO SCH (11:20)
--- NOTE | 2016-11-25 12:00 | Gastrointestinal Progress Note ---
<Ada Chavez - Last Filed: 11/25/16 11:58> Assessment and Plan (1) Failure to thrive Status: Acute Assessment and plan: 11/25-off pressor support. To be transferred to the floor. No plans for PEG placement at this time. Plan an addendum to follow Dr. Corby rodriguez 11/24-Continued NG tube feedings, tolerated well at this time. Reconsult for possible PEG placement due to DNR with family wishes for aggressive medical care at present. Continued required Dopamine at low dose with cardiology consult for recommendations. Will discuss PEG placement further with granddaughter. Plan and addendum to follow by Dr Tavarez. Current Visit: Yes Gastroenterology - PN: Subj Interval history: CC: Failure to thrive Patient is seen, awake and alert with family at bedside. He had an uneventful night. He was able to be weaned off of the dopamine and at this time his pressures remained stable. He is eating very small amounts by mouth however continue with his tube feedings which he is tolerating well. Patient's granddaughter at bedside and discussed proceeding with PEG placement however she feels she does not want to do this at this time. She does state that patient has difficulty taking his pills at times and and refuses to take them when [facility]. At this time, after further discussion, we will not proceed with PEG tube placement however discussed with granddaughter that if his nutritional status declines farther and they would like to proceed with PEG tube placement at a later date, we will do so then. Abdomen is soft, nontender ROS: Denies shortness of breath or chest pain Exam (Progress Note) - Constitutional Vitals: Period Temp Pulse Resp BP Sys/Grimm Pulse Ox Last 24 Hr 97.6 F-98.7 F 73-102 10-25 90-124/46-79 93-100 General appearance: normal weight, no acute distress - Head Head exam: Present: normal inspection, normocephalic - Eye Eye exam: Present: other (Lids and conjunctivae are unremarkable). Absent: scleral icterus - ENT ENT exam: Present: normal exam, normal oropharynx - Neck Neck exam: Present: normal inspection - Respiratory Respiratory exam: Present: clear to auscultation bilaterally. Absent: rales, rhonchi, wheezes - Cardiovascular Cardiovascular exam: Present: regular rate and rhythm. Absent: diastolic murmur , JVD, systolic murmur - GI/Abdominal GI/Abdominal exam: Present: normal bowel sounds, soft. Absent: ascites, distended, mass, organomegaly, tenderness - Extremities Exam Extremities exam: Present: normal inspection, full ROM - Back Exam Back exam: Present: normal inspection - Neurological Exam Neurological exam: Present: alert, altered - Psychiatric Psychiatric exam: Present: normal affect, normal mood - Skin Skin exam: Present: normal color, warm, dry Results - Labs CBC & BMP: 11/25/16 03:57 11/25/16 03:57 Lab Results: I have reviewed the past 24 hour labs <Michelet Tavarez - Last Filed: 11/25/16 17:02> Exam (Progress Note) - Constitutional Vitals: Period Temp Pulse Resp BP Sys/Grimm Pulse Ox Last 24 Hr 97.6 F-98.7 F 73-102 10-29 92-177/51-103 90-100 Results - Labs CBC & BMP: 11/25/16 03:57 11/25/16 03:57
[2016-11-25] MEDS ORDERED: MEGESTROL 400 MG/10 ML UDCUP ONE (12:13)
[2016-11-25] MEDS: DOPamine 800 MG/250 ML PREMIX IV SCH (16:44)
[2016-11-25] MEDS: MEGESTROL 400 MG/10 ML UDCUP PO SCH (20:54)
[2016-11-25] MEDS: DONEPEZIL 10 MG TABLET PO SCH (20:54)
[2016-11-26] MEDS: MEROPENEM 1,000 MG in SODIUM CHLORIDE 0.9% 100 ML IV SCH ×3 (03:13→19:19)
[2016-11-26 04:59] LABS: Basophils % 0.1 % (0.0-0.8); Hematocrit 33.8 VOL% (42.0-52.0); Hemoglobin 10.9 GM/DL (14.0-18.0); Immature Granulocytes % 0.9 %; Immature Granulocytes Absolute 0.13 #; Lymphocytes # 0.8 10*3/uL (1.4-4.0); Lymphocytes % 5.8 % (21.2-54.2); Mean Corpuscular HGB Conc 32.2 GM/DL (32-36); Mean Corpuscular Hemoglobin 29 PG (27-34); Mean Corpuscular Volume 90.9 FL (87-102); Mean Platelet Volume 10.8 FL (9.6-12.0); Monocytes # 0.9 10*3/uL (0.11-0.8); Monocytes % 6.4 % (1.7-12.7); Neutrophils # 12.4 10*3/uL (1.4-7.4); Neutrophils % 86.8 % (38.7-73.9); Platelet Count 350 T/CUMM (130-400); Red Blood Count 3.72 MC/CUMM (3.8-5.5); Red Cell Distribution Width 18.2 % (9.3-17.3); White Blood Count 14.3 T/CUMM (4-12)
[2016-11-26 05:28] LABS: Calcium 7.9 MG/DL (8.5-10.1); Magnesium 2.9 MG/DL (1.8-2.4); Osmolality,Calculated 296.1 MOS/KG (273-304); Potassium 4.9 MMOL/L (3.5-5.1)
[2016-11-26] MEDS: MEGESTROL 400 MG/10 ML UDCUP PO SCH ×2 (09:13→20:28)
[2016-11-26] MEDS: FERROUS SULFATE 325 MG TABLET PO SCH ×2 (09:13→20:29)
[2016-11-26] MEDS: MEMANTINE 10 MG TABLET PO SCH ×2 (09:13→20:29)
[2016-11-26] MEDS: LANSOPRAZOLE ODT 30 MG TABLET PER TUBE SCH (09:13)
[2016-11-26] MEDS: FLUTICASONE/SALMETEROL 250-50 DISKUS 14 DOSE INH SCH ×2 (09:14→20:29)
[2016-11-26] MEDS: HYDROCORTISONE 100 MG VIAL IV SCH ×2 (09:20→20:28)
--- NOTE | 2016-11-26 09:57 | Hospitalist Progress Note ---
Assessment and Plan (1) RLL pneumonia Status: Acute Assessment and plan: Merrem continued Current Visit: Yes Qualifiers: Pneumonia type: due to unspecified organism Qualified Code(s): J18.1 - Lobar pneumonia, unspecified organism (2) Dementia Status: Chronic Current Visit: Yes Qualifiers: Dementia type: Alzheimer's disease (3) Hyperbilirubinemia Status: Resolved Current Visit: Yes (4) Sepsis Status: Resolved Current Visit: Yes Qualifiers: Sepsis type: sepsis due to unspecified organism Qualified Code(s): A41.9 - Sepsis, unspecified organism (5) Ulcer of left second toe Status: Chronic Current Visit: Yes Qualifiers: Non-pressure ulcer stage: unspecified non-pressure ulcer stage Qualified Code(s): L97.529 - Non-pressure chronic ulcer of other part of left foot with unspecified severity (6) Acute kidney injury superimposed on chronic kidney disease Problem details: Improving BUN and creatinine. Monitor BUN/Cr in am. Status: Resolved Current Visit: Yes (7) History of atrial fibrillation Status: Chronic Assessment and plan: Remains rate controlled. Off anticoagulation due to anemia. Current Visit: Yes Hospitalist: Subjective Interval history: Mr. Jensen is doing well. He has been off dopamine for greater than 36 hours. His blood pressure is holding stable. His appetite is improving. A PEG tube has been put off for now. Plan to transfer him to the floor today. Exam - Constitutional Vitals: Period Temp Pulse Resp BP Sys/Grimm Pulse Ox Last 24 Hr 97.6 F-99.0 F 75-105 10-29 94-177/48-103 90-100 Exam: Constitutional System: No distress. No tremulousness. Head: Normocephalic, atraumatic. Ears, Nose and Throat System: No pain or tenderness. No epistaxis or discharge. NG tube in place Eyes System: Pupils equal, round, and reactive. Extraocular muscles intact. Neck: Supple, without adenopathy, No jugular venous distention. Respiratory System: Chest clear bilaterally to auscultation. Cardiovascular System: Irregular rate and rhythm. GI System: Abdomen soft, nontender. Normo active bowel sounds present. Musculoskeletal System: limbs with no pedal edema. Full distal pulses. Heel protectors on. Bandage to the ulcerated second toe intact. Neurological System: No discernable sensory deficit. No aphasia Psychiatric System: Patient is hard of hearing. Results - Labs CBC & BMP: 11/26/16 04:22 11/26/16 04:22 Lab Results: I have reviewed the past 24 hour labs
[2016-11-26] MEDS: DIGOXIN 0.125 MG TABLET PO SCH (12:30)
[2016-11-26] MEDS: DOPamine 800 MG/250 ML PREMIX IV SCH (14:29)
[2016-11-26] MEDS: SIMVASTATIN 10 MG TABLET PO SCH (20:29)
[2016-11-26] MEDS: DONEPEZIL 10 MG TABLET PO SCH (20:29)
[2016-11-27] MEDS: MEROPENEM 1,000 MG in SODIUM CHLORIDE 0.9% 100 ML IV SCH ×3 (02:37→21:12)
[2016-11-27] MEDS: HYDROCORTISONE 100 MG VIAL IV SCH ×2 (10:07→21:11)
[2016-11-27] MEDS: LANSOPRAZOLE ODT 30 MG TABLET PER TUBE SCH (10:09)
[2016-11-27] MEDS: MEGESTROL 400 MG/10 ML UDCUP PO SCH ×2 (10:10→21:11)
[2016-11-27] MEDS: MEMANTINE 10 MG TABLET PO SCH ×2 (10:10→21:12)
[2016-11-27] MEDS: FERROUS SULFATE 325 MG TABLET PO SCH ×2 (10:10→21:11)
[2016-11-27] MEDS: ASPIRIN CHEW 81 MG TABLET PO SCH (10:11)
[2016-11-27] MEDS: FLUTICASONE/SALMETEROL 250-50 DISKUS 14 DOSE INH SCH ×2 (10:11→21:14)
--- NOTE | 2016-11-27 14:15 | Hospitalist Progress Note ---
Assessment and Plan (1) Severe sepsis Status: Acute Assessment and plan: Patient blood pressures do not know much and he is now making urine with a [place] catheter in place. Reportedly patient is quite oliguric most likely retentive of urine. Continue follow for the meantime follow-up on cultures Current Visit: Yes (2) PAD (peripheral artery disease) Status: Acute Assessment and plan: Obtain arterial Doppler of both legs and also ankle-brachial indices. Read by the patient according upon receiving the reports of the studies Current Visit: Yes (3) Leg weakness Status: Acute Assessment and plan: As above; I suspect arterial insufficiency something to do with this. Vision could also have spinal stenosis. Current Visit: Yes (4) Bilateral leg weakness Status: Acute Assessment and plan: As above Current Visit: Yes (5) Left lower lobe pneumonia Status: Acute Assessment and plan: Continue antibiotics Current Visit: Yes Hospitalist: Subjective Interval history: Patient has been seen interviewed and examined and chart has been reviewed. A 1 -year-old gentleman admitted to the hospital with hypotension suggestive septic shock and severe sepsis found to have pneumonia in the left lower lobe. Patient was also did have some renal dysfunction. This is since resolved. She is able to communicate with me clearly. She states that as of late she has not been able to weight-bear because the legs are very weak. I noticed that circulation in the leg is very poor with the poor discernment of posterior tibial and dorsalis pedis on the right and a weak dorsalis pedis on the left. Dr. Gomez find these pulses with the Doppler. Exam - Constitutional Vitals: Period Temp Pulse Resp BP Sys/Grimm Pulse Ox Last 24 Hr 98 F-98.6 F 60-103 14-20 104-118/55-74 91-100 General appearance: normal weight - Head Head exam: Present: normocephalic, atraumatic - Eye Eye exam: Present: EOMI Pupils: Present: ROHINI - ENT ENT exam: Present: normal exam - Neck Neck exam: Present: normal inspection - Respiratory Respiratory exam: Present: clear to auscultation bilaterally - Cardiovascular Cardiovascular exam: Present: regular rate and rhythm - GI/Abdominal GI/Abdominal exam: Present: normal bowel sounds, soft - Extremities Exam Extremities exam: Present: other (Generalized weakness can not doing laser legs against gravity. Very posterior tibial pedis pulse on the right very weak studies but is bilateral) - Neurological Exam Neurological exam: Present: alert, oriented X3, CN II-XII intact - Psychiatric Psychiatric exam: Present: normal affect, normal mood - Skin Skin exam: Present: normal color, dry Results - Labs CBC & BMP: 11/26/16 04:22 11/26/16 04:22 Lab Results: I have reviewed the past 24 hour labs
[2016-11-27] MEDS: DIGOXIN 0.125 MG TABLET PO SCH (14:34)
[2016-11-27] MEDS: DONEPEZIL 10 MG TABLET PO SCH (21:11)
[2016-11-27] MEDS: SIMVASTATIN 10 MG TABLET PO SCH (21:12)
[2016-11-28] MEDS: MEROPENEM 1,000 MG in SODIUM CHLORIDE 0.9% 100 ML IV SCH ×3 (05:41→21:23)
[2016-11-28] MEDS: HYDROCORTISONE 100 MG VIAL IV SCH ×2 (08:42→18:41)
[2016-11-28] MEDS: MEGESTROL 400 MG/10 ML UDCUP PO SCH ×2 (08:43→21:22)
[2016-11-28] MEDS: MEMANTINE 10 MG TABLET PO SCH ×2 (08:43→21:22)
[2016-11-28] MEDS: FERROUS SULFATE 325 MG TABLET PO SCH ×2 (08:43→21:22)
[2016-11-28] MEDS: LANSOPRAZOLE ODT 30 MG TABLET PER TUBE SCH (08:43)
[2016-11-28] MEDS: FLUTICASONE/SALMETEROL 250-50 DISKUS 14 DOSE INH SCH ×2 (08:43→21:24)
[2016-11-28] MEDS: ASPIRIN CHEW 81 MG TABLET PO SCH (08:43)
[2016-11-28] MEDS: DESITIN 4OZ/NYSTATIN 15 GRAM MIXTURE PASTE TOP SCH ×2 (08:44→21:24)
[2016-11-28] MEDS: DIGOXIN 0.125 MG TABLET PO SCH (12:30)
--- NOTE | 2016-11-28 12:53 | Hospitalist Progress Note ---
Assessment and Plan (1) Severe sepsis Status: Acute Assessment and plan: Current blood pressures are optimal. Patient nutritional status is still suboptimal as mentioned above plan to improve her nutrition method to consider PEG tube coming Thursday Current Visit: Yes (2) Healthcare-associated pneumonia Status: Acute Assessment and plan: Continue antibiotics in the meantime. We will see the patient in the morning. A chest x-ray over the weekend. Current Visit: Yes Hospitalist: Subjective Interval history: Patient has been seen interviewed and examined and chart has been reviewed. He remains rather moribund try to feed him by mouth and on about a third of food that is supposed to have been eaten. Is also getting bolus tube feedings. Assist the patient on Thursday for possibility of discussing PEG tube if he does not improve over the weekend the PEG tube with 1 hour to maintain his nutrition Exam - Constitutional Vitals: Period Temp Pulse Resp BP Sys/Grimm Pulse Ox Last 24 Hr 97.5 F-98.3 F 70-95 16-21 98-123/56-66 96-99 General appearance: normal weight, other (Sleepy but able to be allows and can answer questions slowly hypophonia) - Head Head exam: Present: normocephalic, atraumatic - Eye Eye exam: Present: EOMI, other (Anicteric sclera) Pupils: Present: ROHINI - ENT ENT exam: Present: other (NG tube in) - Respiratory Respiratory exam: Present: clear to auscultation bilaterally - Cardiovascular Cardiovascular exam: Present: irregular rhythm, other (Monitor shows premature ventricular complexes and I see 1 ventricular couplet) - GI/Abdominal GI/Abdominal exam: Present: normal bowel sounds, soft - Extremities Exam Extremities exam: Present: other (Generalized weakness no edema) - Neurological Exam Neurological exam: Present: other (Slow responses but appropriate patient in physical deconditioning) - Skin Skin exam: Present: normal color, warm, dry Results - Labs CBC & BMP: 11/26/16 04:22 11/26/16 04:22 Lab Results: I have reviewed the past 24 hour labs
[2016-11-28] MEDS: SIMVASTATIN 10 MG TABLET PO SCH (21:22)
[2016-11-28] MEDS: DONEPEZIL 10 MG TABLET PO SCH (21:22)
[2016-11-29] MEDS: MEROPENEM 1,000 MG in SODIUM CHLORIDE 0.9% 100 ML IV SCH (05:17)
[2016-11-29 07:02] LABS: Basophils % 0.1 % (0.0-0.8); Hematocrit 35.8 VOL% (42.0-52.0); Hemoglobin 11.2 GM/DL (14.0-18.0); Immature Granulocytes % 1.1 %; Immature Granulocytes Absolute 0.12 #; Lymphocytes # 0.7 10*3/uL (1.4-4.0); Lymphocytes % 6.4 % (21.2-54.2); Mean Corpuscular HGB Conc 31.3 GM/DL (32-36); Mean Corpuscular Hemoglobin 30 PG (27-34); Mean Corpuscular Volume 94.7 FL (87-102); Mean Platelet Volume 10.7 FL (9.6-12.0); Monocytes % 9.4 % (1.7-12.7); NRBC # 0.02 10*3/uL; Neutrophils # 9.1 10*3/uL (1.4-7.4); Platelet Count 387 T/CUMM (130-400); Red Blood Count 3.78 MC/CUMM (3.8-5.5); Red Cell Distribution Width 19.6 % (9.3-17.3); White Blood Count 10.9 T/CUMM (4-12)
[2016-11-29 07:35] LABS: Calcium 8.1 MG/DL (8.5-10.1); Magnesium 2.9 MG/DL (1.8-2.4); Osmolality,Calculated 294.8 MOS/KG (273-304)
[2016-11-29] MEDS: FERROUS SULFATE 325 MG TABLET PO SCH ×2 (09:29→20:38)
[2016-11-29] MEDS: MEGESTROL 400 MG/10 ML UDCUP PO SCH ×2 (09:29→20:38)
--- NOTE | 2016-11-29 09:29 | XRay Report ---
XR chest 1V portable Indication: Pneumonia Comparison: 23 November 2016 Findings: The heart and mediastinum are stable in size and configuration. Right internal jugular catheter and NG tube have been removed. The pulmonary vascularity is prominent but similar to previous exam. No lung infiltrates, effusions, pneumothorax or other abnormality is demonstrated. Impression: Removal of support structures. No other significant changes. PROCEDURE INTERPRETED AT [facility] DEPARTMENT OF RADIOLOGY Final Report Signed by: Dr. Jasvir Tobias
[2016-11-29] MEDS: LANSOPRAZOLE ODT 30 MG TABLET PER TUBE SCH (09:30)
[2016-11-29] MEDS: MEMANTINE 10 MG TABLET PO SCH ×2 (09:30→20:38)
[2016-11-29] MEDS: ASPIRIN CHEW 81 MG TABLET PO SCH (09:30)
[2016-11-29] MEDS: HYDROCORTISONE 100 MG VIAL IV SCH ×2 (09:32→20:38)
[2016-11-29] MEDS: FLUTICASONE/SALMETEROL 250-50 DISKUS 14 DOSE INH SCH ×2 (09:40→20:38)
[2016-11-29] MEDS: DESITIN 4OZ/NYSTATIN 15 GRAM MIXTURE PASTE TOP SCH ×2 (09:41→20:40)
--- NOTE | 2016-11-29 10:33 | Hospitalist Progress Note ---
Assessment and Plan (1) Severe sepsis Status: Acute Assessment and plan: Current blood pressures are optimal. Patient nutritional status is still suboptimal as mentioned above plan to improve her nutrition method to consider PEG tube coming Thursday. Observe this morning that he is eating a bit more he pulled out his NG tube. I will let him eat by mouth. Make a decision on PEG on no PEG on Thursday. Will need to talk to his family for this. Current Visit: Yes (2) Healthcare-associated pneumonia Status: Acute Assessment and plan: This is treated sufficient to discontinue oral antibiotics at this time Current Visit: Yes Hospitalist: Subjective Interval history: Patient has been seen interviewed and examined and chart has been reviewed. Distal leg is quite animated today very cantankerous does not want follow through with instruction. This patient before today could hardly answer questions looked very weak. Overnight he pulled out his IJ IV line and pulled out his nasogastric tube. He does not want a nasogastric tube put in. He has an INT in the left antebrachium which can be used. She ate 50% of his breakfast and hopefully for be eating more. As he gets to be more related get him out of bed to chair. Possibly can avoid the PEG tube this coming Thursday. He is to send him back to his place of residence Exam - Constitutional Vitals: Period Temp Pulse Resp BP Sys/Grimm Pulse Ox Last 24 Hr 97.2 F-98.9 F 62-90 16-24 98-121/57-66 93-99 General appearance: normal weight, other (Very disagreeable this morning answers questions appropriately however) - Head Head exam: Present: normocephalic, atraumatic - Eye Eye exam: Present: EOMI Pupils: Present: ROHINI - ENT ENT exam: Present: normal exam - Neck Neck exam: Present: other (Supple neck no adenopathy) - Respiratory Respiratory exam: Present: clear to auscultation bilaterally - Cardiovascular Cardiovascular exam: Present: regular rate and rhythm - Extremities Exam Extremities exam: Present: other (Generalized weakness) - Neurological Exam Neurological exam: Present: other (Oriented to person not to time and place) - Psychiatric Psychiatric exam: Present: other (Possible dementia) - Skin Skin exam: Present: normal color, warm, dry Results - Labs CBC & BMP: 11/29/16 04:26 11/29/16 04:26 Lab Results: I have reviewed the past 24 hour labs
[2016-11-29] MEDS: DIGOXIN 0.125 MG TABLET PO SCH (12:54)
[2016-11-29] MEDS: SIMVASTATIN 10 MG TABLET PO SCH (20:38)
[2016-11-29] MEDS: DONEPEZIL 10 MG TABLET PO SCH (20:38)
--- NOTE | 2016-11-30 10:26 | Event Note ---
Patient's today's assessment should be included in the discharge note that is I do addendum to the discharge note from the 25 November 2016 please refer to the addendum and did note.
[2016-11-30] MEDS: ASPIRIN CHEW 81 MG TABLET PO SCH (10:32)
[2016-11-30] MEDS: MEGESTROL 400 MG/10 ML UDCUP PO SCH (10:32)
[2016-11-30] MEDS: LANSOPRAZOLE ODT 30 MG TABLET PER TUBE SCH (10:32)
[2016-11-30] MEDS: HYDROCORTISONE 100 MG VIAL IV SCH ×2 (10:32→10:37)
[2016-11-30] MEDS: DESITIN 4OZ/NYSTATIN 15 GRAM MIXTURE PASTE TOP SCH (10:33)
[2016-11-30] MEDS: MEMANTINE 10 MG TABLET PO SCH (10:33)
[2016-11-30] MEDS: FERROUS SULFATE 325 MG TABLET PO SCH (10:33)
[2016-11-30] MEDS: FLUTICASONE/SALMETEROL 250-50 DISKUS 14 DOSE INH SCH (10:33)
[2016-11-30] MEDS: DIGOXIN 0.125 MG TABLET PO SCH (12:21)
[2016-11-30 12:46] VITALS: BP 116/69
== END 2016-11-30 14:45 | DRG 871 ==
LOC: EDBD → EDUNIT# → N.ED 12:25 → N.EDINP 13:57 → SUATTDRO 13:57 → N.CC 15:24 → N.2E 11-26 18:55
PROVIDERS: ADMIT Family Medicine; ATTEND Internal Medicine Infectious Disease